=== PATIENT | female | born 1950 | race Caucasian/White ===

== ENCOUNTER 2016-07-12 22:33 | Inpatient (IN) | payer OTHER, MEDICARE ==
[~2016-07-12] VITALS: Ht 165.1 cm; Wt 74.8 kg
[~2016-07-12 22:33] MED LIST: ADVAIR DISKUS 21 DSK INH; ADVAIR DISKUS1 UNIT INH; ADVAIR DISKUS1 UNIT PO; ALBUTEROL 3 ML3 ML INH; AMITRIPTYLINE100 M1 PO; AMITRIPTYLINE100 MG PO; AMITRIPTYLINE50 MG PO; ASPIRIN CHILDRE81 MG PO; ASPIRIN EC81 M1 PO; ATIVAN0.5 MG PO; ATORVASTATIN CA20 MG PO; ATORVASTATIN CA40 MG PO; CARDIZEM 180 M180 MG PO; CARDIZEM CD 12120 MG PO; CARDIZEM CD180 MG PO; CELEBREX100 MG PO; CELEXA10 M1 PO; CEPHALEXIN500 M1 PO; CITALOPRAM HYDR10 MG PO; CLEOCIN HCL300 MG PO; DILTIAZEM 24HR180 M1 PO; DILTIAZEM ER120 MG PO; DILTIAZEM HCL240 MG PO; DILTIAZEM HYDR PO; ELAVIL 50 MG PO; FERGON240 MG PO; FERROUS GLUCON324 MG PO; FERROUS GLUCON325 MG PO; FOLIC ACID 1 MG PO; FOLIC ACID0.8 MG PO; FOLIC ACID1 M1 PO; FUROSEMIDE20 MG PO; GABAPENTIN100 MG PO; GABAPENTIN300 MG PO; HYDROCODONE/ACE1 TA1 PO; LASIX20 MG PO; LIDODERM 5% PAT1 PAT EXT; LOPRESSOR 25MG25 MG PO; LOPRESSOR50 MG PO; LOSARTAN POTASS25 MG PO; LOSARTAN POTASS50 MG PO; LYRICA50 M1 PO; LYRICA50 MG PO; MACROBID100 MG PO; MAG-OX 400400 MG PO; METFORMIN HCL1000 MG PO; METFORMIN HCL500 MG PO; METFORMIN1000 MG; METOPROLOL SUCC50 M1 PO; METOPROLOL TART50 MG PO; MIRALAX17 GM PO; NAPROXEN500 MG PO; NASONEX0.05 MG/Ac NS; NICOTINE7 MG/24 HR TP; NITRO-DUR1 EAC1 TOP; NITROSTAT0.4 M1 SL; NITROSTAT0.4 MG PO; NORCO 5-325 TA1 EACH PO; OMEPRAZOLE D/R20 MG PO; OMEPRAZOLE40 M1 PO; PERCOCET 325 MG1 TA2 PO; PROAIR HFA0.09 MG/Ac INH; PROTONIX 40MG T40 MG PO; ROXICODONE5 MG PO; SPIRIVA 18 MCG18 MCG INH; SPIRIVA18 MCG INH; Senokot S PO; TRAMADOL HCL50 MG PO; TYLENOL500 MG PO; ULTRAM(MONOGRAP50 MG PO; VANCOMYCIN 11000 MG IV; VITAB121000 PO; VITAMIN B-121000 MC3 PO; VITAMIN B12250 MCG PO
--- NOTE | 2016-07-12 22:41 | NUR ---
PT JOAN FROM HOME C/O "EMPHYSEMA EXACERBATION," PT STATES SHE HAS EMPHYSEMA AND WHEN SHE DRINKS ALCOHOL SHE HAS WORSENING SYMPTOMS AND SHE HAD A DRINK TODAY. PT ARRIVES ON 2L NC WHICH IS HER BASELINE. SATTING 98%. PT C/O OF FEELING WEAK THE PAST FEW DAYS BUT DENIES ANY SPECIFIC PAIN.
--- NOTE | 2016-07-12 22:53 | NUR ---
CXRAY BEING DONE AT BEDSIDE
--- NOTE | 2016-07-12 23:06 | RADIOLOGY REPORT ---
EXAMINATION: XR PORTABLE CHEST CLINICAL INFORMATION: COPD with weakness. Shortness of breath. COMPARISON: Multiple priors, most recently CT from 10/14/2015 TECHNIQUE: Portable AP view of the chest was obtained. FINDINGS: Cardiac leads overlie the chest. The lungs are well expanded. There is bibasilar subsegmental atelectasis. Oligemia of the upper lungs is consistent with known emphysema. No effusion or edema. No pneumothorax. The cardiomediastinal silhouette is unchanged. Chronic deformity of the right upper chest wall. IMPRESSION: Bibasilar subsegmental atelectasis. No dense consolidation. No edema.
[2016-07-12 23:21] LABS: ABSOLUTE BASOPHIL COUNT 0 /CUMM (0.0-0.2); ABSOLUTE EOSINOPHIL COUNT 0.3 /CUMM (0.0-0.7); ABSOLUTE LYMPH COUNT 1.7 /CUMM (1.2-3.4); ABSOLUTE MONOCYTE COUNT 0.6 /CUMM (0.10-0.60); BASOPHIL % 0.1 % (0.0-2.0); EOSINOPHIL % 3.8 % (0-5); GRANULOCYTE % 65.6 % (42.2-75.2); MEAN CORPUSCULAR HGB 21.8 PG (27.0-31.0); MEAN CORPUSCULAR HGB CONC 31.6 G/DL (33.0-37.0); MEAN CORPUSCULAR VOLUME 68.8 FL (81.0-99.0); MEAN PLATELET VOLUME 8.4 FL (7.4-10.4); PLATELET COUNT 216 /CUMM (130-400); RBC DISTRIBUTION WIDTH 16.4 % (11.5-14.5); RED BLOOD CELL CT 2.67 /CUMM (4.20-5.40); WHITE BLOOD CELL COUNT 7.6 /CUMM (4.8-10.8)
[2016-07-12 23:29] LABS: HEMATOCRIT 18.3 % (37-47)
--- NOTE | 2016-07-12 23:33 | NUR ---
CRITICAL TEST RESULTS [id number] LUIZA MONTANEZ 66 F TESTS AND RESULTS: HGB 5.8 HCT 18.3 Results received and read back by: LUIS ANGEL KEYES Results received date and time: 07/12/16 [id number] The following provider was notified of the results, and read the results back: RIKKI PEARSON Notified date and time: 07/12/16 at [id number]
--- NOTE | 2016-07-13 00:06 | NUR ---
PT MEDICATED WITH PROTONIX PER ORDER
--- NOTE | 2016-07-13 00:15 | ED DYSPNEA/ASTHMA COMPLAINT ---
History of Present Illness General Chief Complaint: Dyspnea (COPD, CHF, Other) Stated Complaint: SOB Source: patient, old records, friend Exam Limitations: no limitations Vital Signs & Intake/Output Vital Signs & Intake/Output Vital Signs Date Time Temp Pulse Resp B/P Pulse O2 O2 Flow FiO2 Ox Delivery Rate 07/12 2358 71 24 142/65 94 Nasal 3.0L Cannula 07/12 2238 96.8 65 20 138/67 98 Nasal 2.0L Cannula ED Intake and Output 07/13 0000 07/12 1200 Intake Total 0 Output Total Balance 0 Intake, Oral 0 Patient 160 lb Weight Allergies Coded Allergies: Sulfa (Sulfonamide Antibiotics) (Intermediate, ITCH 11/27/15) penicillin G (ITCH 11/27/15) Reconcile Medications Albuterol Sulfate (Proair Hfa) 0.09 MG/Actuation GUERITA 2 PUFF INH Q4-6 PRN PRN COPD (Reported) Albuterol Sulfate (Proventil) 2.5 MG/3 ML NEB 3 ML INH Q4-6 PRN PRN COPD ( Reported) Aspirin (Ecotrin) 81 MG ECT 1 TAB PO DAILY HEART HEALTH (Reported) Atorvastatin Calcium (Lipitor) 20 MG TABLET 1 TAB PO DAILY CHOLESTEROL ( Reported) Citalopram Hydrobromide (Celexa) 10 MG TAB 1 TAB PO DAILY MENTAL HEALTH ( Reported) Cyanocobalamin (Vitamin B-12) 1,000 MCG TAB 1 TAB PO DAILY V (Reported) DILTIAZEM HCL (Diltiazem 24HR Cd) 180 MG CER 1 CAP PO DAILY HEART (Reported) Fluticasone-Salmeterol (Advair 500-50 Diskus) 500 MCG-50 MCG/DOSE BLST.W.DEV 1 PUF INH BID COPD (Reported) Folic Acid 1 MG TABLET 1 TAB PO DAILY SUPPLEMENT (Reported) Hydrocodone/Acetaminophen ([place] 5-325 Tablet) 1 EACH TABLET 1-2 TAB PO Q6P PRN PAIN Lorazepam (Ativan) 0.5 MG TAB 1 TAB PO BID ANXIETY STOP TAKING AFTER EVENING DOSE ON 03/03/15 Metoprolol Tartrate (Lopressor) 25 MG TABLET 1 TAB PO BID HIGH BLOOD PRESSURE Reason to Stop at ADM: bradycardia, low bp Nitroglycerin (Nitrostat) 0.4 MG TAB.SUBL 0.4 MG PO PRN ANGINA (Reported) Nitroglycerin (Nitro-Dur) 1 EACH PATCH.TD24 1 PATCH TOP DAILY CHEST PAIN APPLY IN AM AND REMOVE AFTER 12 HOURS Omeprazole 40 MG ECC 1 CAP PO DAILY GI (Reported) Pregabalin (Lyrica) 50 MG CAPSULE 1 CAP PO BID neuropathy (Reported) Tiotropium [place] (Spiriva) 18 MCG CAP.W.DEV 1 CAP INH DAILY COPD (Reported) Core Measure Meds Pre-Hospital aspirin Triage Note: PT BIBA FROM HOME C/O "EMPHYSEMA EXACERBATION," PT STATES SHE HAS EMPHYSEMA AND WHEN SHE DRINKS ALCOHOL SHE HAS WORSENING SYMPTOMS AND SHE HAD A DRINK TODAY. PT ARRIVES ON 2L NC WHICH IS HER BASELINE. SATTING 98%. PT C/O OF FEELING WEAK THE PAST FEW DAYS BUT DENIES ANY SPECIFIC PAIN. Triage Nurses Notes Reviewed? yes Onset: Last week Duration: week(s):, constant, continues in ED, getting worse Timing: recent history Severity: moderate Activities at Onset: activity Prior Episodes/Possible Cause: occasional episodes Modifying Factors: Improves With: rest. Worsens With: movement. Associated Symptoms: lightheadedness, weakness LMP (ages 10-50): post menopausal : No Patient currently breastfeeds: No HPI: Several weeks prior to admission patient reports progressive weakness and fatigue lightheadedness shortness of breath improved with rest. She denies fever chills nausea vomiting diarrhea abdominal pain chest pain headache dysuria rash bleeding. She reports stools been normal color episode of diarrhea yesterday. Past History Travel History Traveled to [place] past 21 day No Medical History Any Pertinent Medical History? see below for history Neurological: NONE EENT: NONE Cardiovascular: aflutter, CAD, hypertension, AFIB/FLUTTER Respiratory: COPD Gastrointestinal: peptic ulcer disease Hepatic: NONE Renal: KIDNEY STONES ESWL, RENAL STENT PLACEME Musculoskeletal: DEGENERATIVE DISC ARTHRITIS PELVIC FX Psychiatric: alcohol dependence, depression Endocrine: diabetes Blood Disorders: NONE Cancer(s): breast cancer (1997 no chemotherapy ), cervical cancer (), salviary gland tumor WASHERY BOSS/Reproductive: NONE History of MRSA: Yes History of VRE: No History of CDIFF: No Surgical History Surgical History: BREAST LUMPECTOMY HYSTERECTOMY Psychosocial History Who do you live with Significant Other Services at Home None What is your primary language German Tobacco Use: Current Not Daily Family History Family History, If Any: MOTHER FH: kidney cancer FH: skin cancer BROTHER FH: lung cancer FHx: heart disease FATHER FH: diabetes mellitus Hx Contributory? No Review of Systems Review of Systems Constitutional: Reports: see HPI, weakness. EENTM: Reports: no symptoms. Respiratory: Reports: see HPI, short of breath. Cardiovascular: Reports: no symptoms. GI: Reports: no symptoms. Genitourinary: Reports: no symptoms. Musculoskeletal: Reports: no symptoms. Skin: Reports: no symptoms. Neurological/Psychological: Reports: no symptoms. Hematologic/Endocrine: Reports: no symptoms. Immunologic/Allergic: Reports: no symptoms. All Other Systems: Reviewed and Negative Physical Exam Physical Exam General Appearance: well developed/nourished, alert, awake, anxious, moderate distress, obese Head: atraumatic, normal appearance Eyes: Bilateral: PERRL, EOMI, pale conjunctivae. Ears, Nose, Throat: normal pharynx, normal ENT inspection Neck: normal inspection, supple, full range of motion, no midline tenderness Respiratory: chest non-tender, no respiratory distress, quiet respiration, decreased breath sounds Cardiovascular: regular rate/rhythm, normal peripheral pulses, norml femoral pulses equa Peripheral Pulses: 4+ carotid (R), 4+ carotid (L) Gastrointestinal: normal bowel sounds, soft, non-tender, no organomegaly Rectal: normal exam, normal rectal tone, heme positive stool, brown stool Extremities: normal inspection, normal capillary refill, normal range of motion, no edema Neurologic/Psych: no motor/sensory deficits, awake, alert, oriented x 3, normal mood/affect, juice scaleman II-XII nml as tested Skin: intact, warm/dry, pallor Lymphatic: no anterior cervical jed Core Measures ACS in differential dx? Yes Severe Sepsis Present: No Septic Shock Present: No Progress Differential Diagnosis: asthma, CHF, COPD, pneumonia Plan of Care: Orders Procedure Date/time Status Regular Diet 07/13 B Active Patient Data 07/13 0003 Active OXYGEN SETUP (GEN) 07/12 2353 Active Saline Lock 07/12 2353 Active Admit to inpatient 07/12 2353 Active Vital Signs 07/12 2353 Active Activity/Ambulation 07/12 2353 Active Code Status 07/12 2353 Active LEUKOCYTE POOR (PACKED CELLS) 07/12 2353 Active TYPE & SCREEN (NOT X-MATCH) 07/12 234 Active Intake & Output 07/12 232 Active TROPONIN LEVEL 07/12 2248 Complete MAGNESIUM 07/12 2248 Complete COMPREHENSIVE METABOLIC PANEL 07/12 2248 Complete CBC WITHOUT DIFFERENTIAL 07/12 2248 Complete B-TYPE NATRIURETIC PEP (BNP) 07/12 2248 Complete EKG 07/12 2233 Active Laboratory Tests 07/12/16 2300: Anion Gap 7, Estimated GFR > 60, BUN/Creatinine Ratio 43.8 H, Glucose 100 H, Calcium 8.0 L, Magnesium 1.8, Total Bilirubin 0.5, AST 42 H, ALT 39, Alkaline Phosphatase 152 H, Troponin I 0.01, Aow-H-Syfpekclotb Pept 1010 H, Total Protein 7.4, Albumin 3.7, Globulin 3.7, Albumin/Globulin Ratio 1.0 L, CBC w Diff NO MAN DIFF REQ, RBC 2.67 L, MCV 68.8 L, MCH 21.8 L, RDW 16.4 H, MPV 8.4, Gran % 65.6, Lymphocytes % 22.4, Monocytes % 8.1, Eosinophils % 3.8, Basophils % 0.1, Absolute Granulocytes 5.0, Absolute Lymphocytes 1.7, Absolute Monocytes 0.6, Absolute Eosinophils 0.3, Absolute Basophils 0, PUBS MCHC 31.6 L Diagnostic Imaging: Viewed by Me: Radiology Read. Discussed w/RAD: Radiology Read. CXR Impression: no acute abnormality Initial ED EKG: normal axis, normal intervals, normal p-waves, normal QRS complex, normal sinus rhythm, ST elevation (diffusely) Prior EKG: unchanged Rhythm Strip: normal sinus rhythm Departure Departure Time of Disposition: 12 Disposition: STILL A PATIENT Condition: Stable Clinical Impression Primary Impression: Upper GI bleeding Secondary Impressions: COPD exacerbation, Hyponatremia, Symptomatic anemia Referrals: SUJATA ZUÑIGA MD (PCP/Family) Departure Forms: Customer Survey General Discharge Information Admission Note Spoke With: MARYA LANTIGUA MD Documentation of Exam: Documentation of any treatments & extenuating circumstances including Concerns Regarding Discharge (functional status, medication knowledge or non-compliance, living conditions, etc.) that warrant an admission rather than observation: transfusion packed red blood cell medication adjustment GI evaluation continuing care discharge planning Critical Care Note Critical Care Note Critical Care Time: 30-74 min (40)
--- NOTE | 2016-07-13 00:23 | NUR ---
BED ASSIGNMENT [id number]
--- NOTE | 2016-07-13 00:45 | NUR ---
HOUSESTAFF AT BEDSIDE
--- NOTE | 2016-07-13 00:53 | NUR ---
PT A/O X4. RESP UNLABORED. SKIN WARM AND DRY. NO APPARENT DISTRESS.
--- NOTE | 2016-07-13 01:38 | History & Physical ---
LETICIA PEARSON,ASHLEY 07/13/16 0128: General Information and HPI MD Statement: I have seen and personally examined LUIZA MONTANEZ and documented this H&P. The patient is a 66 year old F who presented with a patient stated chief complaint of [Shortness of breath]. Source of Information: patient, old records, EMS Exam Limitations: no limitations History of Present Illness: Patient is a 66 YO F with PMH significant for MRSA + (2013), current smoker, COPD (on 2L home oxygen), CAD, HTN, AF/A.Flutter (not on anticoagulation), GERD, Diverticulosis, Hyponatremia (2/2 beer protomania), Diabetes, peripheral neuropathy, Nephrolithiasis (left ureteral stent), Breast cancer (s/p lumpectomy 1997), Cervical cancer 1979, salivary gland tumor came to the ER with increased weakness and progressive worsening of shortness of breath. She was able to walk around with a walker and short of breath at baseline with walking. For the past 1 week she was becoming increasingly short of breath even at rest, along with lightheadedness and dizziness. Today she had 4 beers after 2 weeks which acutely worsened her condition. She also reports cough with whitish phlegm production with chest pain. Her last BM was night (3days ago) - loose watery without any blood, preceeded by crampy abdominal pain. Still able to pass gas. She denies any fever, chills, nausea, vomiting, leg swellilng, blood loss from any region. She endorses decreased appetite these days. She denies any recent weight loss, sick contacts, travel, changes in vision/ hearing. Still smokes 1pack/day (50yr history), alcoholic. Denies illicit drug use. Follows Dr. Boss for cardio, Dr. Huntley is her pediatric nurse, Dr. Mendoza is her computer applications developer. Allergies/Medications Allergies: Coded Allergies: Sulfa (Sulfonamide Antibiotics) (Intermediate, ITCH 11/27/15) penicillin G (ITCH 11/27/15) Compliance With Home Meds: FAIR Past History Travel History Traveled to [place] past 21 day No Medical History Blood Transfusion Hx: Yes Neurological: NONE EENT: NONE Cardiovascular: aflutter, CAD, hypertension, AFIB/FLUTTER Respiratory: COPD Gastrointestinal: peptic ulcer disease Hepatic: NONE Renal: KIDNEY STONES ESWL, RENAL STENT PLACEME Musculoskeletal: DEGENERATIVE DISC ARTHRITIS PELVIC FX Psychiatric: alcohol dependence, depression Endocrine: diabetes Blood Disorders: NONE Cancer(s): breast cancer (1997 no chemotherapy ), cervical cancer (), salviary gland tumor INSIDE SALES COORDINATOR/Reproductive: NONE History of MRSA: Yes History of VRE: No History of CDIFF: No Surgical History Surgical History: BREAST LUMPECTOMY HYSTERECTOMY Past Family/Social History Family History Relations & Conditions if any MOTHER FH: kidney cancer FH: skin cancer BROTHER FH: lung cancer FHx: heart disease FATHER FH: diabetes mellitus Psychosocial History Where do you live? Home Who Do You Live With? self Services at Home: None Primary Language: Hebrew Smoking Status: Current Everyday Smoker ETOH Use: heavy use Illicit Drug Use: denies illicit drug use Living Will? no Functional Ability ADLs Independent: dressing, eating, toileting, bathing. Ambulation: independent IADLs Independent: shopping, housework, finances, food prep, telephone, medication admin. Review of Systems Review of Systems Constitutional: Reports: see HPI, malaise, weakness. EENTM: Reports: see HPI. Cardiovascular: Reports: see HPI, chest pain. Denies: orthopena, palpitations, peripheral edema. Respiratory: Reports: see HPI, cough, short of breath, sputum production. GI: Reports: see HPI, bloating, distention, nausea. Denies: abdominal pain, diarrhea, vomiting. Genitourinary: Reports: see HPI. Musculoskeletal: Reports: no symptoms, see HPI. Skin: Reports: no symptoms, see HPI. Neurological/Psychological: Reports: no symptoms, see HPI. Hematologic/Endocrine: Reports: no symptoms, see HPI. Immunologic/Allergic: Reports: no symptoms, see HPI. All Other Systems: Reviewed and Negative Comments ROS negative except the above Exam & Diagnostic Data Last 24 Hrs of Vital Signs/I&O Vital Signs Date Time Temp Pulse Resp B/P Pulse O2 O2 Flow FiO2 Ox Delivery Rate 07/13 0228 94 Nasal 4.0L Cannula 07/13 0200 22 96 Nasal 4.0L Cannula 07/13 0142 97.6 76 22 136/70 86 Nasal 2.5L Cannula 07/13 0108 98.3 85 20 130/69 96 Nasal 3.0L Cannula 07/12 2358 71 24 142/65 94 Nasal 3.0L Cannula 07/12 2238 96.8 65 20 138/67 98 Nasal 2.0L Cannula Intake & Output 07/13 0800 07/13 0000 07/12 1600 Intake Total 0 Output Total Balance 0 Intake, Oral 0 Patient 74.843 kg 72.575 kg Weight Physical Exam General Appearance Alert, Oriented X3, Cooperative, No Acute Distress Skin No Rashes, No Breakdown HEENT Atraumatic, PERRLA, EOMI Neck Supple, No JVD Cardiovascular Regular Rate, Normal S1, Normal S2, No Murmurs Lungs Clear to Auscultation, Normal Air Movement Abdomen No Tenderness, No Hepatospenomegaly, mildly distended with guarding for deep palpation. Hyperactive bowel sounds heard. Neurological Normal Speech, Strength at 5/5 X4 Ext, Normal Tone Extremities No Clubbing, No Cyanosis, No Edema Vascular Pulses Symmetrical Last 24 Hrs of Labs/Evan: Laboratory Tests 07/12/16 2300: Anion Gap 7, Estimated GFR > 60, BUN/Creatinine Ratio 43.8 H, Glucose 100 H, Calcium 8.0 L, Magnesium 1.8, Total Bilirubin 0.5, AST 42 H, ALT 39, Alkaline Phosphatase 152 H, Troponin I 0.01, [id number] Pept 1010 H, Total Protein 7.4, Albumin 3.7, Globulin 3.7, Albumin/Globulin Ratio 1.0 L, CBC w Diff NO MAN DIFF REQ, RBC 2.67 L, MCV 68.8 L, MCH 21.8 L, RDW 16.4 H, MPV 8.4, Gran % 65.6, Lymphocytes % 22.4, Monocytes % 8.1, Eosinophils % 3.8, Basophils % 0.1, Absolute Granulocytes 5.0, Absolute Lymphocytes 1.7, Absolute Monocytes 0.6, Absolute Eosinophils 0.3, Absolute Basophils 0, PUBS MCHC 31.6 L Diagnostic Data EKG Results NSR CXR Results NO acute abnormality suggested Other Results AXR Non obstructive bowel gas pattern visible Assessment/Plan Assessment: Patient is a 66 YO F with PMH significant for MRSA + (2013), current smoker, COPD (on 2L home oxygen), CAD, HTN, AF/A.Flutter (not on anticoagulation), GERD, Diverticulosis, Hyponatremia (2/2 beer protomania), Diabetes, peripheral neuropathy, Nephrolithiasis (left ureteral stent), Breast cancer (s/p lumpectomy 1997), Cervical cancer 1979, salivary gland tumor came to the ER with increased weakness and progressive worsening of shortness of breath. ER VS Afebrile, BP of 138/67mmHg, Pulse 71, On 2L NC Significant labs include H&H of 5.8/18.3, platelet count of 216 Sodium 128, potassium of 4.9 Guiac test in ER is positive Imaging CXR IMPRESSION: Bibasilar subsegmental atelectasis. No dense consolidation. No edema. AXR IMPRESSION: Nonobstructive bowel gas pattern. Mild colonic stool burden. The lung bases are clear. PLAN Acute drop in H&H with guiac positive stools (occult GI bleed) * H&H is 5.8/18.3 from 10.3/32.3 last march * Similar complaints in the past resolved with 5 units of PRBC * No signs of acute bleed with stable hemodynamics currently * Symptomatic anemia with shortness of breath, chest pain, lightheadedness and dizziness * 4units of PRBC's are ordered * GI consult in am for scopy if any * Monitor CBC closely Abdominal distention * Last night - loose watery without any blood, passing gas sitll. * AXR - distended bowel pattern without any obstruction * Currently started on diet COPD (on 2L home oxygen) * Currently short of breath without any wheezing which was more from anemia * Continue her home nebulizers and TRC * received a single dose of solumedrol 125mg IV in ER, no need for further IV steroids * rapid prednisone taper is suggested Histroy of hyponatremia - 128 now * Appears chronic * secondary to beet protomania * restric fluids for now * recheck BEP daily Alcohol abuse * History of heavy use * CIWA protocol * on folic acid and multivitamin Histroy of peripheral neuropathy * On pregabalin at home, would continue that History of hypertension * On metoprolol 25mg BID History of Atrial fibrillation/A.Flutter * Currently in NSR * on Diltiazem (Cardizem CD) 180mg daily History of depression * On citalopram 10mg daily - would continue that Code Status * Full Code As Ranked By This Provider Problem List: 1. ATRIAL FLUTTER 2. CHRONIC ALCOHOL ABUSE 3. Diabetes 4. Symptomatic anemia 5. Upper GI bleeding 6. Diverticulosis Core Measures/Miscellaneous Acute Coronary Syndrome ACS Diagnosis: No Cerebrovascular Accident CVA/TIA Diagnosis: No Congestive Heart Failure CHF Diagnosis: No Venous Thromboembolism VTE Risk Factors: Cancer/chemo/oth therapy VTE Prophylaxis Ordered Inpt: Pharm- Heparin No Mech VTE prophylaxis d/t: No contraindications No VTE Pharm Prophylaxis d/t: No contraindications VTE Diagnosis: No VTE Type: NONE VTE Confirmed by (Test): NONE Severe Sepsis Severe Sepsis Present: No Septic Shock Septic Shock Present: No Miscellaneous Documentation Attending Case Discussed With: ERIBERTO LANTIGUA MDYun Primary Care Physician: SUJATA ZUÑIGA MD Patient sees these Specialists Dr. Boss, Dr. Mendoza, Dr. Huntley Level of Patient Care: General Medicine MAITE LANTIGUA MD 07/13/16 0546: Attending MD Review Statement Attending Statement Attending MD Statement: examined this patient, discuss w/resident/PA/BACTERIOLOGIST FOOD, agreed w/resident/PA/BACTERIOLOGIST FOOD Attending Assessment/Plan: 66 yo F smoker with h/o chronic hypoxic respiratory failure with moderate COPD on 2L, Afib not on AC due to falls, alcohol abuse, MRSA, CAD, HTN, T2DM, is here with 1 week h/o progressively worsening dyspnea on exertion, weakness and lightheadedness. She has exertional dyspnea at baseline and a chronic cough, but reports the symptoms have gotten worse. She continues to smoke and consumes alcohol (about 4 beers) every 1-2 weeks. She denies melena, hematemesis or BRBPR. She is on baby aspirin, but denies frequent NSAID use. Last EGD (2014): short segment Maldonado's esophagus/ hiatal hernia path suggestive of gastric mucosa with intestinal metaplasia. Colonoscopy: polyp (tubular adenoma), diverticulosis. She was last admitted Feb 2015 for fall, alcohol use, hyponatremia and was advised 1200 fluid restriction. VSS. Exam AAO, in mild distress due to dyspnea, MMM, Chest b/l reduced air entry at bases, no wheeze or rhonchi. Abd soft, distended, BS+. Labs: H/H 5.8/18.3, microcytic anemia, Na 128, BUN 35, AST 42, trop neg, proBNP 1010, CXR: bibasilar subsegmental atelectasis, no edema or consolidation. EKG: SR. Rectal exam: brown stool, heme positive. 1. Acute on chronic hypoxic respiratory failure in the setting of acute on chronic anemia (?slow GI bleed), with mild COPD exacerbation. Guaiac all stools, keep Hb > 8.0, transfuse 2 units PRBC, check orthostats, obtain GI consult, continue IV PPI. Avoid NSAIDs, hold aspirin. Check iron studies, TSH, free T4, B12 and folic acid. TRC nebs, sputum culture, received IV steroid in ER, will do a rapid PO steroid taper, no need for tj [place] consult (Dr. Huntley) in AM. Patient reports she does not use Advair as it cause her chest tightness. Serial EKG and troponin, obtain Echo. Consider cardio consult if any new changes. Smoking cessation counseling. 2. Abdominal distension, Xray shows nonobstructive bowel gas pattern, mild colonic stool. Will give bowel regime. 3. Hyponatremia 2/2 alcohol use likely beer potomania. Check alcohol levels. Initiate fluid restriction of 1200 mls. Give banana bag. CIWA protocol and monitor for withdrawal if any. DVT ppx Alps. Full code. NOBLE STAFFORD 07/13/16 0558: General Information and HPI Allergies/Medications Home Med list Aspirin (Ecotrin*) 81 MG TABLET.DR 1 TAB PO DAILY Supplement (Reported) Citalopram Hydrobromide (Celexa) 10 MG TABLET 1 TAB PO DAILY Mental health ( Reported) Cyanocobalamin (Vitamin B-12) 1,000 MCG TABLET 1 TAB PO DAILY Supplement ( Reported) Diltiazem HCl (Diltiazem 24HR Cd) 180 MG CAP.ER.24H 1 CAP PO DAILY HTN ( Reported) Folic Acid 1 MG TABLET 1 TAB PO DAILY Supplement (Reported) Metoprolol Tartrate (Lopressor) 50 MG TABLET 0.5 TAB PO BID heart (Reported) Nitroglycerin (Nitrostat) 0.4 MG TAB.SUBL 1 TAB SL AD PRN Angina (Reported) 1st sign of attack; may repeat every 5 minutes until relief; if pain persists after 3 tablets in 15 minutes, prompt medical att Omeprazole 40 MG CAPSULE.DR 1 CAP PO DAILY GERD (Reported) Pregabalin (Lyrica) 50 MG CAPSULE 1 CAP PO BID Peripheral neuropathy ( Reported) Tiotropium [place] (Spiriva) 18 MCG CAP.W.DEV 1 CAP INH DAILY COPD (Reported) Resident Review Statement Resident Statement: examined this patient, discussed with internet and e business project manager, agreed with internet and e business project manager, discussed with family Other Findings: This is a 66-year-old old female, current smoker, history of alcoholism, past medical history of hypertension, atrial flutter, coronary artery disease, COPD on 2 L of home oxygen, chronic alcohol dependence (6 beers per day), nephrolithiasis, chronic back pain, history of multiple malignancies (breast cancer, salivary) chronic hyponatremia, nephrolithiasis status post left ventricle stent placement, came in today with chief complaint of worsening shortness of breath since last 1 week prior to admission. The patient does have COPD at baseline and uses 2 L of home oxygen, she continues to smoke 1-1/2 pack per day, however she says that her shortness of breath has been worse since last 1 week, she has been feeling extremely tired and fatigued and upon walking few steps she becomes extremely short of breath. She also complained of associated lightheadedness and dizziness. On the same day prior to admission she had consumed 4 beers after 2 weeks of abstinence. He also complains of vague lower abdominal pain, she describes it as discomfort. She also reported one episode of diarrhea along with lower abdominal discomfort, no blood. Review of system positive for pallor, shortness of breath. Physical exam patient alert oriented 3. HEENT. Pupils equal and reactive to light, no lymphadenopathy, mucous membranes moist. CVS S1 and S2 present, no murmur. Lungs bilaterally clear lungs, air entry present. PA : Bowel sounds present, soft, mild tenderness on deep palpation in the lower abdominal area. Start Diamox present bilaterally in the lower abdomen. Extremities : Pulses palpable, capillary refill normal, no cyanosis clubbing or edema. Vitals on admission TMax of 96.8, pulse of 71, respiration of 24, blood pressure of 142/65, she was 94% saturating on 3 L. Relevant labs white count of 7.6, H/H of 5.8/18.3 (baseline H/H of 10.3/32.3), platelet of 216. Sodium of 128 (baseline sodium between 123-131), potassium of 4.9, BUN and creatinine of 35/0.8, glucose of 100. ProBNP elevated at 1010 (however baseline proBNP tends to be between 2000 and 3000). Chest x-ray did not show any acute cardiopulmonary findings other than bilateral subsegmental atelectasis. No evidence of any consolidation. Of note patient had last colonoscopy with polypectomy on 03/21/2015 and pathology was negative for any carcinoma. Previosuly Patient had a nuclear stress test with dipyridamole 221st and there was no EKG evidence of ischemia. Last echo was 11/27/2015 with greater than 55% ejection fraction, no wall motion abnormalities, trace MR, TR, right ventricular systolic pressure 54 mmHg. Patient also had PFTs on 08/03/2011 with mild obstructive lung disease. Patient follows up with Dr. de leon as her pediatric nurse, Dr. Mendoza as the GI doctor and Dr. Boss for cardiology. We will admit the patient to general medicine floor for the treatment of following problems. #1 Acute blood loss anemia ? Occult GI bleed. * Stool guaiac was positive while in the emergency department. * Continue to maintain 2 large-bore IV needles all the time. * Cross type and match. * Please transfuse 3-4 units of packed red blood cells once the cross-matching and typing is done. * Continue to monitor CBCs q12 * Continue IV PPI. * If any active bleed/concerning bleed, please contact GI stat * Abdominal x-ray showed nonobstructive bowel gas pattern, mild colonic stool burden. * Patient was started on when necessary MiraLAX and when necessary Colace. * We will check iron studies, B12 and folate levels for further investigation of the anemia. * we will hold aspirin #2 Acute on chronic hypoxemic respiratory failure. * Patient has history of COPD, however the current shortness of breath seems to be secondary to significant symptomatic anemia. * Continue TRC nebulizations. She'll be Dr. Huntley in the a.m. * Patient says that she does not use Advair as this gives her chest tightness. * Continue oxygen with nasal cannula to maintain saturation greater than 92% all the time. Problem #3 hyponatremia * The patient does not seem extremely dry, this could be euvolemic versus hypovolemic hyponatremia. * She has extensive history of consuming beer this could also be secondary to be a report of david. * At baseline her sodium does tend to run on the lower side. * However we will continue water restriction and to new to trend the sodium. Problem #4 history of alcoholism. * Patient's alcohol level is within normal limits. * She had drank a few beers one day prior to admission however had been sober for last 2 days. * We will give the patient banana bag, multivitamin thiamine and folate. * We will continue CIWA protocol for now. * Further hospital course, if the patient does not seem to be withdrawing from alcohol, please Dc CIWA. 5. History of coronary artery disease and A. fib * She is in sinus rhythm right now. She was not started on any anticoagulation because of history of multiple falls. * Continue Cardizem 180 mg daily. * Hold aspirin 81 mg daily * Continue nitroglycerin 0.4 mg as needed for chest pain * Initial troponins were negative.Continue metoprolol 25 mg twice a day.Continue Lipitor 20 mg daily Continue home medication of Celexa 10 mg once daily, B12, Lopressor 25 mg once daily, A, 50 mg once daily, and spiriva DVT prophylaxis with Alps. [id number] and severe pain pathway ordered. Patient is full code. Heart healthy diet.
[2016-07-13 01:42] VITALS: BP 136/70
--- NOTE | 2016-07-13 03:31 | NUR ---
RECEIVED PATIENT FROM ED. SHORT OF BREATH ON ARRIVAL, SP02 84% ON 3L NC. INCREASED TO 5L, SP02 INCREASED TO 96%, DECREASED TO 4L, SP02 94%. LUNG SOUNDS ARE FINE CRACKLES WITH SCATTERED WHEEZES. LESS SOB AFTER SETTLED IN. PT STATES SHE IS A CURRENT SMOKER AND DRINKS 5 BEERS DAILY. BED ALARM SHEEP FARMER COOL WITHIN REACH. PT STATES SHE HAS NOT BEEN VOMITING OR HAVING DARK STOOLS. PT HAS H/H 5.8, 18.3. VSS. 1ST UNIT OF BLOOD STARTED AND PATIENT TRANSPORTED TO [facility] WITH RN AND MST. ABDOMEN IS SOFT/DISTENDED. ORIENTED TO 2NB.
--- NOTE | 2016-07-13 03:45 | RADIOLOGY REPORT ---
EXAMINATION: XR ABDOMEN MULTIPLE VIEWS CLINICAL INDICATION: Distention, diarrhea. Mild guarding. COMPARISON: 12/12/2014 TECHNIQUE: 2 views of the abdomen FINDINGS: There is a nonobstructive bowel gas pattern. Gas and stool are seen throughout the colon with stool in the rectum. No free air. Degenerative changes of the spine. The lung bases are clear. IMPRESSION: Nonobstructive bowel gas pattern. Mild colonic stool burden.
--- NOTE | 2016-07-13 05:08 | NUR ---
PT COMPLAING OF PAIN ACROSS CHEST. DR. MELGAR NOTIFIED. EKG AND TROPONIN DONE. QUESTIONED OF TRANSFUSION REACTION TO MD PT JUST COMPLETED ONE UNIT OF BLOOD. DOES NOT WISH TO WORK UP FOR TRANSFUSION REACTION PATIENT CAME IN WITH THIS COMPLAINT. 2ND UNIT OF BLOOD HUNG. TYLENOL GIVEN FOR PAIN
[2016-07-13 05:28] LABS: ABSOLUTE BASOPHIL COUNT 0 /CUMM (0.0-0.2); ABSOLUTE EOSINOPHIL COUNT 0 /CUMM (0.0-0.7); ABSOLUTE GRANULOCYTE CT 4.5 /CUMM (1.4-6.5); ABSOLUTE LYMPH COUNT 0.5 /CUMM (1.2-3.4); ABSOLUTE MONOCYTE COUNT 0 /CUMM (0.10-0.60); BASOPHIL % 0.1 % (0.0-2.0); EOSINOPHIL % 0.2 % (0-5); GRANULOCYTE % 88.5 % (42.2-75.2); MEAN CORPUSCULAR HGB 22.9 PG (27.0-31.0); MEAN CORPUSCULAR HGB CONC 31.9 G/DL (33.0-37.0); MEAN CORPUSCULAR VOLUME 71.8 FL (81.0-99.0); MEAN PLATELET VOLUME 8.2 FL (7.4-10.4); PLATELET COUNT 188 /CUMM (130-400); RBC DISTRIBUTION WIDTH 17.6 % (11.5-14.5)
[2016-07-13 05:39] LABS: HEMATOCRIT 23.7 % (37-47)
--- NOTE | 2016-07-13 05:47 | Admission Certification ---
Admission Certification Certification Statement - As attending physician, I certify that at the time of - admission, based on clinical presentation, severity of - symptoms, need for further diagnostic testing and - therapeutic interventions, and risk of adverse outcomes - without in-hospital treatment, in my clinical assessment, - this patient requires an acute hospital stay for a minimum - of two nights or longer. I have also considered psychsocial - factors such as support system, advanced age, financial - issues, cognitive issues, and failed out-patient treatments, - past re-admission history, safety of patient, and lack of - compliance as applicable. Specific rationale supporting this admission is: Acute on chronic hypoxic respiratory failure, acute on chronic symptomatic anemia, possible COPD exacerbation.
[2016-07-13 05:58] LABS: WHITE BLOOD CELL COUNT 5.1 /CUMM (4.8-10.8)
--- NOTE | 2016-07-13 08:13 | Cons- Gastroenterology ---
General Information and HPI Consulting Request Date of Consult: 07/13/16 Requested By: GRZEGORZ PEARSON,MARYA Reason for Consult: Anemia, change in bowel habits. Source of Information: patient, old records Exam Limitations: no limitations History of Present Illness: Ms. Vega is a 66 year old female with a history of COPD on home o2 who presented to last night with complaints of worsening shortness of breath. She notes that over the past several weeks she has had progressive shortness of breath to the point where she has not even been able to walk a few steps. She denies any fevers or chills and she has been without any sputum production. She also reports diffuse chest pains with the shortness of breath. She has been having some loose stool, but she denies black tarry stool and she has not noted any blood in her stool. She has also been without any spitting abdominal pain with eating, heartburn or dysphagia. She underwent an endoscopic workup in March 2015 for anemia which was unremarkable at that time. She has not undergone a recent PillCam, but she notes having one in 2006 that showed non- bleeding AVMs. On arrival in the emergency room she was hemodynamically stable, but was found to have a hemoglobin of 5.8 with an MCV of 71.8 which was significant fall from when her hemoglobin was last checked to [facility] computer system in March 2016 when it was 10.3. She was admitted to the medical service where she has remained stable and has not had any bowel movements. She has continued to complain of some chest pain, but does report feeling mildly improved after receiving 2 units of packed red blood cells last night. Allergies/Medications Allergies: Coded Allergies: Sulfa (Sulfonamide Antibiotics) (Intermediate, ITCH 11/27/15) penicillin G (ITCH 11/27/15) Home Med List: Aspirin (Ecotrin*) 81 MG TABLET.DR 1 TAB PO DAILY Supplement (Reported) Citalopram Hydrobromide (Celexa) 10 MG TABLET 1 TAB PO DAILY Mental health ( Reported) Cyanocobalamin (Vitamin B-12) 1,000 MCG TABLET 1 TAB PO DAILY Supplement ( Reported) Diltiazem HCl (Diltiazem 24HR Cd) 180 MG CAP.ER.24H 1 CAP PO DAILY HTN ( Reported) Folic Acid 1 MG TABLET 1 TAB PO DAILY Supplement (Reported) Metoprolol Tartrate (Lopressor) 50 MG TABLET 0.5 TAB PO BID heart (Reported) Nitroglycerin (Nitrostat) 0.4 MG TAB.SUBL 1 TAB SL AD PRN Angina (Reported) 1st sign of attack; may repeat every 5 minutes until relief; if pain persists after 3 tablets in 15 minutes, prompt medical att Omeprazole 40 MG CAPSULE.DR 1 CAP PO DAILY GERD (Reported) Pregabalin (Lyrica) 50 MG CAPSULE 1 CAP PO BID Peripheral neuropathy ( Reported) Tiotropium [place] (Spiriva) 18 MCG CAP.W.DEV 1 CAP INH DAILY COPD (Reported) Current Medications: Current Medications Sig/Miriam Start time Last Medication Dose Route Stop Time Status Admin Albuterol Sulfate 3 ML ONCE ONE 07/12 2299 DC 07/12 INH 07/12 2300 225 Citalopram 10 MG DAILY 07/13 1000 AC Hydrobromide PO Cyanocobalamin 1,000 MCG DAILY 07/13 1000 AC PO Diltiazem HCl 180 MG DAILY 07/13 1000 AC PO Docusate Sodium 100 MG DAILY NEEDED PRN 07/13 0715 AC PO Folic Acid 1 MG DAILY 07/13 1000 AC PO Ipratropium [place] 2.5 ML ONCE ONE 07/12 2299 DC 07/12 INH 07/12 2301 2258 Methylprednisolone 0 .STK-MED ONE 07/12 2306 DC .ROUTE Methylprednisolone 125 MG ONCE ONE 07/120 DC 07/12 IV 07/12 2301 2307 Metoprolol Tartrate 25 MG BID 07/13 1000 AC PO Omeprazole 40 MG DAILY AC 07/13 0700 AC 07/13 PO 0703 Pantoprazole Sodium 40 MG BOLUS ONE 07/130 DC 07/13 IV 07/13 020 0416 Pantoprazole Sodium 0 .STK-MED ONE 07/12 2358 DC IV Pantoprazole Sodium 40 MG ONCE ONE 07/12 2345 DC 07/12 IV 07/12 2346 2358 Polyethylene Glycol 17 GM DAILY PRN 07/13 0715 AC PO Potassium Chloride 40 MEQ .Q10H 07/13 0200 AC Dextrose/Water 1,000 ML IV Prednisone 40 MG DAILY 07/13 1000 AC PO Pregabalin 50 MG BID 07/13 1000 AC PO Past History Travel History Traveled to [place] past 21 day No Medical History Blood Transfusion Hx: Yes Neurological: NONE EENT: NONE Cardiovascular: aflutter, CAD, hypertension, AFIB/FLUTTER Respiratory: COPD Gastrointestinal: peptic ulcer disease, GERD, barretts, SB pill cam in 2007 showed non-bleeding AVMs Hepatic: NONE Renal: KIDNEY STONES ESWL, RENAL STENT PLACEME Musculoskeletal: DEGENERATIVE DISC ARTHRITIS PELVIC FX Psychiatric: alcohol dependence, depression Endocrine: diabetes Blood Disorders: NONE Cancer(s): breast cancer (1997 no chemotherapy ), cervical cancer (), salviary gland tumor PER DIEM/Reproductive: NONE Surgical History Surgical History: BREAST LUMPECTOMY HYSTERECTOMY Family History Relations & Conditions If Any: MOTHER FH: kidney cancer FH: skin cancer BROTHER FH: lung cancer FHx: heart disease FATHER FH: diabetes mellitus Psychosocial History Where Do You Live? Home Who Do You Live With? self Services at Home: None Primary Language: Czech Smoking Status: Current Everyday Smoker ETOH Use: heavy use Illicit Drug Use: denies illicit drug use Living Will? no Functional Ability ADLs Independent: dressing, eating, toileting, bathing. Ambulation: independent IADLs Independent: shopping, housework, finances, food prep, telephone, medication admin. Review of Systems Review of Systems Constitutional: Reports: malaise, weakness. Denies: chills, fever. EENTM: Denies: no symptoms. Cardiovascular: Reports: chest pain, palpitations. Denies: peripheral edema. Respiratory: Reports: short of breath. Denies: cough, hemoptysis. GI: Reports: see HPI. Genitourinary: Denies: no symptoms. Musculoskeletal: Reports: joint pain, muscle pain. Denies: joint swelling. Skin: Denies: no symptoms. Neurological/Psychological: Denies: no symptoms. Hematologic/Endocrine: Denies: no symptoms. Immunologic/Allergic: Denies: no symptoms. All Other Systems: Reviewed and Negative Exam & Diagnostic Data Vital Signs and I&O Vital Signs Date Time Temp Pulse Resp B/P Pulse O2 O2 Flow FiO2 Ox Delivery Rate 07/13 0228 94 Nasal 4.0L Cannula 07/13 0200 22 96 Nasal 4.0L Cannula 07/13 0142 97.6 76 22 136/70 86 Nasal 2.5L Cannula 07/13 0108 98.3 85 20 130/69 96 Nasal 3.0L Cannula 07/12 2358 71 24 142/65 94 Nasal 3.0L Cannula 07/128 96.8 65 20 138/67 98 Nasal 2.0L Cannula Intake & Output 07/13 0400 07/12 04007/11 0400 Intake Total 800 0 Output Total 800 Balance 0 0 Intake, Blood 600 Product Intake, Oral 200 0 Number 2 Bowel Movements Output, Urine 800 Patient 165 lb Weight Physical Exam General Appearance: alert, awake, anxious, moderate distress Head: atraumatic, normal appearance Eyes: Bilateral: normal appearance. Ears, Nose, Throat: normal pharynx, normal ENT inspection, hearing grossly normal Neck: normal inspection, supple, full range of motion Respiratory: chest non-tender, lungs clear, decreased breath sounds Cardiovascular: regular rate/rhythm Gastrointestinal: normal bowel sounds, soft, non-tender, no organomegaly Rectal: deferred Back: normal inspection, normal range of motion Extremities: normal inspection Neurologic/Psych: no motor/sensory deficits, awake, alert, oriented x 3 Skin: intact, normal color, warm/dry Results Pertinent Lab Results: Laboratory Tests 07/13 07/12 0504 2300 Chemistry Sodium (137 - 145 mmol/L) 128 L Potassium (3.5 - 5.1 mmol/L) 4.9 Chloride (98 - 107 mmol/L) 95 L Carbon Dioxide (22 - 30 mmol/L) 26 Anion Gap (5 - 16) 7 BUN (7 - 17 mg/dL) 35 H Creatinine (0.5 - 1.0 mg/dL) 0.8 Estimated GFR (>60 ml/min) > 60 BUN/Creatinine Ratio (7 - 25 %) 43.8 H Glucose (65 - 99 mg/dL) 100 H Calcium (8.4 - 10.2 mg/dL) 8.0 L Magnesium (1.6 - 2.3 mg/dL) 1.8 Total Bilirubin (0.2 - 1.3 mg/dL) 0.5 AST (14 - 36 U/L) 42 H ALT (9 - 52 U/L) 39 Alkaline Phosphatase (<127 U/L) 152 H Troponin I (< 0.11 ng/ml) < 0.01 0.01 Qez-O-Cfrgfyodedl Pept (<125 pg/mL) 1010 H Total Protein (6.3 - 8.2 g/dL) 7.4 Albumin (3.5 - 5.0 g/dL) 3.7 Globulin (1.9 - 4.2 gm/dL) 3.7 Albumin/Globulin Ratio (1.1 - 2.2 %) 1.0 L Hematology CBC w Diff NO MAN DIFF REQ NO MAN DIFF REQ WBC (4.8 - 10.8 /CUMM) 5.1 7.6 RBC (4.20 - 5.40 /CUMM) 3.30 L 2.67 L Hgb (12.0 - 16.0 G/DL) 7.6 L 5.8 *L Hct (37 - 47 %) 23.7 L 18.3 *L MCV (81.0 - 99.0 FL) 71.8 L 68.8 L MCH (27.0 - 31.0 PG) 22.9 L 21.8 L RDW (11.5 - 14.5 %) 17.6 H 16.4 H Plt Count (130 - 400 /CUMM) 188 216 MPV (7.4 - 10.4 FL) 8.2 8.4 Gran % (42.2 - 75.2 %) 88.5 H 65.6 Lymphocytes % (20.5 - 51.1 %) 10.5 L 22.4 Monocytes % (1.7 - 9.3 %) 0.7 L 8.1 Eosinophils % (0 - 5 %) 0.2 3.8 Basophils % (0.0 - 2.0 %) 0.1 0.1 Absolute Granulocytes (1.4 - 6.5 /CUMM) 4.5 5.0 Absolute Lymphocytes (1.2 - 3.4 /CUMM) 0.5 L 1.7 Absolute Monocytes (0.10 - 0.60 /CUMM) 0 L 0.6 Absolute Eosinophils (0.0 - 0.7 /CUMM) 0 0.3 Absolute Basophils (0.0 - 0.2 /CUMM) 0 0 PUBS MCHC (33.0 - 37.0 G/DL) 31.9 L 31.6 L Toxicology Serum Alcohol (<10 MG/DL) < 10.0 Imaging/Other Studies: 03/22 colonoscopy:Findings: The rectum was normal. There were sigmoid diverticula. There was a diminutive polyp at 40 cm which was resected with cold snare, with good hemostasis. The remainder of the colon to the base of the cecum was unrevealing. There were no obstructing lesions identified, nor evident bleeding lesions. Impression: * Polyp * Diverticulosis * Incomplete preparation COLON POLYP AT 40 CM.: TUBULAR ADENOMA. NEGATIVE FOR EVIDENCE OF INVASIVE CARCINOMA. EGD: Findings: The esophagus had normal caliber and contour. The mucosa was intact throughout. There were no areas of erosion, ulceration or nodularity. There were no varices. The gastroesophageal junction was at 37 cm from the incisors, with an irregular Z line. This was examined and white light and narrow band imaging. Biopsies were obtained in retroflexion. The cardia was otherwise normal. There was a small hiatal hernia. The stomach had normal distention, and active antral peristalsis. The mucosa and folds were normal throughout. The pyloric channel, duodenal bulb and duodenal sweep were normal. Impression: * Short segment Maldonado's esophagus * Small hiatal hernia Bx: gastric mucosa with IM, mild chronic inflammation and reactive squamous mucosa Assessment/Plan Assessment/Recommendations: Assessment: Ms. Monsalve is a 66-year-old female with COPD who presents with worsening shortness of breath likely secondary to her anemia as she has had almost a 5 g hemoglobin drop over the past 3 months. As she has a low MCV and denies any history of melena or bright blood per rectum I suspect she has had occult blood losses over the past several months which is likely from small bowel AVMs which were appreciated on a PillCam in 2006. She underwent a colonoscopy and endoscopy in March 2015 which I do not feel need to be repeated at this time, albeit it should be noted that the preparation on the colonoscopy was noted to be suboptimal. Considering she is without active overt bleeding and her hemoglobin has corrected appropriately with transfusion so far I'm hopeful that she can be discharged after receiving a few more units to either pursue a repeat small bowel PillCam as an outpatient and/or a double balloon enteroscopy if it is felt she can tolerate it with her underlying lung disease. Recommendations: 1. Follow CBCs every 12 hours and transfuse as needed to keep hemoglobin greater than 8 or as per cardiology recommendations. 2. Avoid NSAIDs. 3. Notify GI for signs of overt GI bleeding. 4. Maintain 2 large-bore IVs at all times. 5. Advance diet as tolerated 6. Follow up iron studies and would start supplemental iron 7. If patient has diarrhea while inpatient will check stool for C. difficile, culture, and O&P. 8. If she remains without signs of overt GI bleeding consideration will be given to pursue an outpatient small bowel PillCam versus direct referral for a double-balloon enteroscopy if it is felt that her respiratory status can tolerate such a procedure. 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 As of now there are no plans to pursue a repeat endoscopic workup while an inpatient. Problem List: 1. ATRIAL FLUTTER 2. Anemia 3. GI bleeding 4. Upper GI bleeding 5. Symptomatic anemia Copies To: ZARA PEARSON,SUJATA Consult Acknowledgment - Thank you for your consult request.
[2016-07-13 08:22] VITALS: BP 130/62
[2016-07-13 12:08] VITALS: BP 130/68
--- NOTE | 2016-07-13 12:12 | Cons- Pulmonary ---
General Information and HPI Consulting Request Date of Consult: 07/13/16 Requested By: Med team History of Present Illness: Ms. Vega is a 66 year old female with a history of COPD on home o2 who presented to last night with complaints of worsening shortness of breath. She notes that over the past several weeks she has had progressive shortness of breath to the point where she has not even been able to walk a few steps. She denies any fevers or chills and she has been without any sputum production. She also reports diffuse chest pains with shortness of breath. She has been having some loose stool, but she denies black tarry stool and she has not noted any blood in her stool. She has also been without any spitting abdominal pain with eating, heartburn or dysphagia. She underwent an endoscopic workup in March 2015 for anemia which was unremarkable at that time. She has not undergone a recent PillCam, but she notes having one about 15 years ago for anemia and she is uncertain of the results. On arrival in the emergency room she was hemodynamically stable, but was found to have a hemoglobin of 5.8 with an MCV of 71.8 which was significant fall from when her hemoglobin was last checked to [facility] computer system in March 2016 when it was 10.3. She was admitted to the medical service where she has remained stable and has not had any bowel movements. She has continued to complain of some chest pain, but does report feeling mildly improved after receiving 2 units of packed red blood cells last night. She also reports cough with whitish phlegm production with chest pain. Unfortunately she continues to drink and smoke recently Allergies/Medications Allergies: Coded Allergies: Sulfa (Sulfonamide Antibiotics) (Intermediate, ITCH 11/27/15) penicillin G (ITCH 11/27/15) Home Med List: Aspirin (Ecotrin) 81 MG ECT 1 TAB PO DAILY HEART HEALTH (Reported) Citalopram Hydrobromide (Celexa) 10 MG TAB 1 TAB PO DAILY MENTAL HEALTH ( Reported) Cyanocobalamin (Vitamin B-12) 1,000 MCG TAB 1 TAB PO DAILY V (Reported) DILTIAZEM HCL (Diltiazem 24HR Cd) 180 MG CER 1 CAP PO DAILY HEART (Reported) Folic Acid 1 MG TABLET 1 TAB PO DAILY SUPPLEMENT (Reported) Metoprolol Tartrate (Lopressor) 25 MG TABLET 1 TAB PO BID HIGH BLOOD PRESSURE Reason to Stop at ADM: bradycardia, low bp Nitroglycerin (Nitrostat) 0.4 MG TAB.SUBL 0.4 MG PO PRN ANGINA (Reported) Omeprazole 40 MG ECC 1 CAP PO DAILY GI (Reported) Pregabalin (Lyrica) 50 MG CAPSULE 1 CAP PO BID neuropathy (Reported) Tiotropium [place] (Spiriva) 18 MCG CAP.W.DEV 1 CAP INH DAILY COPD (Reported) Review of Systems Comments Review of Systems Constitutional: Reports: see HPI, malaise, weakness. EENTM: Reports: see HPI. Cardiovascular: Reports: see HPI, chest pain. Denies: orthopena, palpitations, peripheral edema. Respiratory: Reports: see HPI, cough, short of breath, sputum production. GI: Reports: see HPI, bloating, distention, nausea. Denies: abdominal pain, diarrhea, vomiting. Genitourinary: Reports: see HPI. Musculoskeletal: Reports: no symptoms, see HPI. Skin: Reports: no symptoms, see HPI. Neurological/Psychological: Reports: no symptoms, see HPI. Hematologic/Endocrine: Reports: no symptoms, see HPI. Immunologic/Allergic: Reports: no symptoms, see HPI. All Other Systems: Reviewed and Negative Comments ROS negative except the above Past History Travel History Traveled to [place] past 21 day No Medical History Blood Transfusion Hx: Yes Neurological: NONE EENT: NONE Cardiovascular: aflutter, CAD, hypertension, AFIB/FLUTTER Respiratory: COPD Gastrointestinal: peptic ulcer disease, GERD, barretts, SB pill cam in 2006 showed non-bleeding AVMs Hepatic: NONE Renal: KIDNEY STONES ESWL, RENAL STENT PLACEME Musculoskeletal: DEGENERATIVE DISC ARTHRITIS PELVIC FX Psychiatric: alcohol dependence, depression Endocrine: diabetes Blood Disorders: NONE Cancer(s): breast cancer (1998 no chemotherapy ), cervical cancer (), salviary gland tumor MANDARIN SPEAKING NANNY/Reproductive: NONE Surgical History Surgical History: BREAST LUMPECTOMY HYSTERECTOMY Family History Relations & Conditions If Any: MOTHER FH: kidney cancer FH: skin cancer BROTHER FH: lung cancer FHx: heart disease FATHER FH: diabetes mellitus Psychosocial History Where Do You Live? Home Who Do You Live With? self Services at Home: None Primary Language: Yakut Smoking Status: Current Everyday Smoker ETOH Use: heavy use Illicit Drug Use: denies illicit drug use Living Will? no Functional Ability ADLs Independent: dressing, eating, toileting, bathing. Ambulation: independent IADLs Independent: shopping, housework, finances, food prep, telephone, medication admin. Exam & Diagnostic Data Last 24 Hrs of Vital Signs/I&O Vital Signs Date Time Temp Pulse Resp B/P Pulse O2 O2 Flow FiO2 Ox Delivery Rate 07/13 1208 85 130/68 07/13 0822 97.8 88 20 130/62 94 Nasal 4.0L Cannula 07/13 0816 76 136/70 07/13 0800 Nasal 4.0L Cannula 07/13 0228 94 Nasal 4.0L Cannula 07/13 0200 22 96 Nasal 4.0L Cannula 07/13 0142 97.6 76 22 136/70 86 Nasal 2.5L Cannula 07/13 0108 98.3 85 20 130/69 96 Nasal 3.0L Cannula 07/12 2358 71 24 142/65 94 Nasal 3.0L Cannula 07/12 2238 96.8 65 20 138/67 98 Nasal 2.0L Cannula Intake & Output 07/13 1600 07/13 0800 07/13 0000 Intake Total 800 0 Output Total 800 Balance 0 0 Intake, Blood 600 Product Intake, Oral 200 0 Number 2 Bowel Movements Output, Urine 800 Patient 165 lb 160 lb Weight Last 48 Hrs of Labs/Evan: Laboratory Tests 07/13/16 0850: Urinalysis LIGHT H, Urine Color STRAW, Urine Clarity CLEAR, Urine pH 6.5, Ur Specific Nancy 1.015, Urine Protein 100 H, Urine Ketones NEG, Urine Nitrite NEG, Urine Bilirubin NEG, Urine Urobilinogen 0.2, Ur Leukocyte Esterase NEG, Ur Microscopic SEDIMENT EXAMINED, Urine RBC 1-3, Urine WBC RARE, Ur Epithelial Cells FEW, Urine Hemoglobin SMALL H, Urine Glucose NEG 07/13/16 0504: Troponin I < 0.01, CBC w Diff NO MAN DIFF REQ, RBC 3.30 L, MCV 71.8 L, MCH 22.9 L, RDW 17.6 H, MPV 8.2, Gran % 88.5 H, Lymphocytes % 10.5 L, Monocytes % 0.7 L, Eosinophils % 0.2, Basophils % 0.1, Absolute Granulocytes 4.5, Absolute Lymphocytes 0.5 L, Absolute Monocytes 0 L, Absolute Eosinophils 0, Absolute Basophils 0, PUBS MCHC 31.9 L 07/12/16 2300: Anion Gap 7, Estimated GFR > 60, BUN/Creatinine Ratio 43.8 H, Glucose 100 H, Calcium 8.0 L, Magnesium 1.8, Total Bilirubin 0.5, AST 42 H, ALT 39, Alkaline Phosphatase 152 H, Troponin I 0.01, Ekb-[id number]-Udwhxvbvjtx Pept 1010 H, Total Protein 7.4, Albumin 3.7, Globulin 3.7, Albumin/Globulin Ratio 1.0 L, CBC w Diff NO MAN DIFF REQ, RBC 2.67 L, MCV 68.8 L, MCH 21.8 L, RDW 16.4 H, MPV 8.4, Gran % 65.6, Lymphocytes % 22.4, Monocytes % 8.1, Eosinophils % 3.8, Basophils % 0.1, Absolute Granulocytes 5.0, Absolute Lymphocytes 1.7, Absolute Monocytes 0.6, Absolute Eosinophils 0.3, Absolute Basophils 0, PUBS MCHC 31.6 L , Serum Alcohol < 10.0 Assessment/Plan Impression/Plan: Physical Exam General Appearance Alert, Oriented X3, Cooperative, No Acute Distress Skin No Rashes, No Breakdown HEENT Atraumatic, PERRLA, EOMI Neck Supple, No JVD Cardiovascular Regular Rate, Normal S1, Normal S2, No Murmurs Lungsmild wheezing with poor Air Movement Abdomen No Tenderness, No Hepatospenomegaly, mildly distended with guarding for deep palpation. Hyperactive bowel sounds heard. Neurological Normal Speech, Strength at 5/5 X4 Ext, Normal Tone Extremities No Clubbing, No Cyanosis, No Edema Vascular Pulses Symmetrical SIGNIFICANT DATA Abdominal x-ray showed nonobstructive bowel gas pattern Chest x-ray showed bibasilar atelectasis CT scan done last year showed a 0.4 cm lung nodule mediastinal adenopathy severe emphysema Previous stress test was unremarkable Urine creatinine stable Sodium 128 White count 5.1 Hemoglobin 7.6 which is improved since admission oh hemoglobin of 5.8 Platelets are adequate Previous ABG did not reveal any significant hypercarbia except one time and she was completely lethargic Previous PFTs had shown [id number] obstructive lung disease IMPRESSION This is a 66-year-old lady with moderate COPD with medication noncompliance, previous MRSA infection, current smoker, significant alcohol use, chronic lung disease on oxygen therapy, coronary artery disease, hypertension, atrial fib flutter not on anticoagulation due to previous bleeding, GERD, diverticulosis, hyponatremia due to beer Poto david, diabetes with peripheral neuropathy, previous nephrolithiasis with stent and UTI, breast cancer history, cervical cancer history, celery gland tumor, previous Maldonado's esophagus and hiatal hernia, now comes in with * Severe anemia due to slow GI bleed probably occult blood loss from AV malformation. This is causing most of her shortness of breath. * On and off diarrhea which needs to be investigated GI on board * Significant lung disease on oxygen therapy with no clinical evidence suggestive of acute COPD exacerbation * Significant alcohol dependence with impending DT * Chronic pain medication use * Chronic hyponatremia due to dietary noncompliance and beer ingestion * Depression and anxiety medication noncompliance * Maldonado's esophagus GERD * Previous history of mediastinal lymphadenopathy and a small lung nodule which requires a follow-up CT again in September * Previous history of UTI with stent in the left side which appears to be not an issue at this present time him not sure whether she has had a follow-up for this before. RECOMMENDATION * Continue watching hemoglobin and hematocrit and transfuse * Continue Spiriva and nebulizer therapy around the clock * Reduce her steroids to 20 mg daily * Watch for DTs * Continue her metoprolol * Sputum culture * No need for any antibiotics * Prednisone can be rapidly tapered off * Watch her sodium * Watch for any withdrawal from pain medication therapy * Get a urinary tox screen * If she starts withdrawing from smoking and nicotine patch would be appropriate probably 14 mg * Follow her heart rhythm * Flu swab We will follow closely Consult Acknowledgment - Thank you for your consult request.
--- NOTE | 2016-07-13 13:22 | PN- Att Addend ---
Attending Addendum Attending Brief Note Patient seen and examined. Plan of care discussed with the medical team and the patient. Available lab work and radiology test reports were reviewed. She appears letheragic and complains of moderate difficulty breathing. She denies any nausea vomiting or abdominal pain. She states that she had some upper chest pain with coughing. Denies any fever or chills. Vital Signs Date Time Temp Pulse Resp B/P Pulse O2 O2 Flow FiO2 Ox Delivery Rate 07/13 1208 85 130/68 07/13 0822 97.8 88 20 130/62 94 Nasal 4.0L Cannula 07/13 0816 76 136/70 07/13 0800 Nasal 4.0L Cannula 07/13 0228 94 Nasal 4.0L Cannula 07/13 0200 22 96 Nasal 4.0L Cannula 07/13 0142 97.6 76 22 136/70 86 Nasal 2.5L Cannula 07/13 0108 98.3 85 20 130/69 96 Nasal 3.0L Cannula 07/12 2358 71 24 142/65 94 Nasal 3.0L Cannula 07/12 2238 96.8 65 20 138/67 98 Nasal 2.0L Cannula Intake & Output 07/13 1600 07/13 0800 07/13 0000 Intake Total 800 0 Output Total 800 Balance 0 0 Intake, Blood 600 Product Intake, Oral 200 0 Number 2 Bowel Movements Output, Urine 800 Patient 165 lb 160 lb Weight Exam: General: Patient awake but lethargic and oriented without any distress CVS: S1 plus S2 without any murmur or gallops Chest: Few scattered crepitation without any wheeze. There is no respiratory distress. Abdomen: Soft nontender, bowel sound present, no guarding or rebound NUTRITION AIDE: Awake oriented without any focal neuro deficit and follows command appropriately Extremities: No edema; no clubbing or cyanosis noted Laboratory Tests 07/13 07/13 0850 0504 Chemistry Troponin I (< 0.11 ng/ml) < 0.01 Hematology CBC w Diff NO MAN DIFF REQ WBC (4.8 - 10.8 /CUMM) 5.1 RBC (4.20 - 5.40 /CUMM) 3.30 L Hgb (12.0 - 16.0 G/DL) 7.6 L Hct (37 - 47 %) 23.7 L MCV (81.0 - 99.0 FL) 71.8 L MCH (27.0 - 31.0 PG) 22.9 L RDW (11.5 - 14.5 %) 17.6 H Plt Count (130 - 400 /CUMM) 188 MPV (7.4 - 10.4 FL) 8.2 Gran % (42.2 - 75.2 %) 88.5 H Lymphocytes % (20.5 - 51.1 %) 10.5 L Monocytes % (1.7 - 9.3 %) 0.7 L Eosinophils % (0 - 5 %) 0.2 Basophils % (0.0 - 2.0 %) 0.1 Absolute Granulocytes (1.4 - 6.5 /CUMM) 4.5 Absolute Lymphocytes (1.2 - 3.4 /CUMM) 0.5 L Absolute Monocytes (0.10 - 0.60 /CUMM) 0 L Absolute Eosinophils (0.0 - 0.7 /CUMM) 0 Absolute Basophils (0.0 - 0.2 /CUMM) 0 PUBS MCHC (33.0 - 37.0 G/DL) 31.9 L Urines Urinalysis LIGHT H Urine Color (YEL,AMB,STR) STRAW Urine Clarity (CLEAR) CLEAR Urine pH (5.0 - 8.0) 6.5 Ur Specific [place] (1.001 - 1.035) 1.015 Urine Protein (NEG,<30 MG/DL) 100 H Urine Ketones (NEG) NEG Urine Nitrite (NEG) NEG Urine Bilirubin (NEG) NEG Urine Urobilinogen (0.1 - 1.0 EU/dl) 0.2 Ur Leukocyte Esterase (NEG) NEG Ur Microscopic SEDIMENT EXAMINED Urine RBC (0 - 5 /HPF) 1-3 Urine WBC (0 - 2 /HPF) RARE Ur Epithelial Cells (NONE,FEW) FEW Urine Hemoglobin (NEG) SMALL H Urine Glucose (N MG/DL) NEG 07/12 2300 Chemistry Sodium (137 - 145 mmol/L) 128 L Potassium (3.5 - 5.1 mmol/L) 4.9 Chloride (98 - 107 mmol/L) 95 L Carbon Dioxide (22 - 30 mmol/L) 26 Anion Gap (5 - 16) 7 BUN (7 - 17 mg/dL) 35 H Creatinine (0.5 - 1.0 mg/dL) 0.8 Estimated GFR (>60 ml/min) > 60 BUN/Creatinine Ratio (7 - 25 %) 43.8 H Glucose (65 - 99 mg/dL) 100 H Calcium (8.4 - 10.2 mg/dL) 8.0 L Magnesium (1.6 - 2.3 mg/dL) 1.8 Total Bilirubin (0.2 - 1.3 mg/dL) 0.5 AST (14 - 36 U/L) 42 H ALT (9 - 52 U/L) 39 Alkaline Phosphatase (<127 U/L) 152 H Troponin I (< 0.11 ng/ml) 0.01 [id number] Pept (<125 pg/mL) 1010 H Total Protein (6.3 - 8.2 g/dL) 7.4 Albumin (3.5 - 5.0 g/dL) 3.7 Globulin (1.9 - 4.2 gm/dL) 3.7 Albumin/Globulin Ratio (1.1 - 2.2 %) 1.0 L Hematology CBC w Diff NO MAN DIFF REQ WBC (4.8 - 10.8 /CUMM) 7.6 RBC (4.20 - 5.40 /CUMM) 2.67 L Hgb (12.0 - 16.0 G/DL) 5.8 *L Hct (37 - 47 %) 18.3 *L MCV (81.0 - 99.0 FL) 68.8 L MCH (27.0 - 31.0 PG) 21.8 L RDW (11.5 - 14.5 %) 16.4 H Plt Count (130 - 400 /CUMM) 216 MPV (7.4 - 10.4 FL) 8.4 Gran % (42.2 - 75.2 %) 65.6 Lymphocytes % (20.5 - 51.1 %) 22.4 Monocytes % (1.7 - 9.3 %) 8.1 Eosinophils % (0 - 5 %) 3.8 Basophils % (0.0 - 2.0 %) 0.1 Absolute Granulocytes (1.4 - 6.5 /CUMM) 5.0 Absolute Lymphocytes (1.2 - 3.4 /CUMM) 1.7 Absolute Monocytes (0.10 - 0.60 /CUMM) 0.6 Absolute Eosinophils (0.0 - 0.7 /CUMM) 0.3 Absolute Basophils (0.0 - 0.2 /CUMM) 0 PUBS MCHC (33.0 - 37.0 G/DL) 31.6 L Toxicology Serum Alcohol (<10 MG/DL) < 10.0 Microbiology Date/Time Procedure - Status Source Growth 07/13 1200 Respiratory Culture - ORD LOWER RESP 07/13 1200 Gram Stain - ORD LOWER RESP 07/13 0850 Respiratory Culture - CAN LOWER RESP Cancelled: NUMBER OF SQUAMOUS CELLS INDICATES POOR QUALITY SPECIMEN 07/13 0850 Gram Stain - CAN LOWER RESP Cancelled: NUMBER OF SQUAMOUS CELLS INDICATES POOR QUALITY SPECIMEN Chest x-ray shows Bibasilar subsegmental atelectasis. No dense consolidation. No edema. Assessment * Acute on chronic hypoxic respiratory failure * GI bleed and acute on chronic anemia * Abdominal distention with x-ray showing nonspecific bowel gas pattern * Hyponatremia * History of alcohol abuse * Active smoking Plan * Repeat CBC tomorrow, keep hematocrit above 24 * Continue current medication and decrease steroids as per pulmonology note * GI consult * Up and urine tox screen * Nicotine patch 21 mg daily * Continue CIWA protocol
[2016-07-13 15:52] VITALS: BP 140/78
[2016-07-13 18:18] LABS: ABSOLUTE BASOPHIL COUNT 0 /CUMM (0.0-0.2); ABSOLUTE EOSINOPHIL COUNT 0 /CUMM (0.0-0.7); ABSOLUTE GRANULOCYTE CT 3.5 /CUMM (1.4-6.5); ABSOLUTE LYMPH COUNT 0.7 /CUMM (1.2-3.4); ABSOLUTE MONOCYTE COUNT 0.3 /CUMM (0.10-0.60); BASOPHIL % 0.1 % (0.0-2.0); EOSINOPHIL % 0 % (0-5); GRANULOCYTE % 78.4 % (42.2-75.2); MEAN CORPUSCULAR HGB CONC 32.5 G/DL (33.0-37.0); MEAN PLATELET VOLUME 8.4 FL (7.4-10.4); PLATELET COUNT 173 /CUMM (130-400); RED BLOOD CELL CT 4.09 /CUMM (4.20-5.40); WHITE BLOOD CELL COUNT 4.5 /CUMM (4.8-10.8)
[2016-07-13 18:22] LABS: HEMATOCRIT 31.5 % (37-47); MEAN CORPUSCULAR VOLUME 76.9 FL (81.0-99.0)
[2016-07-14] VITALS (7 sets, daily range): BP systolic 130–160; BP diastolic 70–80
--- NOTE | 2016-07-14 06:48 | PN- Housestaff ---
Subjective Follow-up For: Acute on chronic hypoxic respiratory failure 2/2 acute on chronic anemia/GI bleed Subjective: Patient seen and examiend at bedside this AM. SHe is requesting discharge today. She reports that after receiving the 4 units of blood, her respiratory status is back to baseline and she is no longer dyspneic. Review of Systems Constitutional: Denies: chills, malaise. EENTM: Denies: blurred vision, visual changes. Cardiovascular: Denies: chest pain, palpitations. Respiratory: Reports: cough (Occasional), short of breath (At baseline). Gastrointestinal: Denies: abdominal pain, constipation. Genitourinary: Denies: dysuria. Musculoskeletal: Denies: back pain. Skin: Denies: erythema. Neurological/Psychological: Denies: confusion, headache. Objective Last 24 Hrs of Vital Signs/I&O Vital Signs Date Time Temp Pulse Resp B/P Pulse O2 O2 Flow FiO2 Ox Delivery Rate 07/14 0925 70 138/80 07/14 0918 96 Nasal 3.0L Cannula 07/14 0835 97.9 70 20 138/80 95 Nasal 2.5L Cannula 07/14 0800 Nasal 3.0L Cannula 07/14 0430 98.3 68 20 142/70 97 / 0400 98.3 68 20 142/70 02/06 0030 98.3 76 20 160/76 96 02/06 0000 98.3 76 20 160/76 02/06 0000 96 Nasal 3.0L Cannula 07/13 2154 160/60 / 1600 94 Nasal 3.0L Cannula 07/13 1552 98.0 90 98 140/78 91 Nasal 4.0L Cannula Intake & Output 07/14 1600 /06 0800 02/ 0000 Intake Total 1260 50 500 Output Total 950 600 Balance 310 -550 500 Intake, IV 0 0 Intake, Oral 1260 50 500 Number 0 0 Bowel Movements Output, Urine 950 600 Physical Exam General Appearance: Alert, Oriented X3, Cooperative, No Acute Distress Skin: No Significant Lesion HEENT: Atraumatic, Mucous Membr. moist/pink Neck: Supple, No LAD Cardiovascular: Regular Rate, Normal S1, Normal S2 Lungs: Mild wheezing bilaterally Abdomen: Normal Bowel Sounds, Soft Neurological: Normal Speech, Normal Tone Extremities: No Clubbing Vascular: Pulses Symmetrical Current Medications: Current Medications Sig/Miriam Start time Last Medication Dose Route Stop Time Status Admin Acetaminophen 650 MG Q6P PRN 07/13 1000 AC 07/13 PO 2154 Albuterol Sulfate 3 ML TID 07/13 1600 AC 07/14 INH 1329 Citalopram 10 MG DAILY 07/13 1000 AC 07/14 Hydrobromide PO 0924 Cyanocobalamin 1,000 MCG DAILY 07/13 1000 AC 07/14 PO 0924 Diltiazem HCl 180 MG DAILY 07/13 1000 AC 07/14 PO 0924 Docusate Sodium 100 MG DAILY NEEDED PRN 07/13 0715 AC PO Folic Acid 1 MG DAILY 07/13 1000 AC 07/14 PO 0924 Metoprolol Tartrate 25 MG BID 07/13 1000 AC 07/14 PO 0925 Nicotine 21 MG DAILY 07/13 1340 AC 07/14 TOP 0924 Omeprazole 40 MG DAILY AC 07/13 0700 AC 07/14 PO 0614 Patient Medication 1 ED .STK-MED ONE 07/14 1426 TN Teaching ED 07/14 1427 Polyethylene Glycol 17 GM DAILY PRN 07/13 0715 AC PO Prednisone 20 MG DAILY 07/14 1000 AC 07/14 PO 0924 Pregabalin 50 MG BID 07/13 1000 AC 07/14 PO 0925 Tiotropium [place] 1 PUF DAILY 07/13 1000 AC 07/14 INH 0925 Last 24 Hrs of Lab/Evan Results Last 24 Hrs of Labs/Mics: Laboratory Tests 07/14/16 1236: Anion Gap 10, Estimated GFR > 60, BUN/Creatinine Ratio 31.4 H, Iron 30 L, TIBC 496, Ferritin 8.6 L, CBC w Diff NO MAN DIFF REQ, RBC 4.42, MCV 77.6 L, MCH 24.6 L, RDW 21.0 H, MPV 8.6, Gran % 81.7 H, Lymphocytes % 8.1 L, Monocytes % 10.2 H, Eosinophils % 0, Basophils % 0 L, Absolute Granulocytes 7.8 H, Absolute Lymphocytes 0.8 L, Absolute Monocytes 1.0 H, Absolute Eosinophils 0, Absolute Basophils 0, PUBS MCHC 31.7 L 07/13/16 1723: CBC w Diff NO MAN DIFF REQ, RBC 4.09 L, MCV 76.9 L, MCH 25.0 L, RDW 21.0 H, MPV 8.4, Gran % 78.4 H, Lymphocytes % 14.9 L, Monocytes % 6.6, Eosinophils % 0 , Basophils % 0.1, Absolute Granulocytes 3.5, Absolute Lymphocytes 0.7 L, Absolute Monocytes 0.3, Absolute Eosinophils 0, Absolute Basophils 0, PUBS MCHC 32.5 L 07/13/16 1705: Iron 127, Vitamin B12 969 H, Folate > 20.0 H, TSH 0.350, Free T4 1.19 Orders Radiology Findings: Abdominal XRay: IMPRESSION: Nonobstructive bowel gas pattern. Mild colonic stool burden. Miscellaneous Findings: CXR: IMPRESSION: Bibasilar subsegmental atelectasis. No dense consolidation. No edema. Assessment/Plan Assessment: Ms. Vega is a 66 year old female with PMH tobacco abuse (at least 1 ppd), alcohol abuse (6 beers per day), HTN, atrial flutter, CAD, COPD on 2 L home O2, chronic back pain, history of multiple malignancies (breast cancer, salivary), chronic hyponatremia nephrolithiasis status post left ventricle stent placement who presented to [place] on 07/13/16 with chief complaint of acute onset shortness of breath for 1 week. Patient noted that she has been feeling extremely tired/ fatigued and upon walking a few steps she became extremely short of breath. In the ED: Vital signs showed T 96.8, HR 65, RR 20, BP 138/67 and O2 saturation of 98% on RA. Labs were significant for H&H of 5.8/18.3, platelet count 216, sodium 128 and potassium 4.9. Guiac done in the ED was positive. CXR done in the ED showed bibasilar atelectasis without consolidation. Abdominal Xray showed non-obstructive gas pattern. Patient wad admitted to the general medicine floor and the following is the management: 1. Acute on chronic hypoxic respiratory failure secondary to acute on chronic anemia * Patient admitted and continued on supplemental O2 to keep saturations >92% * Patient s/p 4 U PRBCs and respiratory status much improved * Repeat H&H this AM showed 10.9/34.4, no active signs of bleeding noted * GI consult appreciated, suggested further follow up with them as an outpatient for possible PillCam vs. direct visualization with double-balloon enteroscopy * Patient started on ferrous sulfate, will be discharged home on this medication * Avoid NSAIDs 2. COPD, no acute exacerbation * Pulm consult placed and appreciated * Patient started on steroids and these are being rapidly tapered as patient has no s/s COPDE * Patient currently on 20 mg prednisone daily, will continue to taper * F/U [facility] * Continue TRC nebs as needed * Flu swab negative 3. Abdominal distention * Bowel regimen started, continue daily as needed to prevent constipation 4. Hyponatremia * Likely 2/2 beer potomania * Patient given a 1200 cc fluid restriction, continue 5. Tobacco and alcohol abuse * Smoking cessation initiated * Continue nicotine patch * CIWA scores show no significant alcohol withdrawl * Tox screen negative FULL CODE DVTP: ALPS Mild pain pathway Heart Healthy diet Problem List: 1. Symptomatic anemia 2. Anemia 3. GI bleeding 4. COPD (chronic obstructive pulmonary disease) Pain Ratin Pain Location: n/a Pain Goal: Remain pain free Pain Plan: Mild pain pathway Tomorrow's Labs & Rationales: Discharge today.
[2016-07-14] MEDS ORDERED: PREDNISONE10 M2 PO (09:04)
--- NOTE | 2016-07-14 09:08 | Patient Discharge Instructions ---
See Addendum Discharge Instructions General Discharge Information You were seen/treated for: GI Bleeding requiring blood transfusion COPD Acute respiratory distress Special Instructions: Please follow up with your PCP within 7 days. Please follow up with your rn perinatal Dr. Huntley within 2 weeks of discharge. Please follow up with Dr. Ramsay within 1 week for continued management of your GI bleed and anemia. Please take all medications as directed. Diet Recommended Diet: Heart Healthy Activity Activity Self Limited: Yes Acute Coronary Syndrome Inclusion Criteria At DC or during hospital stay patient has or had the following: ACS DIAGNOSIS No Discharge Core Measures Meds if any: Prescribed or Continued at Discharge Meds if any: NOT Prescribed or Continued at Discharge Congestive Heart Failure Inclusion Criteria At DC or during hospital stay patient has or had the following: CHF DIAGNOSIS No Discharge Core Measures Meds if any: Prescribed or Continued at Discharge Meds if any: NOT Prescribed or Continued at Discharge Cerebrovascular accident Inclusion Criteria At DC or during hospital stay patient has or had the following: CVA/TIA Diagnosis No Discharge Core Measures Meds if any: Prescribed or Continued at Discharge Meds if any: NOT Prescribed or Continued at Discharge Venous thromboembolism Inclusion Criteria VTE Diagnosis No VTE Type NONE VTE Confirmed by (Test) NONE Discharge Core Measures - Per Current guidelines, there needs to be overlap - treatment for the first 5 days of Warfarin therapy. - If discharged on Warfarin prior to 5 days of - overlap therapy, the patient will need to be - assessed for post discharge needs including - *Post discharge parental anticoagulation - *Warfarin and/or parental anticoagulation education - *Follow up date to check INR post discharge At least 5 days overlap therapy as Inpatient No Meds if any: Prescribed or Continued at Discharge Note: Overlap Therapy is Warfarin and Anticoagulant Meds if any: NOT Prescribed or Continued at Discharge
[2016-07-14] MEDS ORDERED: FERROUS SULFAT325 M3 PO (11:12)
[2016-07-14 13:12] LABS: ABSOLUTE EOSINOPHIL COUNT 0 /CUMM (0.0-0.7); HEMATOCRIT 34.3 % (37-47); MEAN PLATELET VOLUME 8.6 FL (7.4-10.4); PLATELET COUNT 189 /CUMM (130-400)
[2016-07-14 13:37] LABS: ABSOLUTE BASOPHIL COUNT 0 /CUMM (0.0-0.2); ABSOLUTE GRANULOCYTE CT 7.8 /CUMM (1.4-6.5); ABSOLUTE LYMPH COUNT 0.8 /CUMM (1.2-3.4); BASOPHIL % 0 % (0.0-2.0); EOSINOPHIL % 0 % (0-5); GRANULOCYTE % 81.7 % (42.2-75.2); MEAN CORPUSCULAR HGB 24.6 PG (27.0-31.0); MEAN CORPUSCULAR HGB CONC 31.7 G/DL (33.0-37.0); MEAN CORPUSCULAR VOLUME 77.6 FL (81.0-99.0); RED BLOOD CELL CT 4.42 /CUMM (4.20-5.40)
[2016-07-14 13:38] LABS: WHITE BLOOD CELL COUNT 9.6 /CUMM (4.8-10.8)
--- NOTE | 2016-07-14 13:41 | Discharge Summary ---
Visit Information Visit Dates Admission Date: 07/12/16 Discharge Date: 07/15/16 Hospital Course Course Attending Physician: LIOR SAENZ MD Primary Care Physician: SUJATA ZUÑIGA MD Consulting Request: 1 Consulting Specialty: Pulmonary Disease Consulting Physician: Dr. Huntley Reason for Consult: Acute on chronic respiratory failure Consulting Request: 2 Consulting Specialty: Gastroenterology Consulting Physician: Dr. Ramsay Reason for Consult: Occult GI bleed with acute on chronic anemia Hospital Course: Ms. Vega is a 66 year old female with PMH tobacco abuse (at least 1 ppd), alcohol abuse (6 beers per day), HTN, atrial flutter, CAD, COPD on 2 L home O2, chronic back pain, history of multiple malignancies (breast cancer, salivary), chronic hyponatremia, nephrolithiasis status post left ureteral stent placement who presented to [place] on 07/13/16 with chief complaint of acute onset shortness of breath for 1 week. Patient noted that she had been feeling extremely tired/ fatigued and upon walking a few steps she became extremely short of breath. On evaluation in the ED: Vital signs showed T 96.8, HR 65, RR 20, BP 138/67 and O2 saturation of 98% on RA. Labs were significant for H&H of 5.8/18.3, platelet count 216, sodium 128 and potassium 4.9. Guiac done in the ED was positive. CXR done in the ED showed bibasilar atelectasis without consolidation. Abdominal Xray showed non-obstructive gas pattern. Physical exam showed: General Appearance Alert, Oriented X3, Cooperative, No Acute Distress Skin No Rashes, No Breakdown HEENT Atraumatic, PERRLA, EOMI Neck Supple, No JVD Cardiovascular Regular Rate, Normal S1, Normal S2, No Murmurs Lungs Clear to Auscultation, Normal Air Movement Abdomen No Tenderness, No Hepatospenomegaly, Mildly distended with guarding to deep palpation. Hyperactive bowel sounds. Neurological Normal Speech, Strength at 5/5 X4 Ext, Normal Tone Extremities No Clubbing, No Cyanosis, No Edema Vascular Pulses Symmetrical Patient wad admitted to the general medicine floor and the following is the management: 1. Acute on chronic hypoxic respiratory failure secondary to acute on chronic anemia: Patient was noted to be severely anemic in the ED as well as guiac positive. She was typed and crossed and given 2 U PRBCs in the emergency room and 2 more units PRBCs while on the floor. CBC was trended every 12 hours. GI consult was placed and suggested that patient had a PillCam in 2006 that showed AVMs, which is likely contributing to her anemia. She also had endoscopy and colonoscopy in March 2015. Endoscopy showed gastric mucosa with IM, mild chronic inflammation and reactive squamous mucosa. Colonoscopy showed a polyp, diverticulosis and incomplete penetration. Dr. Ramsay suggested continued monitoring of her H&H, to avoid NSAIDs, advance diet as tolerated, and start supplemental iron, all of which were done. Patient remained hemodynamically stable with no further drop in her hemoglobin/hematocrit. She was discharged with instructions to follow up with Dr. Ramsay within 2 weeks, as he will consider repeat PillCam vs. double-baloon enteroscopy if her respiratory status allows. Patient was given a prescription for ferrous sulfate on discharge and also told to follow up with her PCP within 1 week of discharge. 2. COPD: There was no evidence of acute exacerbation on admission, however pulmonary consult with Dr. Huntley was placed. Flu swab ordered and found to be negative. Patient was initially placed on steroids and these were rapidly tapered down as no acute exacerbation was evident. TRC neb treatments were ordered. Patient finished rapid taper in the hospital and was told to continue home nebulizers after discharge. She was instructed to follow up with Dr. Huntley within 2 weeks of discharge. 3. Abdominal distension: As evidence by abdominal x-ray, patient had evidence of gas pattern in colon. She was started on an aggressive laxative regimen and distension improved greatly. 4. Hyponatremia: Sodium noted to be 128 on admission. Differential included beer potomania as the culprit for the hyponatremia. Patietnt was placed on a 1200 cc fluid restruction and BEP was trended daily. Sodium level trended up appropriately and no further intervention warrented. 5. Tobacco and alcohol abuse: Patient counseled on smoking cessation. She was started on nicotine patch daily. Patient was also placed on CIWA scoring for alcohol withdrawl without scoring high during her stay. We highly recommended cessation from alcohol. Of note, toxicology screen was done and found to be negative. 6. Code status: FULL 7. DVT Prophylaxis: ALPS Complications: None. Allergies: Coded Allergies: Sulfa (Sulfonamide Antibiotics) (Intermediate, ITCH 11/27/15) penicillin G (ITCH 11/27/15) Significant Procedures: EXAMINATION: XR PORTABLE CHEST CLINICAL INFORMATION: COPD with weakness. Shortness of breath. COMPARISON: Multiple priors, most recently CT from 10/14/2015 TECHNIQUE: Portable AP view of the chest was obtained. FINDINGS: Cardiac leads overlie the chest. The lungs are well expanded. There is bibasilar subsegmental atelectasis. Oligemia of the upper lungs is consistent with known emphysema. No effusion or edema. No pneumothorax. The cardiomediastinal silhouette is unchanged. Chronic deformity of the right upper chest wall. IMPRESSION: Bibasilar subsegmental atelectasis. No dense consolidation. No edema. EXAMINATION: XR ABDOMEN MULTIPLE VIEWS CLINICAL INDICATION: Distention, diarrhea. Mild guarding. COMPARISON: 12/12/2014 TECHNIQUE: 2 views of the abdomen FINDINGS: There is a nonobstructive bowel gas pattern. Gas and stool are seen throughout the colon with stool in the rectum. No free air. Degenerative changes of the spine. The lung bases are clear. IMPRESSION: Nonobstructive bowel gas pattern. Mild colonic stool burden. Disposition Summary Disposition Principal Diagnosis: Acute on chronic hypoxic respiratory failure secondary to acute on chronic anemia Additional Diagnosis: COPD Constipation Hyponatremia Tobacco abuse Alcohol abuse Discharge Disposition: home or self care Discharge Instructions General Discharge Information Code Status: Full Code Patient's Diet: Heart Healthy. Patient's Activity: Self-limited, as tolerated. Follow-Up Instructions/Appts: Please follow up with your PCP within 7 days. Please follow up with your cook chill technician Dr. Huntley within 2 weeks of discharge. Please follow up with Dr. Ramsay within 1 week for continued management of your GI bleed and anemia. Please take all medications as directed. Medications at Discharge Discharge Medications: Continue taking these medications: Folic Acid (Folic Acid) 1 MG TABLET 1 Tablet ORAL DAILY Nitroglycerin (Nitrostat) 0.4 MG TAB.SUBL 1 Tablet SUBLINGUAL As Directed as needed for Angina Instructions: 1st sign of attack; may repeat every 5 minutes until relief; if pain persists after 3 tablets in 15 minutes, prompt medical att Pregabalin (Lyrica) 50 MG CAPSULE 1 Capsule ORAL TWICE DAILY Tiotropium [place] (Spiriva) 18 MCG CAP.W.DEV 1 Capsule Inhale through mouth DAILY Omeprazole (Omeprazole) 40 MG CAPSULE.DR 1 Capsule ORAL DAILY Citalopram Hydrobromide (Celexa) 10 MG TABLET 1 Tablet ORAL DAILY Diltiazem HCl (Diltiazem 24HR Cd) 180 MG CAP.ER.24H 1 Capsule ORAL DAILY Aspirin (Ecotrin*) 81 MG TABLET.DR 1 Tablet ORAL DAILY Cyanocobalamin (Vitamin B-12) 1,000 MCG TABLET 1 Tablet ORAL DAILY Metoprolol Tartrate (Lopressor) 50 MG TABLET 0.5 Tablet ORAL TWICE DAILY Start taking the following new medications: Ferrous Sulfate (Ferrous Sulfate) 325 MG (65 MG IRON) TABLET 1 Tablet ORAL DAILY Qty = 30 No Refills Copies To: ACLIXTO PEARSON,KHALIDA Caceres; ZARA PEARSON,SUJATA; GREGORY PEARSON,MASTER Attending MD Review Statement Documenting Attending: LETTY PEARSON,LIOR Caceres Other Findings: Pt being dced today home and will f/u with GI clinic for anemia workup. D/w pt the care plan.
--- NOTE | 2016-07-14 13:51 | PN- Pulmonary ---
Subjective HPI/Critical Care Issues: Doing well afebrile vss Objective Current Medications: Current Medications Sig/Miriam Start time Last Medication Dose Route Stop Time Status Admin Acetaminophen 650 MG Q6P PRN 07/13 1000 AC 07/13 PO 2154 Albuterol Sulfate 3 ML TID 07/13 1600 AC 07/14 INH 1329 Citalopram 10 MG DAILY 07/13 1000 AC 07/14 Hydrobromide PO 0924 Cyanocobalamin 1,000 MCG DAILY 07/13 1000 AC 07/14 PO 0924 Diltiazem HCl 180 MG DAILY 07/13 1000 AC 07/14 PO 0924 Docusate Sodium 100 MG DAILY NEEDED PRN 07/13 0715 AC PO Folic Acid 1 MG DAILY 07/13 1000 AC 07/14 PO 0924 Metoprolol Tartrate 25 MG BID 07/13 1000 AC 07/14 PO 0925 Nicotine 21 MG DAILY 07/13 1340 AC 07/14 TOP 0924 Omeprazole 40 MG DAILY AC 07/13 0700 AC 07/14 PO 0614 Polyethylene Glycol 17 GM DAILY PRN 07/13 0715 AC PO Prednisone 20 MG DAILY 07/14 1000 AC 07/14 PO 0924 Pregabalin 50 MG BID 07/13 1000 AC 07/14 PO 0925 Tiotropium [place] 1 PUF DAILY 07/13 1000 AC 07/14 INH 0925 Laboratory Tests 07/14 07/13 1236 1723 Chemistry Sodium (137 - 145 mmol/L) 134 L Potassium (3.5 - 5.1 mmol/L) 4.6 Chloride (98 - 107 mmol/L) 96 L Carbon Dioxide (22 - 30 mmol/L) 27 Anion Gap (5 - 16) 10 BUN (7 - 17 mg/dL) 22 H Creatinine (0.5 - 1.0 mg/dL) 0.7 Estimated GFR (>60 ml/min) > 60 BUN/Creatinine Ratio (7 - 25 %) 31.4 H Iron (37 - 170 ug/dL) Pending TIBC (265 - 497 ug/dL) 496 Ferritin (11.1 - 264 ng/mL) Pending Hematology CBC w Diff NO MAN DIFF REQ NO MAN DIFF REQ WBC (4.8 - 10.8 /CUMM) 9.6 4.5 L RBC (4.20 - 5.40 /CUMM) 4.42 4.09 L Hgb (12.0 - 16.0 G/DL) 10.9 L 10.2 L Hct (37 - 47 %) 34.3 L 31.5 L MCV (81.0 - 99.0 FL) 77.6 L 76.9 L MCH (27.0 - 31.0 PG) 24.6 L 25.0 L RDW (11.5 - 14.5 %) 21.0 H 21.0 H Plt Count (130 - 400 /CUMM) 189 173 MPV (7.4 - 10.4 FL) 8.6 8.4 Gran % (42.2 - 75.2 %) 81.7 H 78.4 H Lymphocytes % (20.5 - 51.1 %) 8.1 L 14.9 L Monocytes % (1.7 - 9.3 %) 10.2 H 6.6 Eosinophils % (0 - 5 %) 0 0 Basophils % (0.0 - 2.0 %) 0 L 0.1 Absolute Granulocytes (1.4 - 6.5 /CUMM) 7.8 H 3.5 Absolute Lymphocytes (1.2 - 3.4 /CUMM) 0.8 L 0.7 L Absolute Monocytes (0.10 - 0.60 /CUMM) 1.0 H 0.3 Absolute Eosinophils (0.0 - 0.7 /CUMM) 0 0 Absolute Basophils (0.0 - 0.2 /CUMM) 0 0 PUBS MCHC (33.0 - 37.0 G/DL) 31.7 L 32.5 L 02/05 02/05 1705 0850 Chemistry Iron (37 - 170 ug/dL) 127 Vitamin B12 (239 - 931 pg/mL) 969 H Folate (2.76 - 20.0 ng/mL) > 20.0 H TSH (0.270 - 4.200 uIU/mL) 0.350 Free T4 (0.78 - 2.44 ng/dL) 1.19 Toxicology Urine Opiates Screen (>2000 NG/ML) < 100.00 Methadone Screen (>300 NG/ML) 54 Barbiturate Screen (>200 NG/ML) < 60 Ur Phencyclidine Scrn (>25 NG/ML) < 6.00 Amphetamines Screen (>1000 NG/ML) < 100 U Benzodiazepines Scrn (>200 NG/ML) < 85 Urine Cocaine Screen (>300 NG/ML) < 50 Urine Cannabis Screen (>50 NG/ML) < 5.00 Urines Urinalysis LIGHT H Urine Color (YEL,AMB,STR) STRAW Urine Clarity (CLEAR) CLEAR Urine pH (5.0 - 8.0) 6.5 Ur Specific [place] (1.001 - 1.035) 1.015 Urine Protein (NEG,<30 MG/DL) 100 H Urine Ketones (NEG) NEG Urine Nitrite (NEG) NEG Urine Bilirubin (NEG) NEG Urine Urobilinogen (0.1 - 1.0 EU/dl) 0.2 Ur Leukocyte Esterase (NEG) NEG Ur Microscopic SEDIMENT EXAMINED Urine RBC (0 - 5 /HPF) 1-3 Urine WBC (0 - 2 /HPF) RARE Ur Epithelial Cells (NONE,FEW) FEW Urine Hemoglobin (NEG) SMALL H Urine Glucose (N MG/DL) NEG 07/13 02 0600 0504 Chemistry Sodium (137 - 145 mmol/L) Cancelled 132 L Potassium (3.5 - 5.1 mmol/L) Cancelled 4.6 Chloride (98 - 107 mmol/L) Cancelled 98 Carbon Dioxide (22 - 30 mmol/L) Cancelled 27 Anion Gap (5 - 16) Cancelled 8 BUN (7 - 17 mg/dL) Cancelled 25 H Creatinine (0.5 - 1.0 mg/dL) Cancelled 0.7 Estimated GFR (>60 ml/min) > 60 BUN/Creatinine Ratio (7 - 25 %) Cancelled 35.7 H Iron (37 - 170 ug/dL) Cancelled 69 Troponin I (< 0.11 ng/ml) < 0.01 Vitamin B12 (239 - 931 pg/mL) Cancelled 775 Folate (2.76 - 20.0 ng/mL) Cancelled 20.0 TSH (0.270 - 4.200 uIU/mL) Cancelled 0.673 Free T4 (0.78 - 2.44 ng/dL) Cancelled 1.25 Hematology CBC w Diff NO MAN DIFF REQ WBC (4.8 - 10.8 /CUMM) 5.1 RBC (4.20 - 5.40 /CUMM) 3.30 L Hgb (12.0 - 16.0 G/DL) 7.6 L Hct (37 - 47 %) 23.7 L MCV (81.0 - 99.0 FL) 71.8 L MCH (27.0 - 31.0 PG) 22.9 L RDW (11.5 - 14.5 %) 17.6 H Plt Count (130 - 400 /CUMM) 188 MPV (7.4 - 10.4 FL) 8.2 Gran % (42.2 - 75.2 %) 88.5 H Lymphocytes % (20.5 - 51.1 %) 10.5 L Monocytes % (1.7 - 9.3 %) 0.7 L Eosinophils % (0 - 5 %) 0.2 Basophils % (0.0 - 2.0 %) 0.1 Absolute Granulocytes (1.4 - 6.5 /CUMM) 4.5 Absolute Lymphocytes (1.2 - 3.4 /CUMM) 0.5 L Absolute Monocytes (0.10 - 0.60 /CUMM) 0 L Absolute Eosinophils (0.0 - 0.7 /CUMM) 0 Absolute Basophils (0.0 - 0.2 /CUMM) 0 PUBS MCHC (33.0 - 37.0 G/DL) 31.9 L / 2300 Chemistry Sodium (137 - 145 mmol/L) 128 L Potassium (3.5 - 5.1 mmol/L) 4.9 Chloride (98 - 107 mmol/L) 95 L Carbon Dioxide (22 - 30 mmol/L) 26 Anion Gap (5 - 16) 7 BUN (7 - 17 mg/dL) 35 H Creatinine (0.5 - 1.0 mg/dL) 0.8 Estimated GFR (>60 ml/min) > 60 BUN/Creatinine Ratio (7 - 25 %) 43.8 H Glucose (65 - 99 mg/dL) 100 H Calcium (8.4 - 10.2 mg/dL) 8.0 L Magnesium (1.6 - 2.3 mg/dL) 1.8 Total Bilirubin (0.2 - 1.3 mg/dL) 0.5 AST (14 - 36 U/L) 42 H ALT (9 - 52 U/L) 39 Alkaline Phosphatase (<127 U/L) 152 H Troponin I (< 0.11 ng/ml) 0.01 Uxq-I-Ezolbiyiofi Pept (<125 pg/mL) 1010 H Total Protein (6.3 - 8.2 g/dL) 7.4 Albumin (3.5 - 5.0 g/dL) 3.7 Globulin (1.9 - 4.2 gm/dL) 3.7 Albumin/Globulin Ratio (1.1 - 2.2 %) 1.0 L Hematology CBC w Diff NO MAN DIFF REQ WBC (4.8 - 10.8 /CUMM) 7.6 RBC (4.20 - 5.40 /CUMM) 2.67 L Hgb (12.0 - 16.0 G/DL) 5.8 *L Hct (37 - 47 %) 18.3 *L MCV (81.0 - 99.0 FL) 68.8 L MCH (27.0 - 31.0 PG) 21.8 L RDW (11.5 - 14.5 %) 16.4 H Plt Count (130 - 400 /CUMM) 216 MPV (7.4 - 10.4 FL) 8.4 Gran % (42.2 - 75.2 %) 65.6 Lymphocytes % (20.5 - 51.1 %) 22.4 Monocytes % (1.7 - 9.3 %) 8.1 Eosinophils % (0 - 5 %) 3.8 Basophils % (0.0 - 2.0 %) 0.1 Absolute Granulocytes (1.4 - 6.5 /CUMM) 5.0 Absolute Lymphocytes (1.2 - 3.4 /CUMM) 1.7 Absolute Monocytes (0.10 - 0.60 /CUMM) 0.6 Absolute Eosinophils (0.0 - 0.7 /CUMM) 0.3 Absolute Basophils (0.0 - 0.2 /CUMM) 0 PUBS MCHC (33.0 - 37.0 G/DL) 31.6 L Toxicology Serum Alcohol (<10 MG/DL) < 10.0 Microbiology Date/Time Procedure - Status Source Growth 07/13 1200 Respiratory Culture - COLB LOWER RESP 07/13 1200 Gram Stain - COLB LOWER RESP 07/13 0850 Respiratory Culture - CAN LOWER RESP Cancelled: NUMBER OF SQUAMOUS CELLS INDICATES POOR QUALITY SPECIMEN 07/13 849 Gram Stain - CAN LOWER RESP Cancelled: NUMBER OF SQUAMOUS CELLS INDICATES POOR QUALITY SPECIMEN Vital Signs & I&O Last 24 Hrs of Vitals and I&O: Vital Signs Date Time Temp Pulse Resp B/P Pulse O2 O2 Flow FiO2 Ox Delivery Rate 07/14 924 70 138/80 02/06 0918 96 Nasal 3.0L Cannula 07/14 0835 97.9 70 20 138/80 95 Nasal 2.5L Cannula 07/14 0800 Nasal 3.0L Cannula 07/14 0430 98.3 68 20 142/70 97 02/ 0400 98.3 68 20 142/70 02/ 0030 98.3 76 20 160/76 96 02/ 0000 98.3 76 20 160/76 02 0000 96 Nasal 3.0L Cannula 07/13 2154 160/60 07/13 1600 94 Nasal 3.0L Cannula 07/13 1552 98.0 90 98 140/78 91 Nasal 4.0L Cannula 07/13 1418 Nasal 4.0L Cannula Intake & Output 07/14 1600 07/14 0800 07/14 0000 Intake Total 50 500 Output Total 500 600 Balance -500 -550 500 Intake, IV 0 Intake, Oral 50 500 Number 0 Bowel Movements Output, Urine 500 600 Impression/Plan Impression/Plan Impression/Plan: Physical Exam General Appearance Alert, Oriented X3, Cooperative, No Acute Distress Skin No Rashes, No Breakdown HEENT Atraumatic, PERRLA, EOMI Neck Supple, No JVD Cardiovascular Regular Rate, Normal S1, Normal S2, No Murmurs Lungsmild wheezing with poor Air Movement Abdomen No Tenderness, No Hepatospenomegaly, mildly distended with guarding for deep palpation. Hyperactive bowel sounds heard. Neurological Normal Speech, Strength at 5/5 X4 Ext, Normal Tone Extremities No Clubbing, No Cyanosis, No Edema Vascular Pulses Symmetrical SIGNIFICANT DATA Abdominal x-ray showed nonobstructive bowel gas pattern Chest x-ray showed bibasilar atelectasis CT scan done last year showed a 0.4 cm lung nodule mediastinal adenopathy severe emphysema Previous stress test was unremarkable Urine creatinine stable Sodium 128 White count 5.1 Hemoglobin 7.6 which is improved since admission oh hemoglobin of 5.8 Platelets are adequate Previous ABG did not reveal any significant hypercarbia except one time and she was completely lethargic Previous PFTs had shown [id number] obstructive lung disease IMPRESSION This is a 66-year-old lady with moderate COPD with medication noncompliance, previous MRSA infection, current smoker, significant alcohol use, chronic lung disease on oxygen therapy, coronary artery disease, hypertension, atrial fib flutter not on anticoagulation due to previous bleeding, GERD, diverticulosis, hyponatremia due to beer Poto david, diabetes with peripheral neuropathy, previous nephrolithiasis with stent and UTI, breast cancer history, cervical cancer history, celery gland tumor, previous Maldonado's esophagus and hiatal hernia, now comes in with * Severe anemia due to slow GI bleed probably occult blood loss from AV malformation. This is causing most of her shortness of breath. * On and off diarrhea which needs to be investigated GI on board * Significant lung disease on oxygen therapy with no clinical evidence suggestive of acute COPD exacerbation * Significant alcohol dependence with impending DT * Chronic pain medication use * Chronic hyponatremia due to dietary noncompliance and beer ingestion * Depression and anxiety medication noncompliance * Maldonado's esophagus GERD * Previous history of mediastinal lymphadenopathy and a small lung nodule which requires a follow-up CT again in September * Previous history of UTI with stent in the left side which appears to be not an issue at this present time him not sure whether she has had a follow-up for this before. RECOMMENDATION * Continue Spiriva and nebulizer therapy around the clock * Reduce her steroids to 10 mg daily * Watch for DTs * Continue her metoprolol * Watch her sodium * Watch for any withdrawal from pain medication therapy * Follow her heart rhythm We will follow closely
[2016-07-14] MEDS ORDERED: LOPRESSOR50 M1 PO (15:41)
--- NOTE | 2016-07-14 16:55 | PN- Att Addend ---
Attending MD Review Statement Attending Statement Attending MD Statement: examined this patient, discuss w/resident/PA/PLANT OPERATOR CONTROL ROOM OPERATOR, agreed w/resident/PA/PLANT OPERATOR CONTROL ROOM OPERATOR, reviewed EMR data (avail), discussed w/nursing Attending Assessment/Plan: Anemia- stable. pt received 4 U PRBC. GI workup done in 2014 with EGD and colonoscopy was unrevealing. Will need GI workup as an outpatient. dyspnea resolved. Likely dc today.
--- NOTE | 2016-07-14 18:45 | NUR ---
NSG NOTE: PATIENTS DISCHARGE ORDER PLACED BY MD; THIS RN COMPLETED DISCHARGE PAPER WRK PER PROTOCOL; PER PATIENT, PATIENT STATES SHE DOES NOT HAVE A RIDE HOME TONIGHT AND DOES NOT HAVE THE PROPER MEANS TO GET INTO HER HOME; MD AWARE; APARTMENT GROUNDSKEEPER AGA NOTIFIED; ELECTRONIC IMAGER JESSA BARRAGAN AWARE; DISCHARGE ORDER CANCELLED FOR 07/14/16 BY MD;
--- NOTE | 2016-07-15 07:00 | PN- Housestaff ---
See Addendum Subjective Follow-up For: Acute on chronic respiratory failure secondary to acute on chronic anemia COPD Subjective: Patient seen and examimed at bedside this AM. She reports she feels well and has noted no signs of bleeding. Patient is aware she will be discharged today and will have a ride (Unable to be discharged yesterday as she did not have her house keys). Review of Systems Constitutional: Denies: chills, fever. EENTM: Denies: blurred vision, nasal congestion. Cardiovascular: Denies: chest pain, palpitations, peripheral edema. Respiratory: Denies: cough, short of breath. Gastrointestinal: Denies: abdominal pain. Genitourinary: Denies: dysuria. Musculoskeletal: Denies: back pain. Skin: Denies: lesions. Neurological/Psychological: Denies: confusion. Hematologic/Endocrine: Denies: bleeding. Objective Last 24 Hrs of Vital Signs/I&O Vital Signs Date Time Temp Pulse Resp B/P Pulse O2 O2 Flow FiO2 Ox Delivery Rate 07/15 0000 Nasal 2.0L Cannula 07/14 2358 97.6 60 20 134/70 93 Room Air 07/14 2103 71 122/64 07/14 1854 94 Nasal 2.0L Cannula 07/14 1625 99.6 66 20 130/70 92 07/14 1600 Nasal 3.0L Cannula 07/14 0925 70 138/80 07/14 0918 96 Nasal 3.0L Cannula 07/14 0835 97.9 70 20 138/80 95 Nasal 2.5L Cannula Intake & Output 07/15 1600 07/15 0800 07/15 0000 Intake Total Output Total 800 300 Balance -800 -300 Output, Urine 800 300 Physical Exam General Appearance: Alert, Oriented X3, Cooperative, No Acute Distress Skin: No Significant Lesion HEENT: Atraumatic, PERRLA, Mucous Membr. moist/pink Neck: Supple Cardiovascular: Regular Rate, Normal S1, Normal S2 Lungs: Clear to Auscultation, Normal Air Movement Abdomen: Normal Bowel Sounds, Soft, No Tenderness, No Hepatospenomegaly Neurological: Normal Speech, Normal Tone Extremities: No Clubbing, No Cyanosis, No Edema Vascular: Pulses Symmetrical Current Medications: Current Medications Sig/Miriam Start time Last Medication Dose Route Stop Time Status Admin Acetaminophen 650 MG Q6P PRN 07/13 1000 AC 07/13 PO 2154 Albuterol Sulfate 3 ML TID 07/13 1600 AC 07/14 INH 1851 Citalopram 10 MG DAILY 07/13 1000 AC 07/14 Hydrobromide PO 0924 Cyanocobalamin 1,000 MCG DAILY 07/13 1000 AC 07/14 PO 0924 Diltiazem HCl 180 MG DAILY 07/13 1000 AC 07/14 PO 0924 Docusate Sodium 100 MG DAILY NEEDED PRN 07/13 0715 AC PO Folic Acid 1 MG DAILY 07/13 1000 AC 07/14 PO 0924 Metoprolol Tartrate 25 MG BID 07/13 1000 AC 07/14 PO 2103 Nicotine 21 MG DAILY 07/13 1340 AC 07/14 TOP 0924 Omeprazole 40 MG DAILY AC 07/13 0700 AC 07/15 PO 0622 Patient Medication 1 ED .STK-MED ONE 07/14 1426 NV Teaching ED 07/14 1427 Polyethylene Glycol 17 GM DAILY PRN 07/13 0715 AC PO Prednisone 10 MG DAILY 07/15 1000 AC PO Prednisone 20 MG DAILY 07/14 1000 DC 07/14 PO 0924 Pregabalin 50 MG BID 07/13 1000 AC 07/14 PO 2103 Tiotropium [place] 1 PUF DAILY 07/13 1000 AC 07/14 INH 0925 Last 24 Hrs of Lab/Evan Results Last 24 Hrs of Labs/Mics: Laboratory Tests 07/14/16 1236: Anion Gap 10, Estimated GFR > 60, BUN/Creatinine Ratio 31.4 H, Iron 30 L, TIBC 496, Ferritin 8.6 L, CBC w Diff NO MAN DIFF REQ, RBC 4.42, MCV 77.6 L, MCH 24.6 L, RDW 21.0 H, MPV 8.6, Gran % 81.7 H, Lymphocytes % 8.1 L, Monocytes % 10.2 H, Eosinophils % 0, Basophils % 0 L, Absolute Granulocytes 7.8 H, Absolute Lymphocytes 0.8 L, Absolute Monocytes 1.0 H, Absolute Eosinophils 0, Absolute Basophils 0, PUBS MCHC 31.7 L Assessment/Plan Assessment: Ms. Vega is a 66 year old female with PMH tobacco abuse (at least 1 ppd), alcohol abuse (6 beers per day), HTN, atrial flutter, CAD, COPD on 2 L home O2, chronic back pain, history of multiple malignancies (breast cancer, salivary), chronic hyponatremia nephrolithiasis status post left ventricle stent placement who presented to [facility] on 07/13/16 with chief complaint of acute onset shortness of breath for 1 week. Patient noted that she has been feeling extremely tired/ fatigued and upon walking a few steps she became extremely short of breath. In the ED: Vital signs showed T 96.8, HR 65, RR 20, BP 138/67 and O2 saturation of 98% on RA. Labs were significant for H&H of 5.8/18.3, platelet count 216, sodium 128 and potassium 4.9. Guiac done in the ED was positive. CXR done in the ED showed bibasilar atelectasis without consolidation. Abdominal Xray showed non-obstructive gas pattern. Patient wad admitted to the general medicine floor and the following is the management: 1. Acute on chronic hypoxic respiratory failure secondary to acute on chronic anemia * Patient admitted and continued on supplemental O2 to keep saturations >92% * Patient s/p 4 U PRBCs and respiratory status much improved * Repeat H&H yesterday AM showed 10.9/34.4, no active signs of bleeding noted * GI consult appreciated, suggested further follow up with them as an outpatient for possible PillCam vs. direct visualization with double-balloon enteroscopy * Patient started on ferrous sulfate, will be discharged home on this medication * Avoid NSAIDs * Patient will have repeat CBC in about 1 week and results sent to Dr. Ramsay and PCP * Respiratory status back to baseline, patient will continue home O2 at night and as needed 2. COPD, no acute exacerbation * Pulm consult placed and appreciated * Patient started on steroids and these are being rapidly tapered as patient has no s/s COPDE * Patient currently on 10 mg prednisone daily, will complete taper today and not require further steroids upon discharge * Continue TRC nebs as needed * Flu swab negative * Patient to follow up with her deckhand crab boat within 2 weeks of discharge 3. Abdominal distention * Bowel regimen started, continue daily as needed to prevent constipation 4. Hyponatremia * Likely 2/2 beer potomania * Patient given a 1200 cc fluid restriction, continue * Na level 134, no need to continue to trend 5. Tobacco and alcohol abuse * Smoking cessation counseling initiated * Continue nicotine patch * CIWA scores show no significant alcohol withdrawl (max of 0 in last 24 hours) * Tox screen negative FULL CODE DVTP: ALPS Mild pain pathway Heart Healthy diet Problem List: 1. Symptomatic anemia 2. Upper GI bleeding 3. COPD (chronic obstructive pulmonary disease) 4. Tobacco abuse 5. Atrial flutter Pain Ratin Pain Location: n/a Pain Goal: Remain pain free Pain Plan: Mild pain pathway. Tomorrow's Labs & Rationales: None. F/U CBC in 1 week. Consulting Request: Consulting Specialty: Gastroenterology Consulting Physician: Dr. Ramsay Reason for Consult: Occult GI bleed with acute on chronic anemia
[2016-07-15 08:46] VITALS: BP 122/74
--- NOTE | 2016-07-15 10:15 | NUR ---
NURSING NOTE: UNABLE TO FINALIZE CMR; ALL SECTIONS PRINTED, IT AWARE. PT SIGNED A COPY. SUCARRILLOVISIOR AWARE
--- NOTE | 2016-07-15 12:43 | PN- Pulmonary ---
Subjective HPI/Critical Care Issues: Doing well being dcd fatigue Objective Current Medications: Current Medications Sig/Miriam Start time Last Medication Dose Route Stop Time Status Admin Acetaminophen 650 MG Q6P PRN 07/13 1000 DCD 02 PO 2154 Albuterol Sulfate 3 ML TID 07/13 1600 DCD 07/15 INH 0916 Citalopram 10 MG DAILY 07/13 1000 DCD 07/15 Hydrobromide PO 0944 Cyanocobalamin 1,000 MCG DAILY 07/13 1000 DCD 07/15 PO 0944 Diltiazem HCl 180 MG DAILY 07/13 1000 DCD 07/15 PO 0944 Docusate Sodium 100 MG DAILY NEEDED PRN 07/13 0715 DCD PO Folic Acid 1 MG DAILY 07/13 1000 DCD 07/15 PO 0944 Metoprolol Tartrate 25 MG BID 07/13 1000 DCD 07/15 PO 0944 Nicotine 21 MG DAILY 07/13 1340 DCD 07/15 TOP 0943 Omeprazole 40 MG DAILY AC 07/13 0700 DCD 07/15 PO 0622 Patient Medication 1 ED .ST-MED ONE 07/[address] Teaching ED 07/14 1427 Polyethylene Glycol 17 GM DAILY PRN 07/13 0715 DCD PO Prednisone 10 MG DAILY 07/15 1000 DCD 07/15 PO 0944 Prednisone 20 MG DAILY 07/14 1000 DC 07/14 PO 0924 Pregabalin 50 MG BID 07/13 1000 DCD 07/15 PO 0947 Tiotropium [place] 1 PUF DAILY 07/13 1000 DCD 07/15 INH 0944 Vital Signs & I&O Last 24 Hrs of Vitals and I&O: Vital Signs Date Time Temp Pulse Resp B/P Pulse O2 O2 Flow FiO2 Ox Delivery Rate 07/15 0919 90 Room Air Room Air 07/15 0846 97.9 60 20 122/74 90 Room Air 07/15 0800 91 Room Air 07/15 0000 Nasal 2.0L Cannula 07/14 2358 97.6 60 20 134/70 93 Room Air 07/14 2103 71 122/64 07/14 1854 94 Nasal 2.0L Cannula 07/14 1625 99.6 66 20 130/70 92 07/14 1600 Nasal 3.0L Cannula Intake & Output 07/15 1600 07/15 0800 02/ 0000 Intake Total Output Total 800 300 Balance -800 -300 Output, Urine 800 300 Laboratory Tests 07/14 02/05 1236 1723 Chemistry Sodium (137 - 145 mmol/L) 134 L Potassium (3.5 - 5.1 mmol/L) 4.6 Chloride (98 - 107 mmol/L) 96 L Carbon Dioxide (22 - 30 mmol/L) 27 Anion Gap (5 - 16) 10 BUN (7 - 17 mg/dL) 22 H Creatinine (0.5 - 1.0 mg/dL) 0.7 Estimated GFR (>60 ml/min) > 60 BUN/Creatinine Ratio (7 - 25 %) 31.4 H Iron (37 - 170 ug/dL) 30 L TIBC (265 - 497 ug/dL) 496 Ferritin (11.1 - 264 ng/mL) 8.6 L Hematology CBC w Diff NO MAN DIFF REQ NO MAN DIFF REQ WBC (4.8 - 10.8 /CUMM) 9.6 4.5 L RBC (4.20 - 5.40 /CUMM) 4.42 4.09 L Hgb (12.0 - 16.0 G/DL) 10.9 L 10.2 L Hct (37 - 47 %) 34.3 L 31.5 L MCV (81.0 - 99.0 FL) 77.6 L 76.9 L MCH (27.0 - 31.0 PG) 24.6 L 25.0 L RDW (11.5 - 14.5 %) 21.0 H 21.0 H Plt Count (130 - 400 /CUMM) 189 173 MPV (7.4 - 10.4 FL) 8.6 8.4 Gran % (42.2 - 75.2 %) 81.7 H 78.4 H Lymphocytes % (20.5 - 51.1 %) 8.1 L 14.9 L Monocytes % (1.7 - 9.3 %) 10.2 H 6.6 Eosinophils % (0 - 5 %) 0 0 Basophils % (0.0 - 2.0 %) 0 L 0.1 Absolute Granulocytes (1.4 - 6.5 /CUMM) 7.8 H 3.5 Absolute Lymphocytes (1.2 - 3.4 /CUMM) 0.8 L 0.7 L Absolute Monocytes (0.10 - 0.60 /CUMM) 1.0 H 0.3 Absolute Eosinophils (0.0 - 0.7 /CUMM) 0 0 Absolute Basophils (0.0 - 0.2 /CUMM) 0 0 PUBS MCHC (33.0 - 37.0 G/DL) 31.7 L 32.5 L 07/13 1705 Chemistry Iron (37 - 170 ug/dL) 127 Vitamin B12 (239 - 931 pg/mL) 969 H Folate (2.76 - 20.0 ng/mL) > 20.0 H TSH (0.270 - 4.200 uIU/mL) 0.350 Free T4 (0.78 - 2.44 ng/dL) 1.19 Microbiology Date/Time Procedure - Status Source Growth 07/13 1200 Respiratory Culture - CAN LOWER RESP Cancelled: SPECIMEN NOT RECEIVED IN LABORATORY 07/13 1200 Gram Stain - CAN LOWER RESP Cancelled: SPECIMEN NOT RECEIVED IN LABORATORY 07/13 0850 Respiratory Culture - CAN LOWER RESP Cancelled: NUMBER OF SQUAMOUS CELLS INDICATES POOR QUALITY SPECIMEN 07/13 0850 Gram Stain - CAN LOWER RESP Cancelled: NUMBER OF SQUAMOUS CELLS INDICATES POOR QUALITY SPECIMEN Impression/Plan Impression/Plan Impression/Plan: Physical Exam General Appearance Alert, Oriented X3, Cooperative, No Acute Distress Skin No Rashes, No Breakdown HEENT Atraumatic, PERRLA, EOMI Neck Supple, No JVD Cardiovascular Regular Rate, Normal S1, Normal S2, No Murmurs Lungsmild wheezing with poor Air Movement Abdomen No Tenderness, No Hepatospenomegaly, mildly distended with guarding for deep palpation. Hyperactive bowel sounds heard. Neurological Normal Speech, Strength at 5/5 X4 Ext, Normal Tone Extremities No Clubbing, No Cyanosis, No Edema Vascular Pulses Symmetrical Hemoglobin stable IMPRESSION This is a 66-year-old lady with moderate COPD with medication noncompliance, previous MRSA infection, current smoker, significant alcohol use, chronic lung disease on oxygen therapy, coronary artery disease, hypertension, atrial fib flutter not on anticoagulation due to previous bleeding, GERD, diverticulosis, hyponatremia due to beer Poto david, diabetes with peripheral neuropathy, previous nephrolithiasis with stent and UTI, breast cancer history, cervical cancer history, celery gland tumor, previous Maldonado's esophagus and hiatal hernia, now comes in with * Resolved Severe anemia due to slow GI bleed probably occult blood loss from AV malformation. * On and off diarrhea which needs to be investigated GI on board * Significant lung disease on oxygen therapy with no clinical evidence suggestive of acute COPD exacerbation * Significant alcohol dependence with impending DT * Chronic pain medication use * Chronic hyponatremia due to dietary noncompliance and beer ingestion * Depression and anxiety medication noncompliance * Maldonado's esophagus GERD * Previous history of mediastinal lymphadenopathy and a small lung nodule which requires a follow-up CT again in September * Previous history of UTI with stent in the left side which appears to be not an issue at this present time him not sure whether she has had a follow-up for this before. RECOMMENDATION * Continue Spiriva and nebulizer therapy around the clock * Dc steroids slowly Ok to dc will follow as out pt We will follow closely
== END 2016-07-15 10:16 | DRG 811 ==
LOC: ENRESERVTM → ENRESERVDT → ERH 22:33 → 2NB 23:54 → ERHI 23:54 → DELPENDDIS 23:54 → ENPENDDIS 23:54 → 2NB 07-13 01:08
PROVIDERS: Emergency Medicine; Internal Medicine; Student in an Organized Health Care Education/Training Program; ADMIT Student in an Organized Health Care Education/Training Program
PROC: 30233N1 Transfusion of Nonautologous Red Blood Cells into Peripheral Vein, Percutaneous Approach (ICD-10-PCS; principal; 2016-07-13)
DX: D62 Acute posthemorrhagic anemia (principal); J96.21 Acute and chronic respiratory failure with hypoxia; K55.21 Angiodysplasia of colon with hemorrhage; E11.42 Type 2 diabetes mellitus with diabetic polyneuropathy; E87.1 Hypo-osmolality and hyponatremia; I48.2 Chronic atrial fibrillation; I48.92 Unspecified atrial flutter; J44.9 Chronic obstructive pulmonary disease, unspecified; I25.10 Atherosclerotic heart disease of native coronary artery without angina pectoris; I10 Essential (primary) hypertension; K21.9 Gastro-esophageal reflux disease without esophagitis; Z85.3 Personal history of malignant neoplasm of breast; Z85.41 Personal history of malignant neoplasm of cervix uteri; F17.210 Nicotine dependence, cigarettes, uncomplicated; F10.20 Alcohol dependence, uncomplicated; Z99.81 Dependence on supplemental oxygen; D50.0 Iron deficiency anemia secondary to blood loss (chronic)
CPT/HCPCS: ERO; 74020; 80307; 81001; 82436; 86920; 87070; 87804; 87804-59; 93005; 93010; 96374; G0480; J2930; J3490; J7060; J7512; P9016

== ENCOUNTER 2016-12-23 09:11 | Emergency (ER) | payer OTHER, MEDICARE ==
[~2016-12-23] VITALS: Ht 165.1 cm; Wt 81.6 kg
[~2016-12-23 09:11] MED LIST changes: +FERROUS SULFAT325 M3 PO; +LOPRESSOR50 M1 PO; +PREDNISONE10 M2 PO
--- NOTE | 2016-12-23 11:02 | ED GENERAL ADULT ---
History of Present Illness General Chief Complaint: General Adult Stated Complaint: PER PT"ATTACKS WHERE I LOOSE ALL BODY FUNCTION" Source: patient Exam Limitations: no limitations Vital Signs & Intake/Output Vital Signs & Intake/Output Vital Signs Date Time Temp Pulse Resp B/P B/P Pulse O2 O2 Flow FiO2 Mean Ox Delivery Rate 12/23 1527 99 24 177/85 94 Nasal 2.0L Cannula 12/23 1318 96.4 88 18 124/78 94 Nasal 2.0L Cannula 12/23 1139 93 18 117/79 95 Nasal 2.0L Cannula 12/23 0923 98.1 101 20 111/73 93 Allergies Coded Allergies: Sulfa (Sulfonamide Antibiotics) (Intermediate, ITCH 11/27/15) penicillin G (ITCH 11/27/15) Reconcile Medications Aspirin (Ecotrin*) 81 MG TABLET.DR 1 TAB PO DAILY Supplement (Reported) Citalopram Hydrobromide (Celexa) 10 MG TABLET 1 TAB PO DAILY Mental health ( Reported) Cyanocobalamin (Vitamin B-12) 1,000 MCG TABLET 1 TAB PO DAILY Supplement ( Reported) Diltiazem HCl (Diltiazem 24HR Cd) 180 MG CAP.ER.24H 1 CAP PO DAILY HTN ( Reported) Ferrous Sulfate 325 MG (65 MG IRON) TABLET 1 TAB PO DAILY SUPPLEMENT ( Reported) Folic Acid 1 MG TABLET 1 TAB PO DAILY Supplement (Reported) Metoprolol Tartrate (Lopressor) 50 MG TABLET 0.5 TAB PO BID heart (Reported) Nitroglycerin (Nitrostat) 0.4 MG TAB.SUBL 1 TAB SL AD PRN Angina (Reported) 1st sign of attack; may repeat every 5 minutes until relief; if pain persists after 3 tablets in 15 minutes, prompt medical att Omeprazole 40 MG CAPSULE.DR 1 CAP PO DAILY GERD (Reported) Pregabalin (Lyrica) 50 MG CAPSULE 1 CAP PO BID Peripheral neuropathy ( Reported) Tiotropium [place] (Spiriva) 18 MCG CAP.W.DEV 1 CAP INH DAILY COPD (Reported) Triage Note: FEELING LIGHT HEADED AND WOOZY. MRI DONE LAST WEEK, AND READ NORMAL. HAS TWO MONTH HISTORY OF LOSS OF CONTROL OF BODY AND SPEECH. SEEN BY NEUROLOGIST AND INTERNET SALES MANAGER WITH NO DIAGNOSIS. PMG OF COPD Triage Nurses Notes Reviewed? 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 Patient has been evaluated by her regulatory affairs specialist and her neurologist Dr. Boss and Dr. Cosby in which she states that an episode occurred in Dr. Cosby's office in which patient has received MRI of the head and CT scan of the chest as dictated below is the results. PATIENT: LUIZA MONTANEZ PRESENT AGE: 66 PATIENT ACCOUNT NO: [id number] : 48 LOCATION: MRI ORDERING PHYSICIAN: DEE LANE MD SERVICE DATE: 12/01/16 EXAM TYPE: MRI - MRI-HEAD W/O KAITLYN EXAMINATION: MR BRAIN WITHOUT CONTRAST CLINICAL INFORMATION: 66-year-old woman with recent onset of tremors. COMPARISON: 02/26/[address], 02/20/2014 brain MRI TECHNIQUE: MRI of the brain without contrast was obtained using routine sequences. FINDINGS: Patchy and punctate T2 hyperintense signal is seen throughout the supratentorial and pontine white matter, a nonspecific finding that is similar to the prior study and most likely secondary to moderate chronic microvascular ischemic changes. The ventricles and sulcal spaces are mildly prominent suggesting chronic volume loss. No focal reduced diffusion is seen to suggest acute or subacute cerebral ischemia. No intracranial mass, intracerebral edema, intra-axial blood products, midline shift, or extra-axial collection is visualized. Normal arterial and venous vascular flow voids are present. Mild mucosal thickening is noted in the ethmoid air cells. IMPRESSION: Motion degraded study again demonstrates moderate presumed chronic small vessel ischemic changes and volume loss. DICTATED BY: YUMIKO GLYNN MD DATE/TIME DICTATED:12/01/161700 LAMP SHADE SEWER:TA DATE/TIME TRANSCRIBED:12/01/161700 CONFIDENTIAL, DO NOT COPY WITHOUT APPROPRIATE AUTHORIZATION. PATIENT: LUIZA MONTANEZ PRESENT AGE: 66 PATIENT ACCOUNT NO: [id number] : 48 LOCATION: XRY ORDERING PHYSICIAN: KHALIDA DE LUNA MD SERVICE DATE: 12/21/16- EXAM TYPE: CAT - CT CHEST WO IV CONTRAST EXAMINATION: CT CHEST WITHOUT CONTRAST CLINICAL INFORMATION: Lung nodule. COMPARISON: CT scan of the chest dated 10/14/2015, 10/04/2015, 02/28/2015, and 10/13/2014. TECHNIQUE: Multidetector volumetric CT imaging of the chest was obtained noncontrast. Sagittal and coronal reformations were obtained. DLP: 379.42 mGy-cm. FINDINGS: LUNGS: Moderate centrilobular and mild paraseptal emphysema again seen with biapical pleural-based reticular nodular opacities noted, consistent with scarring. There are multiple tiny 0.2 to 0.3 cm solid and groundglass opacity noncalcified nodules seen in the periphery of both lungs, unchanged from 10/14/2015. Several of the nodules were also seen on older exams though are less well visualized due to more extensive lung parenchymal groundglass opacities and consolidation seen previously obscuring assessment. No suspicious new or enlarging pulmonary nodule is seen. The central airways are patent and diffusely thickened. No pleural effusion or significant pleural thickening is seen. No evidence of interstitial fibrosis. VASCULAR STRUCTURES: Aortic and heart size normal. 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 Moderate atherosclerotic calcifications of the aorta and great vessels and severe three-vessel coronary artery calcifications noted. Prominent lipomatous infiltration of the intra-atrial septum again seen. No pericardial effusion. LYMPHATIC STRUCTURES: A right lower paratracheal lymph node is now smaller, measuring 1.3 cm in short axis as compared to 2 cm previously. Large subcarinal node is again noted, somewhat difficult to differentiate from the adjacent decompressed esophagus, measuring approximately 1.2 cm in short axis as compared to 2.0 cm previously. Additional smaller lymph node is seen in the subcarinal space, measuring 1.2 cm in short axis, previously blending in with the larger subcarinal lymph node mass. No significant axillary adenopathy is seen. No upper abdominal adenopathy is seen. A few scattered periportal lymph nodes are noted, measuring less than 1 cm in short axis, similar to the previous exam. THYROID GLAND: Again seen is a 2.7 x 2.1 cm cystic mass in the left lobe of the thyroid gland, incompletely included, similar to prior exam UPPER ABDOMEN: There is a small retrocardiac hiatal hernia. Slight hypertrophy of both adrenal glands is again seen, unchanged dating back to these 10/13/2014, consistent with adrenal hypertrophy. Subcapsular 2.7 x 2.5 cm segment 4 a cyst again seen, unchanged. 2.5 x 2.8 cm upper pole left renal cyst is noted, increased in size compared to 1.8 x 2.0 cm previously. Included portions of the solid organs in the upper abdomen otherwise unremarkable on noncontrast exam. BONES: Old healed right midclavicular fracture is partially included. Several right anterolateral old rib fractures are also seen. No suspicious focal findings. IMPRESSION: 1. Moderate emphysema with multiple stable bilateral 0.2 to 0.3 cm pulmonary nodules again seen. Given the stability since 10/14/2015, a benign etiology is favored. As per the Fleischner criteria, no additional follow-up is required. 2. No new or enlarging suspicious pulmonary nodules seen. 3. Interval decrease in size of mediastinal adenopathy. 4. 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 Interval slight increase in size of left renal cyst noted. DICTATED BY: FAVIAN BEACH MD. DATE/TIME DICTATED:12/22/16736 LAMP SHADE SEWER:TA PATIENT: LUIZA MONTANEZ PRESENT AGE: 66 PATIENT ACCOUNT NO: [id number] : 48 LOCATION: XRY ORDERING PHYSICIAN: KHALIDA DE LUNA MD SERVICE DATE: 12/21/16- Last episode of tremulousness entire body shaking activity was yesterday and which occurred 3 times however patient does not lose consciousness and remembers the entire activity and the also is present states that in a standing position she just "shakes" for approximately 30 seconds. No bowel or bladder incontinence or tongue biting occurs. Patient also states that today 3 hours prior to arrival he she had chest pressure sensations which was relieved with one dose of nitroglycerin. Patient currently states that she just feels tired. Patient is an every day smoker Patient currently denies any fever chills blurred vision headache neck pain neck stiffness arm pain jaw pain nausea vomiting. Last bowel movement was today no blood and no melena noted Last alcoholic beverage was yesterday and which she states she drank 1 beer. Denies any illicit drug use. Patient does state that her antihypertensive medications and COPD medications were altered recently because of her symptoms however no specific findings are known at this time from her outpatient providers for her symptoms present today (ROXIE ASHBY) Past History Travel History Traveled to [place] past 21 day No Medical History Any Pertinent Medical History? see below for history Neurological: NONE EENT: NONE Cardiovascular: aflutter, CAD, hypertension, AFIB/FLUTTER Respiratory: COPD Gastrointestinal: peptic ulcer disease, GERD, barretts, SB pill cam in 2007 showed non-bleeding AVMs Hepatic: NONE Renal: KIDNEY STONES ESWL, RENAL STENT PLACEME Musculoskeletal: DEGENERATIVE DISC ARTHRITIS PELVIC FX Psychiatric: alcohol dependence, depression Endocrine: diabetes Blood Disorders: NONE Cancer(s): breast cancer (1997 no chemotherapy ), cervical cancer (), salviary gland tumor CASH CONTROL SPECIALIST/Reproductive: NONE History of MRSA: Yes History of VRE: No History of CDIFF: No Influenza Vaccine: 03/08/16 Surgical History Surgical History: BREAST LUMPECTOMY HYSTERECTOMY Psychosocial History Who do you live with Significant Other Services at Home None What is your primary language [place] Family History Family History, If Any: MOTHER FH: kidney cancer FH: skin cancer BROTHER FH: lung cancer FHx: heart disease FATHER FH: diabetes mellitus Hx Contributory? No (ORXIE ASHBY) Review of Systems Review of Systems Constitutional: Reports: see HPI, weakness. EENTM: Reports: no symptoms. Respiratory: Reports: no symptoms. Cardiovascular: Reports: see HPI, chest pain. GI: Reports: no symptoms. Genitourinary: Reports: no symptoms. Musculoskeletal: Reports: no symptoms. Skin: Reports: no symptoms. Neurological/Psychological: Reports: see HPI. Hematologic/Endocrine: Reports: no symptoms. Immunologic/Allergic: Reports: no symptoms. All Other Systems: Reviewed and Negative (ROXIE ASHBY) Physical Exam Physical Exam General Appearance: no apparent distress, alert, comfortable Comments: Well-developed well-nourished person in no acute distress HEENT: Normal EENT exam, extraocular motion intact, no nystagmus. Pupils equally round and reactive to light and accommodation. Nose is atraumatic. External auditory canal and Tympanic membranes clear. Pharynx normal. No swelling or edema. Neck: Supple, no lymphadenopathy, normal range of motion without pain or tenderness Back: Nontender, no CVA tenderness. Full range of motion Cardiovascular: Regular rate and rhythms no murmurs rubs or gallops, normal JVP Respiratory: Chest nontender. No respiratory distress.breath sounds clear to auscultation bilaterally Abdomen: Soft, nontender nondistended, no appreciable organomegaly. Normal bowel sounds. No ascites Extremity: No edema, no calf tenderness to palpation, normal and equal pulses. Neuro: Alert oriented x3, motor sensory normal, cranial nerves II through XII grossly intact. Skin: No appreciable rash on exposed skin, skin is warm and dry. Psych: Mood and affect is normal, memory and judgment is normal. Core Measures ACS in differential dx? Yes CVA/TIA Diagnosis: No Severe Sepsis Present: No Septic Shock Present: No (DOMINICK VALLEJO,ROXIE) Progress Differential Diagnoses I considered the following diagnoses in my evaluation of the patient: [Seizure, myocardial infarction, pulmonary embolism, alcohol withdrawal, polysubstance abuse, electrolyte abnormality, anemia,] Plan of Care: Orders Procedure Date/time Status TROPONIN LEVEL 12/23 1530 Complete EKG 12/23 1530 Active Add-on Test (ER Only) 12/23 1208 Active THYROID STIMULATING HORMONE 12/23 1133 Complete THYROXINE 12/23 1133 Complete Telemetry/Global Director Air And Climate Change 12/23 1116 Active URINE DRUG SCREEN FOR ER ONLY 12/23 1116 Complete URINALYSIS 12/23 1116 Complete TROPONIN LEVEL 12/23 1116 Complete PROLACTIN 12/23 1116 Complete MAGNESIUM 12/23 1116 Complete ETHANOL 12/23 1116 Complete D-DIMER 12/23 1116 Complete COMPREHENSIVE METABOLIC PANEL 12/23 1116 Complete CBC WITHOUT DIFFERENTIAL 12/23 1116 Complete EKG 12/23 1116 Active Laboratory Tests 12/23/16 1553: Troponin I < 0.01 12/23/16 1530: Urine Opiates Screen < 100.00, Methadone Screen 51, Barbiturate Screen < 60, Ur Phencyclidine Scrn 9.10, Amphetamines Screen < 100, U Benzodiazepines Scrn < 85, Urine Cocaine Screen < 50, Urine Cannabis Screen < 5.00, Urinalysis LIGHT H, Urine Color YEL, Urine Clarity HAZY H, Urine pH 6.5, Ur Specific [place] 1.020, Urine Protein 30 H, Urine Ketones NEG, Urine Nitrite POS H, Urine Bilirubin NEG, Urine Urobilinogen 0.2, Ur Leukocyte Esterase TRACE H, Ur Microscopic SEDIMENT EXAMINED, Urine WBC 10-15 H, Ur Epithelial Cells RARE, Urine Bacteria MANY H, Urine Hemoglobin NEG, Urine Glucose NEG 12/23/16 1133: Anion Gap 10, Estimated GFR > 60, BUN/Creatinine Ratio 25.7 H, Glucose 116 H, Calcium 9.3, Magnesium 1.9, Total Bilirubin 0.4, AST 20, ALT 22, Alkaline Phosphatase 167 H, Troponin I < 0.01, Total Protein 8.0, Albumin 4.4, Globulin 3.6, Albumin/Globulin Ratio 1.2, TSH 1.120, Thyroxine (T4) 12.5 H, Prolactin 9.4, D-Dimer High Sensitivty < 200, CBC w Diff NO MAN DIFF REQ, RBC 4.39, MCV 82.1, MCH 27.1, RDW 14.8 H, MPV 8.8, Gran % 77.7 H, Lymphocytes % 14.4 L, Monocytes % 5.7, Eosinophils % 1.8, Basophils % 0.4, Absolute Granulocytes 9.2 H, Absolute Lymphocytes 1.7, Absolute Monocytes 0.7 H, Absolute Eosinophils 0.2 , Absolute Basophils 0, PUBS MCHC 33.0, Serum Alcohol < 10.0 12/23/2016 12:13:33 PM EKG was remarkable for diffuse ST elevation however previous EKGs shows no change Patient however was administered aspirin prophylaxis 12/23/2016 1:19:20 PM discussed patient with regulatory affairs specialist Dr. Boss who advised patient to receive second set and if second set of troponin and EKG were unremarkable and patient still was asymptomatic that she can follow up in office this week for her concerns of chest pain prior to arrival 12/23/2016 2:17:06 PM patient was reevaluated on multiple occasions noted to be resting comfortably at bedside. president ceo & founder still noted patient normal sinus rhythm 12/23/2016 2:31:[address] Cosby was patient multiple occasions however it is noted that he is not available to speak with in which he did per patient witnessed patient's presenting complaint of the tremulous activity in his office however currently patient's blood work was unremarkable and patient 12/23/2016 4:45:32 PM after multiple re-evaluations the patient she was resting comfortably at bedside noted to be sleeping. There was no witnessed tremulous activity for patient's presenting complaints while patient was in the emergency room for over 7 hours. Patient's second cardiac enzyme AND EKG was UNREMARKABLE AND NO CHANGE HAD OCCURRED. upon discharge patient looks well no apparent distress and will comply with discharge instructions and had no questions. (ROXIE ASHBY) Diagnostic Imaging: Viewed by Me: Radiology Read. CXR Impression: no acute abnormality, no infiltrates Initial ED EKG: NOTED DIFFUSE st ELEVATION SINUS RHYTHM NOTED AT 96 BPM UNCHANGED FROM PREVIOUS DICTATED 07/13/2006 Repeat EKG: unchanged Comments: PATIENT: LUIZA MONTANEZ PRESENT AGE: 66 PATIENT ACCOUNT NO: [id number] : 48 LOCATION: [facility] ORDERING PHYSICIAN: ROXIE VALLEJO SERVICE DATE: 12/23/16 EXAM TYPE: RAD - XRY-CHEST XRAY, PA AND LATERAL EXAMINATION: XR CHEST CLINICAL INFORMATION: Chest pain COMPARISON: Chest x-ray of 07/12/2016 and 02/26/2015. CT chest of 12/21/2016 TECHNIQUE: 2 views of the chest were obtained. FINDINGS: The lungs are normally and symmetrically expanded. No focal consolidation, changes of congestion or pleural effusions are seen. No pneumothorax. Chronic fracture deformities of the right mid clavicle and right upper ribs are again noted. No acute osseous abnormality. The visualized spine is some unremarkable. IMPRESSION: No acute pulmonary process. DICTATED BY: ANGELICA LANDIS MD DATE/TIME DICTATED:12/23/16 (ROXIE ASHBY) Departure Departure Disposition: HOME OR SELF CARE Condition: Stable Clinical Impression Primary Impression: Chest pain Secondary Impressions: Occasional tremors Referrals: DEE LANE MD (PCP/Family) Additional Instructions: As discussed follow-up with your neurologist this week if symptoms do continue. Continue home medications as directed. IF Symptoms worsen or if YOU develop any new concerning symptom return to emergency room Departure Forms: Customer Survey General Discharge Information (ROXIE ASHBY) PA/SPORTS PHYSICAL THERAPIST Co-Sign Statement Statement: ED Attending supervision documentation- [X] I saw and evaluated the patient. I have also reviewed all the pertinent lab results and diagnostic results. I agree with the findings and the plan of care as documented in the PA's/SPORTS PHYSICAL THERAPIST's documentation. [] I have reviewed the ED Record and agree with the PA's/SPORTS PHYSICAL THERAPIST's documentation. [] Additions or exceptions (if any) to the PAs/SPORTS PHYSICAL THERAPIST's note and plan are summarized below: [] (MERY ARRINGTON DO) Critical Care Note Critical Care Note Critical Care Time: non-applicable (DOMINICK VALLEJO,ROXIE)
[2016-12-23] MEDS ORDERED: FERROUS SULFAT325 M3 PO (11:29)
[2016-12-23 11:52] LABS: ABSOLUTE BASOPHIL COUNT 0 /CUMM (0.0-0.2); ABSOLUTE EOSINOPHIL COUNT 0.2 /CUMM (0.0-0.7); ABSOLUTE GRANULOCYTE CT 9.2 /CUMM (1.4-6.5); ABSOLUTE LYMPH COUNT 1.7 /CUMM (1.2-3.4); ABSOLUTE MONOCYTE COUNT 0.7 /CUMM (0.10-0.60); BASOPHIL % 0.4 % (0.0-2.0); EOSINOPHIL % 1.8 % (0-5); GRANULOCYTE % 77.7 % (42.2-75.2); MEAN CORPUSCULAR HGB 27.1 PG (27.0-31.0); MEAN CORPUSCULAR VOLUME 82.1 FL (81.0-99.0); MEAN PLATELET VOLUME 8.8 FL (7.4-10.4); PLATELET COUNT 278 /CUMM (130-400); RBC DISTRIBUTION WIDTH 14.8 % (11.5-14.5); RED BLOOD CELL CT 4.39 /CUMM (4.20-5.40); WHITE BLOOD CELL COUNT 11.9 /CUMM (4.8-10.8)
--- NOTE | 2016-12-23 13:04 | RADIOLOGY REPORT ---
EXAMINATION: XR CHEST CLINICAL INFORMATION: Chest pain COMPARISON: Chest x-ray of 07/12/2016 and 02/26/2015. CT chest of 12/21/2016 TECHNIQUE: 2 views of the chest were obtained. FINDINGS: The lungs are normally and symmetrically expanded. No focal consolidation, changes of congestion or pleural effusions are seen. No pneumothorax. Chronic fracture deformities of the right mid clavicle and right upper ribs are again noted. No acute osseous abnormality. The visualized spine is some unremarkable. IMPRESSION: No acute pulmonary process.
[2016-12-23 15:27] VITALS: BP 177/85
== END 2016-12-23 16:54 ==
LOC: ERH 09:11
PROVIDERS: Physician Assistant
DX: R07.9 Chest pain, unspecified (principal); R25.1 Tremor, unspecified; I10 Essential (primary) hypertension; F10.10 Alcohol abuse, uncomplicated; J44.9 Chronic obstructive pulmonary disease, unspecified; I48.91 Unspecified atrial fibrillation; E11.9 Type 2 diabetes mellitus without complications
CPT/HCPCS: 80307; 81001; 93005; 93010; G0480

== ENCOUNTER 2017-06-17 10:41 | Observation (INO) | payer OTHER, MEDICARE ==
[~2017-06-17] VITALS: Ht 165.1 cm; Wt 83.0 kg
[~2017-06-17 10:41] MED LIST changes: +ATORVASTATIN CA20 M1 PO; +ELIQUIS5 M1 PO; +GLIMEPIRIDE2 MG PO; +IBUPROFEN400 M1 PO; +KEPPRA500 M1 PO; +LEVEMIR FL100 UNIT/1 SC; +LEVEMIR100 UNIT/1 SC; +METFORMIN HCL1000 M1 PO; +METOPROLOL TART25 M1 PO; +NASONEX17 GM NASB; +NITROFURANTOIN100 M5 PO; +NOVOLOG100 UNIT/2 SC; +OXYCODONE HCL5 M1 PO; +PROAIR HFA8.5 GM INH; +TYLENOL325 M1 PO
--- NOTE | 2017-06-17 10:54 | ED CARDIAC/CP/PALPITATIONS ---
History of Present Illness General Chief Complaint: Palpitations Stated Complaint: BIBA RAPID A-FIB Source: patient, old records, EMS Exam Limitations: no limitations Vital Signs & Intake/Output Vital Signs & Intake/Output Vital Signs Date Time Temp Pulse Resp B/P B/P Pulse O2 O2 Flow FiO2 Mean Ox Delivery Rate 06/17 1253 97.4 87 18 98/59 96 06/17 1131 Nasal 2.0L Cannula 06/17 1112 110/78 06/17 1104 135 62 06/17 1050 98.0 135 24 96 Nasal 2.0L Cannula Allergies Coded Allergies: Sulfa (Sulfonamide Antibiotics) (Intermediate, ITCH 01/14/17) penicillin G (ITCH 01/14/17) Reconcile Medications Apixaban (Eliquis) 5 MG TABLET 1 TAB PO BID BLOOD THINNER .. Atorvastatin Calcium 20 MG TABLET 1 TAB PO DAILY CHOLESTEROL (Reported) Citalopram Hydrobromide (Celexa) 10 MG TABLET 1 TAB PO DAILY Mental health ( Reported) Cyanocobalamin (Vitamin B-12) 1,000 MCG TABLET 1 TAB PO DAILY Supplement ( Reported) Diltiazem HCl (Diltiazem 24HR ER) 120 MG CAP.ER.24H 1 CAP PO DAILY afib Ferrous Sulfate 325 MG (65 MG IRON) TABLET 1 TAB PO TID ANEMIA . Folic Acid 1 MG TABLET 1 TAB PO DAILY Supplement (Reported) Glimepiride 2 MG TABLET 1 TAB PO BID DIABETES . Insulin Detemir (Levemir) 100 UNIT/ML VIAL 20 UNITS SC DAILY DIABETES . Metformin HCl 1,000 MG TABLET 1 TAB PO BID DIABETES . Metoprolol Tartrate 25 MG TABLET 12.5 MG PO BID HEART/BP . Omeprazole 40 MG CAPSULE.DR 1 CAP PO BID GERD (Reported) Oxycodone HCl 5 MG TABLET 1 TAB PO Q6P PRN PAIN SCALE 7-10 (SEVERE) . Pregabalin (Lyrica) 50 MG CAPSULE 2 CAP PO DAILY NERVE PAIN (Reported) Tiotropium [place] (Spiriva) 18 MCG CAP.W.DEV 1 CAP INH DAILY COPD (Reported) Triage Nurses Notes Reviewed? yes Onset: Abrupt Duration: minute(s): (FEW) Timing: single episode today Activities at Onset: STANDING UP IN PCP OFFICE Aspirin Today: no aspirin today HPI: 67 year old female with history of HTN, COPD, afib on ELIQUIS and metoprolol presents via EMS from [facility] across the street for episode of near syncope after standing up after a regular checkup. She was found to be in rapid atrial flutter. Patient was initially slow to respond but remembers everything. 15 mg of IV cardizem was given in the field. She did not take her medications this morning but took them all last night. She denies any chest pain or shortness of breath. SHe was due to see Dr. Boss after this appointment for a regular checkup. She still smokes 1.5 ppd. Past History Travel History Traveled to [place] past 21 day No Medical History Any Pertinent Medical History? 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 No Review of Systems Review of Systems Constitutional: Denies: chills, fever. EENTM: Reports: no symptoms. Respiratory: Denies: cough, short of breath, sputum production. Cardiovascular: Reports: syncope (NEAR). Denies: chest pain, palpitations, peripheral edema. GI: Denies: abdominal pain. Genitourinary: Reports: no symptoms. Musculoskeletal: Reports: no symptoms. Skin: Reports: no symptoms. Neurological/Psychological: Reports: no symptoms. Hematologic/Endocrine: Denies: bruising, bleeding, polyuria, polydipsia. Immunologic/Allergic: Reports: no symptoms. All Other Systems: Reviewed and Negative Physical Exam Physical Exam General Appearance: well developed/nourished, alert, awake, mild distress, moderate distress Head: atraumatic, normal appearance Eyes: Bilateral: normal appearance, PERRL, EOMI. Ears, Nose, Throat: normal pharynx, hearing grossly normal Neck: normal inspection, supple, full range of motion Respiratory: normal breath sounds, chest non-tender, no respiratory distress Cardiovascular: regular rate/rhythm, tachycardia Peripheral Pulses: 2+ radial (R), 2+ radial (L) Gastrointestinal: normal bowel sounds, soft, non-tender Back: normal inspection, normal range of motion Extremities: normal inspection, normal capillary refill, normal range of motion, calf tenderness, swelling (TRACE) Neurologic/Psych: no motor/sensory deficits, awake, alert, oriented x 3 Skin: intact, normal color, warm/dry Core Measures ACS in differential dx? Yes CVA/TIA Diagnosis No Sepsis Present: No Sepsis Focused Exam Completed? No Progress Differential Diagnosis: atrial fibrillation, CHF/pulm edema, pneumothorax, pulmonary embolism, A FLUTTER Plan of Care: Orders Procedure Date/time Status Heart Healthy Diet 06/[address] in observation 06/17 1252 Active ED Holding Orders 06/17 1252 Active Vital Signs 06/17 1252 Active Code Status 06/17 1252 Active MISTAKE 06/17 1053 Active Telemetry/Stock Fitter 06/17 1053 Active TROPONIN LEVEL 06/17 1053 Complete PARTIAL THROMBOPLASTIN TIME 06/17 1053 Complete PROTHROMBIN TIME 06/17 1053 Complete MAGNESIUM 06/17 1053 Complete COMPREHENSIVE METABOLIC PANEL 06/17 1053 Complete CBC WITHOUT DIFFERENTIAL 06/17 1053 Complete B-TYPE NATRIURETIC PEP (BNP) 06/17 1053 Complete EKG 06/17 1043 Active Current Medications Sig/Miriam Start time Last Medication Dose Stop Time Status Admin Metoprolol Tartrate 12.5 MG ONCE ONE 06/17 1300 UNVr (Lopressor) 06/17 1301 Apixaban 5 MG BID 06/17 1247 UNVr (Eliquis) Diltiazem HCl 125 MG ONCE ONE 06/17 1200 AC (Cardizem DRIP) 06/18 0029 Sodium Chloride 100 ML (Normal Saline 0.9%) Laboratory Tests 06/17/17 1115: Anion Gap 16, Estimated GFR 55 L, BUN/Creatinine Ratio 34.0 H, Glucose 91, Calcium 8.9, Magnesium 1.4 L, Total Bilirubin 0.3, AST 18, ALT 26, Alkaline Phosphatase 137 H, Troponin I 0.04, Ikk-P-Nnuiohqlosv Pept 85390 H, Total Protein 7.3, Albumin 4.1, Globulin 3.2, Albumin/Globulin Ratio 1.3, PT 14.9 H, INR 1.42 H, APTT 40 H, CBC w Diff NO MAN DIFF REQ, RBC 4.31, MCV 78.5 L, MCH 25.3 L, RDW 26.5 H, MPV 10.0, Gran % 78.9 H, Lymphocytes % 14.6 L, Monocytes % 5.9, Eosinophils % 0.3, Basophils % 0.3, Absolute Granulocytes 10.2 H, Absolute Lymphocytes 1.9, Absolute Monocytes 0.8 H, Absolute Eosinophils 0, Absolute Basophils 0, PUBS MCHC 32.2 L 1:[address] CANAS IN THE ER, D/W HOSPITALIST, PLACED IN OBSERVATION Diagnostic Imaging: Viewed by Me: Radiology Read. Discussed w/RAD: Radiology Read. CXR Impression: PATIENT: LUIZA MONTANEZ PRESENT AGE: 67 PATIENT ACCOUNT NO: [id number] : 48 LOCATION: [facility] ORDERING PHYSICIAN: Kay Smith MD SERVICE DATE: 06/17/17 EXAM TYPE: RAD - XRY-PORTABLE CHEST XRAY EXAMINATION: XR PORTABLE CHEST CLINICAL INFORMATION: 67-year-old woman with near syncope. COMPARISON: 05/13/2017 chest radiograph TECHNIQUE: Portable frontal view of the chest was obtained. FINDINGS: The lungs are relatively well expanded, without evidence of focal airspace consolidation or overt edema. Subsegmental atelectatic changes are again noted at the left lung base and may be chronic. Heart size is prominent, although stable. There are no large pleural effusions. Chronic right-sided rib fractures are again noted. IMPRESSION: No convincing radiographic evidence of an acute cardiopulmonary process. DICTATED BY: Gogo Hernandes MD DATE/TIME DICTATED:06/17/171137 ENGINEERING MODEL MAKER:TA DATE/TIME TRANSCRIBED:06/17/171137 CONFIDENTIAL, DO NOT COPY WITHOUT APPROPRIATE AUTHORIZATION. <Electronically signed in Other Vendor System> SIGNED BY: Gogo Hernandes MD 06/17/17 8270 Initial ED EKG: ATRIAL FLUTTER 103 BPM Rhythm Strip: atrial flutter (130'S) Departure Departure Time of Disposition: 1252 Disposition: STILL A PATIENT Condition: Stable Clinical Impression Primary Impression: Atrial flutter Referrals: Amy PEARSON,Celestino Peralta (PCP/Family) Departure Forms: Customer Survey General Discharge Information Prescriptions: Current Visit Scripts Diltiazem HCl (Diltiazem 24HR ER) 1 CAP PO DAILY #30 CAP Observation Note Spoke With: Brent PEARSON,Shante Antonio Physician Advisor Notified: MERY ARRINGTON DO (CASE MANAGEMENT) Place Patient In: Non-ED OBS Care Area Rationale for Observation: My rational for observation is as follows TELE MONITOR, SERIAL EKG/TROPONIN, CARDIZEM SHA[place], RESTART MIRANDA, CARDIOLOGY CONSULT DR CANAS]. Critical Care Note Critical Care Note Critical Care Time: 30-74 min ED Attending Observation Initial Observation Note: I have seen and personally examined LUIZA MONTANEZ on 06/17/17 at 1057. I agree with the current emergency department documentation. The disposition (admission or discharge) is uncertain at this time, she needs a period of observation for the following reason(s): The ED Nurse caring for this patient has been personally informed as to what the patient is being observed for.
[2017-06-17 11:35] LABS: PT 14.9 SEC (9.4-12.5); PTT 40 SEC (25-37)
[2017-06-17 11:38] LABS: ABSOLUTE BASOPHIL COUNT 0 /CUMM (0.0-0.2); ABSOLUTE EOSINOPHIL COUNT 0 /CUMM (0.0-0.7); ABSOLUTE GRANULOCYTE CT 10.2 /CUMM (1.4-6.5); ABSOLUTE LYMPH COUNT 1.9 /CUMM (1.2-3.4); ABSOLUTE MONOCYTE COUNT 0.8 /CUMM (0.10-0.60); BASOPHIL % 0.3 % (0.0-2.0); EOSINOPHIL % 0.3 % (0-5); GRANULOCYTE % 78.9 % (42.2-75.2); HEMATOCRIT 33.8 % (37-47); MEAN CORPUSCULAR HGB 25.3 PG (27.0-31.0); MEAN CORPUSCULAR HGB CONC 32.2 G/DL (33.0-37.0); MEAN CORPUSCULAR VOLUME 78.5 FL (81.0-99.0); PLATELET COUNT 367 /CUMM (130-400); RBC DISTRIBUTION WIDTH 26.5 % (11.5-14.5); RED BLOOD CELL CT 4.31 /CUMM (4.20-5.40); WHITE BLOOD CELL COUNT 12.9 /CUMM (4.8-10.8)
--- NOTE | 2017-06-17 11:43 | RADIOLOGY REPORT ---
EXAMINATION: XR PORTABLE CHEST CLINICAL INFORMATION: 67-year-old woman with near syncope. COMPARISON: 05/13/2017 chest radiograph TECHNIQUE: Portable frontal view of the chest was obtained. FINDINGS: The lungs are relatively well expanded, without evidence of focal airspace consolidation or overt edema. Subsegmental atelectatic changes are again noted at the left lung base and may be chronic. Heart size is prominent, although stable. There are no large pleural effusions. Chronic right-sided rib fractures are again noted. IMPRESSION: No convincing radiographic evidence of an acute cardiopulmonary process.
--- NOTE | 2017-06-17 13:40 | History & Physical ---
Myriam Holcomb MD 06/17/17 0550: General Information and [facility] MD Statement: I have seen and personally examined LUIZA MONTANEZ and documented this H&P. The patient is a 67 year old F who presented with a patient stated chief complaint of presyncopal episode and aflutter/afib rates to 170. Source of Information: patient, old records, EMS Exam Limitations: no limitations History of Present Illness: Patient is a 67 year old female with a PMH significant for hypertension, atrial fibrillation, CAD, COPD, GERD, diabetes that is brought in by ambulance today for presyncopal episode and A. fib/A flutter to 170. The patient has recollection of all events that occurred today. She was at her PCP's office ( Dr. Reyes of [facility]) when she states that she had a seizure. She states that she stood in one position and could not talk and had no control of her hands and feet. She denies any loss of consciousness, falling, aura, palpitations, chest pain, loss of bowel or bladder function, weakness, shortness of breath. However , EMS states that her medical office staff reported there was no evidence of a seizure and to them it looked like she had a presyncopal episode on standing. Prior to this episode, her vitals were taken and her heart rate was found to be in the 170s in atrial flutter/atrial fib. The patient reports that her last "seizure" was a few days ago. The patient took all of her medications last night but did not take any this morning. She was also supposed to see Dr. 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 Apparently she was charted on Keppra by Dr. Reyes who thought she had a partial seizure but after negative EEG the Keppra was discontinued by Dr. Cosby. She does not remember when this was. He states that she has seizures often. She also reports that she has some recent breath and is on 2 L of oxygen at home. She sleeps with one pillow at night. She also states that she recently has had diarrhea, most recently last night. Apparently Dr. Reyes attributed it to her metformin and wanted to switch it to 10 units of insulin twice a day. She also states that she feels nauseous "all the time" and attributes it to taking too many medications. The last time she vomited was a few days ago. She complains of chronic lower back pain. Patient was last admitted in early May for diffuse abdominal pain, lethargy , hyperglycemia. Prior to this she was admitted to [place] for atrial fibrillation/atrial flutter. She had an electrical cardioversion done and was also treated for her COPD on the same admission. She had a recent echocardiogram in April 2017 showed an EF of greater than 60%, no other abnormalities. Patient smokes 1.5 packs per day for 50 years. She does not drink alcohol and does not do any other drugs. She lives with her boyfriend and is independent in her activities of daily living. She uses a cane and a walker sometimes. The patient is allergic to sulfa drugs and penicillin. Allergies/Medications Allergies: Coded Allergies: Sulfa (Sulfonamide Antibiotics) (Intermediate, ITCH 01/14/17) penicillin G (ITCH 01/14/17) Compliance With Home Meds: GOOD Past History Travel History Traveled to [place] past 21 day No Medical History Neurological: PARTIAL SEIZURES EENT: NONE Cardiovascular: aflutter, CAD, hypertension, AFIB/FLUTTER Respiratory: COPD Gastrointestinal: peptic ulcer disease, GERD, barretts, SB pill cam in 2006 showed non-bleeding AVMs Hepatic: NONE Renal: KIDNEY STONES ESWL, RENAL STENT PLACEME Musculoskeletal: DEGENERATIVE DISC ARTHRITIS PELVIC FX Psychiatric: alcohol dependence, depression Endocrine: NONE Blood Disorders: NONE Cancer(s): breast cancer (1997 no chemotherapy ), cervical cancer (), salviary gland tumor EDGE STAINER/Reproductive: 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 self Services at Home: None Primary Language: Nigerian ETOH Use: denies use Living Will? no Functional Ability ADLs Independent: dressing, eating, toileting, bathing. Ambulation: independent IADLs Independent: shopping, housework, finances, food prep, telephone, medication admin. Review of Systems Review of Systems Constitutional: Reports: see HPI, weakness. EENTM: Reports: no symptoms. Cardiovascular: Reports: no symptoms. Respiratory: Reports: no symptoms. GI: Reports: no symptoms. Genitourinary: Reports: no symptoms. Musculoskeletal: Reports: back pain. Skin: Reports: no symptoms. Neurological/Psychological: Reports: see HPI, unable to move lower ext, unable to move upper ext, weakness. Hematologic/Endocrine: Reports: no symptoms. Immunologic/Allergic: Reports: no symptoms. All Other Systems: Reviewed and Negative Exam & Diagnostic Data Last 24 Hrs of Vital Signs/I&O Vital Signs Date Time Temp Pulse Resp B/P B/P Pulse O2 O2 Flow FiO2 Mean Ox Delivery Rate 06/17 1401 87 98/59 06/17 1253 97.4 87 18 98/59 96 06/17 1131 Nasal 2.0L Cannula 06/17 1112 110/78 06/17 1104 135 97/62 06/17 1050 98.0 135 24 96 Nasal 2.0L Cannula Intake & Output 06/17 1600 06/17 0800 06/17 0000 Intake Total 0 Output Total Balance 0 Intake, Oral 0 Patient 183 lb Weight Weight Reported by Patient Measurement Method Physical Exam General Appearance Alert, Oriented X3, Cooperative, No Acute Distress Skin No Rashes, No Breakdown, No Significant Lesion Skin Temp/Moisture Exam: Warm/Dry Sepsis Skin Exam (color): Normal for Ethnicity HEENT Atraumatic, PERRLA, EOMI, Mucous Membr. moist/pink Neck Supple, No JVD Cardiovascular Normal S1, Normal S2, No Murmurs Lungs wheezes throughout Abdomen Normal Bowel Sounds, Soft, No Tenderness Neurological Normal Gait Extremities No Clubbing, No Cyanosis, No Edema, Normal Pulses, No Tenderness/ Swelling Vascular Pulses Symmetrical Last 24 Hrs of Labs/Evan: Laboratory Tests 06/17/17 1115: Anion Gap 16, Estimated GFR 55 L, BUN/Creatinine Ratio 34.0 H, Glucose 91, Calcium 8.9, Magnesium 1.4 L, Total Bilirubin 0.3, AST 18, ALT 26, Alkaline Phosphatase 137 H, Troponin I 0.04, Olo-G-Puatvkqlepr Pept 73350 H, Total Protein 7.3, Albumin 4.1, Globulin 3.2, Albumin/Globulin Ratio 1.3, 25-OH Vitamin D Total 19.8 L, PT 14.9 H, INR 1.42 H, APTT 40 H, CBC w Diff NO MAN DIFF REQ, RBC 4.31, MCV 78.5 L, MCH 25.3 L, RDW 26.5 H, MPV 10.0, Gran % 78.9 H, Lymphocytes % 14.6 L, Monocytes % 5.9, Eosinophils % 0.3, Basophils % 0.3, Absolute Granulocytes 10.2 H, Absolute Lymphocytes 1.9, Absolute Monocytes 0.8 H, Absolute Eosinophils 0, Absolute Basophils 0, PUBS MCHC 32.2 L Assessment/Plan Assessment: Patient is a 67 year old female with a PMH significant for hypertension, atrial fibrillation, CAD, COPD, GERD, diabetes that is brought in by ambulance today for presyncopal episode and A. fib/A flutter to 170. Patient states that she had a seizure today but as per EMS and office staff where she was seeing her primary care doctor, she had a presyncopal episode brought on by standing up. The patient has a history of atrial fib/flutter and she had a cardioversion. She usually takes Eliquis 5 mg, diltiazem, metoprolol. In the ED, patient vitals were temperature 98, pulse rate 135, respiratory rate 24, blood pressure 97/62, 96% oxygen saturation on 2 L. Labs showed WBC 12.9, hemoglobin 10.9, creatinine 1.0, MCV 78.5, BNP 13,000, troponin negative, alkaline phosphatase 137, magnesium 1.4, potassium 4.3. Of note the patient's previous admission she had BNP 1000. Patient had thyroid function tests done in May which was normal. The patient takes daily B12. Her last vitamin D was 12.1 and she was being prescribed vitamin D supplementation. In the ED urine cultures and blood cultures were taken and chest x-ray was found to be negative. She was given 12.5 of Lopressor, Eliquis 5 mg and a diltiazem drip. The patient's EKG showed a rate of 103, 2-1 or 3-1 atrial flutter, QTC 466. Telemetry monitoring in the room on interview showed heart rate ranging between 111-128 and blood pressure 98/59. Plan Patient will be observed in telemetry for the following: #1 atrial fibrillation/flutter Dr. Daniel is already seeing the patient for Dr. Boss No need for repeat echocardiogram. Troponins and EKGs at 5 PM and 11 PM Continue Cardizem drip for now Kidney patient's Eliquis and metoprolol As patient is on Eliquis, do not give NSAIDs #2 question of seizure Consult with Dr. Cosby Likely repeat EEG, we will wait for Dr. Cosby's recommendations #3 nicotine dependence Order nicotine patch #4 chronic medical problems We will restart patient's PPI, Lyrica and put her on sliding scale NovoLog insulin Accu-Cheks Patient is full code As Ranked By This Provider Problem List: 1. Rapid atrial fibrillation Core Measures/Misc (02/22) Acute Coronary Syndrome ACS Diagnosis: No Congestive Heart Failure Congestive Heart Failure Diagnosis No Cerebrovascular Accident CVA/TIA Diagnosis: No VTE (View Protocol) VTE Risk Factors Age>40 No Mechanical VTE Prophylaxis d/t Other No VTE Pharm Prophylaxis d/t NA PharmProphylax ordered Sepsis (View protocol) Sepsis Present: No Jacky Lieberman 06/17/17 1457: Resident Review Statement Resident Statement: examined this patient, discussed with technical intern, agreed with technical intern, discussed with family, reviewed EMR data (avail), discussed with nursing , discussed with case mgmt, reviewed images, amended to note Other Findings: This is a 67-year-old female with past medical history significant for hypertension, hyperlipidemia, depression type 2 diabetes mellitus, seizures, atrial fibrillation on anticoagulation, GERD, peptic ulcer disease, COPD on 2 L oxygen, current smoker, coronary artery disease, breast cancer status post lumpectomy, cervical cancer status post hysterectomy was brought in by ambulance from PCP office after a near syncope episode. Patient was at Dr. Sandoval PCP office for follow-up. According to the patient she had an episode of seizures without aura, bladder or bowel incontinence, loss of consciousness. However according to the nurse she had near syncope episode associated with high heart rate 170. Ambulance was called and she was given 15 mg of IV Cardizem push before transferring to the emergency room. She was given IV metoprolol 5 mg and was started on Cardizem drip in the emergency room. Patient denies any chest pain, palpitations. However she reports shortness of breath on exertion. Denies any fever, chills, cough, recent sick contact or travel history. Patient reports ongoing nausea and vomiting, diarrhea on and off. Metformin was discontinued recently. She uses 2 L oxygen at home for COPD. She continues to smoke one and half pack per day 75- pack-year smoking history. She denies any abdomen pain, frequency, urgency, dysuria. No lower extremity swelling. ------ Vitals at the time of admission afebrile, tachycardic 135, respiratory rate 24, blood pressure 97/62, saturating at 96 on 2 L oxygen. Physical exam HEENT within normal limits, no JVD, S1-S2 normal, bilateral lung air entry good, b/l wheezes, abdomen nontender, lower extremity no cyanosis, clubbing. Labs leukocytosis 12.9, hemoglobin 10.9, hematocrit 33, platelets 367. INR 1.42. BMP normal. Magnesium 1.4, ALP 137. proBNP 13,000. Chest x-ray was normal . EKG aflutter, irregularly irregular, rate 120, no ST-T wave changes. She received 1 dose of IV Cardizem 15 mg, 5 mg IV Lopressor, started on Cardizem drip at 10 mL per hr, eliqus 5mg. She will be placed under observation status in the telemetry floor for next 24- 48 hours. 1. Rapid A. flutter she was brought in by ambulance after near syncope episode at PCP office. Heart rate was in 170, received IV Cardizem 15, IV Lopressor 5. Started on Cardizem drip. Denies any chest pain or palpitations. Vitals stable. Labs within normal limits. Troponin and EKG no new abnormalities. Will be placed in observation in the telemetry floor for management of rapid atrial flutter. -Continuous telemetry monitoring -Continue Cardizem drip and titrate accordingly as per heart rate -Can restart home medication Cardizem once heart rate is under control -Continue anticoagulation with eliqus 5 twice daily. -Continue metoprolol -Serial troponin and EKG 5 PM, 11 PM -Cardiology recommendation follow-up Diabetes oiltzxld-Apgi-Arldj, NovoLog sliding scale, Levemir 10 units twice daily Leukocytosis-no source of infection, found most possibly reactive. Continue to monitor for fever, leukocytosis Chronic microcytic anemia-continue iron sulfate, folate, B12 Vitamin D deficiency continue home medication vitamin D supplementation Hypomagnesemia-magnesium 1.4, repeated Current smoker- nicotine patch ordered. Elevated proBNP-proBNP 13,000 at the time of admission. Prior proBNP was 1000- last month. Will monitor ins and outs. Given her borderline blood pressure, will reevaluate her for requirement of any IV Lasix. Echocardiogram 04/2017 was normal. h/o seizures Abnormal EEG on 04/23/2017- consistent with severe encephalopathy. Intermixed triphasic waves may be reflective of a metabolic cause, hepatic encephalopathy or anoxic brain injury. she was on Keppra 500 mg twice daily, however discontinued by Dr. Cosby. -Neurology consultation Hyperlipidemia continue Lipitor Depression continue Celexa COPD continue 2 L oxygen, TRC, inhaler treatment Nerve pain continue Lyrica Full code DVT prophylaxis-eliqus Heart healthy diet Pain pathway ordered Zaheer Garcia 06/24/17 2142: General Information and HPI Allergies/Medications Home Med list Apixaban (Eliquis) 5 MG TABLET 1 TAB PO BID BLOOD THINNER .. Atorvastatin Calcium 20 MG TABLET 1 TAB PO DAILY CHOLESTEROL (Reported) Citalopram Hydrobromide (Celexa) 10 MG TABLET 1 TAB PO DAILY Mental health ( Reported) Cyanocobalamin (Vitamin B-12) 1,000 MCG TABLET 1 TAB PO DAILY Supplement ( Reported) Diltiazem HCl (Diltiazem 24HR ER) 120 MG CAP.ER.24H 1 CAP PO DAILY afib Ferrous Sulfate 325 MG (65 MG IRON) TABLET 1 TAB PO TID ANEMIA . Folic Acid 1 MG TABLET 1 TAB PO DAILY Supplement (Reported) Glimepiride 2 MG TABLET 1 TAB PO BID DIABETES . Insulin Detemir (Levemir) 100 UNIT/ML VIAL 20 UNITS SC DAILY DIABETES . Metformin HCl 1,000 MG TABLET 1 TAB PO BID DIABETES . Metoprolol Tartrate 25 MG TABLET 12.5 MG PO BID HEART/BP . Omeprazole 40 MG CAPSULE.DR Nevarez CAP PO BID GERD (Reported) Oxycodone HCl 5 MG TABLET 1 TAB PO Q6P PRN PAIN SCALE 7-10 (SEVERE) . Pregabalin (Lyrica) 50 MG CAPSULE 2 CAP PO DAILY NERVE PAIN (Reported) Tiotropium [place] (Spiriva) 18 MCG CAP.W.DEV 1 CAP INH DAILY COPD (Reported) Attending MD Review Statement Attending Statement Attending MD Statement: examined this patient, discuss w/resident/PA/CARTOGRAPHIC DESIGNER, agreed w/resident/PA/CARTOGRAPHIC DESIGNER, reviewed EMR data (avail) Attending Assessment/Plan: agree with the above plan . please see my separate attending note for more details.
--- NOTE | 2017-06-17 14:53 | PN- Student ---
Subjective Subjective: The patient is Zoë Vega who is a 67 year old female with a chief complaint of palpitations and a pre-syncopal episode of aflutter/afib with rates up to 170. Exam Limitation: NONE HPI: The patient is a 67 year old female with a Past Medical History of Hypertension, COPD, atrial fibrillation/flutter, Coronary Artery Disease, Peptic Ulcer Disease , Breast Cancer, Cervical Cancer, Alcohol Dependance and Depression. Patient was brought in via EMS for episodes of syncopy after standing up during a regular checkup at her PCP. Patient was congnizant and remembers the entire events of the day. She did not take her medications in the morning and denies any chest pain or shortness of breath. Patient is a regular smoker (1.5 packs/day) for 50 years. Patient was at her primary care physician's office when she said she had a 'seizure'. She denies any loss of consciousness, chest pain, loss of bowel or bladder function, and shortness of breath. EMS states that there was no evidence of a seizure and in their opinion was a syncopal episode. Patient also states that she had diarrhea the previous night however has been attributed towards her metformin medication which will be switched to 10 units of insulin twice daily. Patient denies drinking alcohol or taking any recreational drugs. Allergies/Medications Allergies: Coded Allergies: Sulfa (Sulfonamide Antibiotics) (Intermediate, ITCH 01/14/17) penicillin G (ITCH 01/14/17) Home Med list Apixaban (Eliquis) 5 MG TABLET 1 TAB PO BID BLOOD THINNER .. Atorvastatin Calcium 20 MG TABLET 1 TAB PO DAILY CHOLESTEROL (Reported) Citalopram Hydrobromide (Celexa) 10 MG TABLET 1 TAB PO DAILY Mental health ( Reported) Cyanocobalamin (Vitamin B-12) 1,000 MCG TABLET 1 TAB PO DAILY Supplement ( Reported) Diltiazem HCl (Diltiazem 24HR Cd) 180 MG CAP.ER.24H 1 CAP PO DAILY HTN . Ferrous Sulfate 325 MG (65 MG IRON) TABLET 1 TAB PO TID ANEMIA . Folic Acid 1 MG TABLET 1 TAB PO DAILY Supplement (Reported) Glimepiride 2 MG TABLET 1 TAB PO BID DIABETES . Insulin Detemir (Levemir) 100 UNIT/ML VIAL 20 UNITS SC DAILY DIABETES . Levetiracetam (Keppra) 500 MG TABLET 1 TAB PO BID seizure ppx Metformin HCl 1,000 MG TABLET 1 TAB PO BID DIABETES . Metoprolol Tartrate 25 MG TABLET 12.5 MG PO BID HEART/BP . Omeprazole 40 MG CAPSULE.DR 1 CAP PO BID GERD (Reported) Oxycodone HCl 5 MG TABLET 1 TAB PO Q6P PRN PAIN SCALE 7-10 (SEVERE) . Pregabalin (Lyrica) 50 MG CAPSULE 2 CAP PO DAILY NERVE PAIN (Reported) Tiotropium [place] (Spiriva) 18 MCG CAP.W.DEV 1 CAP INH DAILY COPD (Reported) Compliance With Home Meds: GOOD Past History Travel History Traveled to [place] past 21 day No Medical History Neurological: PARTIAL SEIZURES EENT: NONE Cardiovascular: aflutter, CAD, hypertension, AFIB/FLUTTER Respiratory: COPD Gastrointestinal: peptic ulcer disease, GERD, barretts, SB pill cam in 2006 showed non-bleeding AVMs Hepatic: NONE Renal: KIDNEY STONES ESWL, RENAL STENT PLACEME Musculoskeletal: DEGENERATIVE DISC ARTHRITIS PELVIC FX Psychiatric: alcohol dependence, depression Endocrine: NONE Blood Disorders: NONE Cancer(s): breast cancer (1997 no chemotherapy ), cervical cancer (), salviary gland tumor 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 self Services at Home: None Primary Language: Irish ETOH Use: denies use Living Will? no Functional Ability ADLs Independent: dressing, eating, toileting, bathing. Ambulation: independent IADLs Independent: shopping, housework, finances, food prep, telephone, medication admin. Review of Systems Review of Systems Constitutional: Reports: see HPI, weakness. EENTM: Reports: no symptoms. Cardiovascular: Reports: no symptoms. Respiratory: Reports: no symptoms. GI: Reports: no symptoms. Genitourinary: Reports: no symptoms. Musculoskeletal: Reports: back pain. Skin: Reports: no symptoms. Neurological/Psychological: Reports: see HPI, unable to move lower ext, unable to move upper ext, weakness. Hematologic/Endocrine: Reports: no symptoms. Immunologic/Allergic: Reports: no symptoms. All Other Systems: Reviewed and Negative Objective Objective: Vitals: Temp = 97.4 Pulse = 87 Resp = 18 BP = 98/59 Pulse Ox = 96% Physical Exam General Appearance Alert, Oriented X3, Cooperative, No Acute Distress Skin No Rashes, No Breakdown, No Significant Lesion Skin Temp/Moisture Exam: Warm/Dry Sepsis Skin Exam (color): Normal for Ethnicity HEENT Atraumatic, PERRLA, EOMI, Mucous Membr. moist/pink Neck Supple, No JVD Cardiovascular Normal S1, Normal S2, No Murmurs Lungs wheezes throughout Abdomen Normal Bowel Sounds, Soft, No Tenderness Neurological Normal Gait Extremities No Clubbing, No Cyanosis, No Edema, Normal Pulses, No Tenderness/ Swelling Vascular Pulses Symmetrical Results Results: Laboratory Tests 06/18/17 1255: pH 7.42, pCO2 42, pO2 83, HCO3 26, ABG O2 Sat (Measured) 95.0 L, P-50 (Temp Corrected) N, Carboxyhemoglobin 0.4 L, O2 Concentration % 2LPM, O2 Delivery Method NC, Phlebotomy Draw Site RIGHT RADIAL 06/18/17 0619: Anion Gap 14, Estimated GFR > 60, BUN/Creatinine Ratio 30.0 H, CBC w Diff NO MAN DIFF REQ, RBC 3.69 L, MCV 79.4 L, MCH 25.5 L, RDW 26.8 H, MPV 9.8, Gran % 76.2 H, Lymphocytes % 16.4 L, Monocytes % 5.9, Eosinophils % 1.2, Basophils % 0.3, Absolute Granulocytes 7.2 H, Absolute Lymphocytes 1.5, Absolute Monocytes 0.6, Absolute Eosinophils 0.1, Absolute Basophils 0, PUBS MCHC 32.2 L 06/18/17 0120: Troponin I 0.04 06/17/17 1719: Troponin I 0.04 06/17/17 1115: Anion Gap 16, Estimated GFR 55 L, BUN/Creatinine Ratio 34.0 H, Glucose 91, Calcium 8.9, Magnesium 1.4 L, Total Bilirubin 0.3, AST 18, ALT 26, Alkaline Phosphatase 137 H, Troponin I 0.04, Zuq-S-Ytwudgdlhbt Pept 73566 H, Total Protein 7.3, Albumin 4.1, Globulin 3.2, Albumin/Globulin Ratio 1.3, 25-OH Vitamin D Total 19.8 L, PT 14.9 H, INR 1.42 H, APTT 40 H, CBC w Diff NO MAN DIFF REQ, RBC 4.31, MCV 78.5 L, MCH 25.3 L, RDW 26.5 H, MPV 10.0, Gran % 78.9 H, Lymphocytes % 14.6 L, Monocytes % 5.9, Eosinophils % 0.3, Basophils % 0.3, Absolute Granulocytes 10.2 H, Absolute Lymphocytes 1.9, Absolute Monocytes 0.8 H, Absolute Eosinophils 0, Absolute Basophils 0, PUBS MCHC 32.2 L Assessment/Plan Assessment: The patient is a 67 year old female with a Past Medical History of Hypertension, COPD, atrial fibrillation/flutter, Coronary Artery Disease, Peptic Ulcer Disease , Breast Cancer, Cervical Cancer, Alcohol Dependance and Depression. Patient was brought in via EMS for episodes of syncopy after standing up during a regular checkup at her PCP. Patient was congnizant and remembers the entire events of the day. She did not take her medications in the morning and denies any chest pain or shortness of breath. Patient is a regular smoker (1.5 packs/day) for 50 years. Patient was at her primary care physician's office when she said she had a 'seizure'. She denies any loss of consciousness, chest pain, loss of bowel or bladder function, and shortness of breath. EMS states that there was no evidence of a seizure and in their opinion was a syncopal episode. Patient also states that she had diarrhea the previous night however has been attributed towards her metformin medication which will be switched to 10 units of insulin twice daily. Patient denies drinking alcohol or taking any recreational drugs. Plan: Plan: Patient will be observed in telemetry for the following: #1 atrial fibrillation/flutter Dr. Daniel is already seeing the patient for Dr. Boss No need for repeat echocardiogram. Troponins and EKGs at 5 PM and 11 PM Continue Viviana crook for now Kidney patient's Eliquis and metoprolol As patient is on Eliquis, do not give NSAIDs #2 question of seizure Consult with Dr. Cosby Likely repeat EEG, we will wait for Dr. Cosby's recommendations #3 nicotine dependence Order nicotine patch #4 chronic medical problems We will restart patient's PPI, Lyrica and put her on sliding scale NovoLog insulin Accu-Cheks Patient is full code Patient is full code
--- NOTE | 2017-06-17 15:22 | PN- Att Addend ---
Attending MD Review Statement Attending Statement Attending MD Statement: examined this patient, discuss w/resident/PA/PT SKILLED, agreed w/resident/PA/PT SKILLED, reviewed EMR data (avail), discussed w/case mgmt Attending Assessment/Plan: 67 yr old female being placed in observation status for pre syncopal episode while at PCP office and found to be in Afib with RVR. pt was brought in to ER by ambulance for above reason. Pt does have h/o afib and is on eliquis and also on metoprolol. Pt says she had stopped taking her diltiazem in the last few weeks after she was told that she does not need it. Unclear reason why she was told that but of note pt is not a very good historian. Will check with Dr Boss about diltiazem. Pt also has h/o COPD and has been smoking for last 50 years and is currently an active 1.5PPD smoker. Pt also gives h/o seizure disorder for which she was put on Keppra which was then later stopped after a short duration by Dr Cosby according to her. Will have to confirm that information with Dr Cosby. She had an EEG done in Apr which did not show any clear seizure activity. AFIB with RVR- d/w dr estrada who is going to follow the pt while she is in hospital. Pt started on cardizem drip. we will cont with that and if her rates become better controlled in am will switch her to po cardizem. Fluid overload secondary to above. high proBNP- will control her rates better and will f/u on her fluid status closely. may use lasix prn for sob but for now hold off due to low bp. DM- uncontrolled- her last Aic was 9.1 in May 2017, will put her on SSI insulin regimen and cont on home dose of levemir 10 U bid and will increase as needed . most likely she will need increase in her dose. Her metformin was stopped due to GI symptoms. d/w pt the care plan.
--- NOTE | 2017-06-17 16:55 | Cons- Neurology ---
General Information and HPI Consulting Request Date of Consult: 06/17/17 Requested By: Zaheer Garcia MD Reason for Consult: Recurring "spells" Source of Information: patient, old records Exam Limitations: no limitations History of Present Illness: 67-year-old woman was at her PCP office this morning when she suddenly felt weak , shaky and with some alteration in consciousness. She was in atrial fibrillation/flutter at 170. She called this episode a "seizure" leading to this consultation but in fact there is no indication of epilepsy. She had been treated empirically with Keppra for a period of time which proved ineffective and in November of this past year in my office had one of her typical spells, during the event there was no palpable pulse but once seated and the event past the blood pressure systolic was 85 and the pulse regular at 80. Consciousness returned quickly once she was seated. She reports several of these episodes monthly, off and on first arising in the morning or rising from a chair. EEG in the office was negative for seizure activity Allergies/Medications Allergies: Coded Allergies: Sulfa (Sulfonamide Antibiotics) (Intermediate, ITCH 01/14/17) penicillin G (ITCH 01/14/17) Home Med List: Apixaban (Eliquis) 5 MG TABLET 1 TAB PO BID BLOOD THINNER .. Atorvastatin Calcium 20 MG TABLET 1 TAB PO DAILY CHOLESTEROL (Reported) Citalopram Hydrobromide (Celexa) 10 MG TABLET 1 TAB PO DAILY Mental health ( Reported) Cyanocobalamin (Vitamin B-12) 1,000 MCG TABLET 1 TAB PO DAILY Supplement ( Reported) Diltiazem HCl (Diltiazem 24HR Cd) 180 MG CAP.ER.24H 1 CAP PO DAILY HTN . Ferrous Sulfate 325 MG (65 MG IRON) TABLET 1 TAB PO TID ANEMIA . Folic Acid 1 MG TABLET 1 TAB PO DAILY Supplement (Reported) Glimepiride 2 MG TABLET 1 TAB PO BID DIABETES . Insulin Detemir (Levemir) 100 UNIT/ML VIAL 20 UNITS SC DAILY DIABETES . Levetiracetam (Keppra) 500 MG TABLET 1 TAB PO BID seizure ppx Metformin HCl 1,000 MG TABLET 1 TAB PO BID DIABETES . Metoprolol Tartrate 25 MG TABLET 12.5 MG PO BID HEART/BP . Omeprazole 40 MG CAPSULE.DR 1 CAP PO BID GERD (Reported) Oxycodone HCl 5 MG TABLET 1 TAB PO Q6P PRN PAIN SCALE 7-10 (SEVERE) . Pregabalin (Lyrica) 50 MG CAPSULE 2 CAP PO DAILY NERVE PAIN (Reported) Tiotropium Howell (Spiriva) 18 MCG CAP.W.DEV 1 CAP INH DAILY COPD (Reported) Current Medications: Current Medications Sig/Miriam Start time Last Medication Dose Route Stop Time Status Admin Acetaminophen 650 MG Q6P PRN 06/17 1445 AC PO Acetaminophen 1,000 MG Q6P PRN 06/17 1445 AC IV Apixaban 5 MG BID 06/17 2200 CAN PO Apixaban 5 MG BID 06/17 1247 AC 06/17 PO 1400 Atorvastatin Calcium 20 MG 1700 06/17 1700 AC 06/17 PO 1638 Cholecalciferol 1,000 IU DAILY 06/17 1447 AC 06/17 PO 1638 Citalopram 10 MG DAILY 06/17 1440 AC 06/17 Hydrobromide PO 1638 Cyanocobalamin 1,000 MCG DAILY 06/17 1440 AC 06/17 PO 1638 Diltiazem HCl 125 MG ONCE ONE 06/17 1200 AC 06/17 Sodium Chloride 100 ML IV 06/18 0029 1316 Ferrous Sulfate 325 MG DAILY 06/17 1441 AC 06/17 PO 1638 Folic Acid 1 MG DAILY 06/17 1441 AC 06/17 PO 1638 Insulin Aspart 0 TIDAC 06/17 1445 AC SC Insulin Detemir 10 UNITS BID 06/18 1000 AC SC Magnesium Sulfate 1 GM Q2H 06/17 1445 AC Dextrose/Water 100 ML IV 06/17 1844 Metoprolol Tartrate 12.5 MG BID 06/17 2200 AC 06/17 PO 1638 Metoprolol Tartrate 12.5 MG ONCE ONE 06/17 1300 DC 06/17 PO 06/17 1301 1401 Metoprolol Tartrate 5 MG ONCE ONE 06/17 1100 DC 06/17 IV 06/17 1101 1104 Metoprolol Tartrate 0 .STK-MED ONE 06/17 1053 DC IV Nicotine 21 MG DAILY 06/17 1439 AC 06/17 TOP 1638 Omeprazole 40 MG DAILY AC 06/17 1442 AC 06/17 PO 1638 Pregabalin 0 .STK-MED ONE 06/17 1647 DC PO Pregabalin 100 MG DAILY 06/17 1442 AC 01/10 PO 1638 Tiotropium Howell 1 PUF DAILY 06/17 1443 AC INH Review of Systems Review of Systems: ROS: A complete medical systems review was obtained. No pertinent complaints were found. 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 self Services at Home: None Primary Language: Arabic Smoking Status: Current Everyday Smoker ETOH Use: denies use Living Will? no Functional Ability ADLs Independent: dressing, eating, toileting, bathing. Ambulation: independent IADLs Independent: shopping, housework, finances, food prep, telephone, medication admin. Exam & Diagnostic Data Vital Signs and I&O Vital Signs Date Time Temp Pulse Resp B/P B/P Pulse O2 O2 Flow FiO2 Mean Ox Delivery Rate 06/17 1401 87 98/59 06/17 1253 97.4 87 18 98/59 96 06/17 1131 Nasal 2.0L Cannula 06/17 1112 110/78 06/17 1104 135 97/62 06/17 1050 98.0 135 24 / 96 Nasal 2.0L Cannula Intake & Output 06/17 1600 06/17 0800 06/17 0000 Intake Total 0 Output Total Balance 0 Intake, Oral 0 Patient 183 lb Weight Weight Reported by Patient Measurement Method Physical Exam: On exam the patient appeared generally well and in no distress. No carotid bruits and no cardiac murmur. No peripheral edema Mental status: Alert, attentive, fully oriented, no language errors, recall and general fund of knowledge seem intact Funduscopic unremarkable Visual gallagher full , Eye movements full without nystagmus, pupils midsize equal round and reactive to light. Facial movement normal bilaterally Facial sensation normal bilaterally Hearing intact bilaterally Uvula elevates midline Tongue protrusion is midline Shoulder shrug symmetric Motor power and tone normal in all 4 extremities Sensation intact to primary modes Tendon reflexes normal and symmetric without pathologic signs Coordination no ataxia Gait [testing deferred] Last 48 Hours of Lab Results: Laboratory Tests 06/17 1115 Chemistry Sodium (137 - 145 mmol/L) 142 Potassium (3.5 - 5.1 mmol/L) 4.3 Chloride (98 - 107 mmol/L) 100 Carbon Dioxide (22 - 30 mmol/L) 25 Anion Gap (5 - 16) 16 BUN (7 - 17 mg/dL) 34 H Creatinine (0.5 - 1.0 mg/dL) 1.0 Estimated GFR (>60 ml/min) 55 L BUN/Creatinine Ratio (7 - 25 %) 34.0 H Glucose (65 - 99 mg/dL) 91 Calcium (8.4 - 10.2 mg/dL) 8.9 Magnesium (1.6 - 2.3 mg/dL) 1.4 L Total Bilirubin (0.2 - 1.3 mg/dL) 0.3 AST (14 - 36 U/L) 18 ALT (9 - 52 U/L) 26 Alkaline Phosphatase (<127 U/L) 137 H Troponin I (< 0.11 ng/ml) 0.04 [id number] Pept (<125 pg/mL) 72898 H Total Protein (6.3 - 8.2 g/dL) 7.3 Albumin (3.5 - 5.0 g/dL) 4.1 Globulin (1.9 - 4.2 gm/dL) 3.2 Albumin/Globulin Ratio (1.1 - 2.2 %) 1.3 25-OH Vitamin D Total (30 - 100 ng/ml) 19.8 L Coagulation PT (9.4 - 12.5 SEC) 14.9 H INR (0.90 - 1.19) 1.42 H APTT (25 - 37 SEC) 40 H Hematology CBC w Diff NO MAN DIFF REQ WBC (4.8 - 10.8 /CUMM) 12.9 H RBC (4.20 - 5.40 /CUMM) 4.31 Hgb (12.0 - 16.0 G/DL) 10.9 L Hct (37 - 47 %) 33.8 L MCV (81.0 - 99.0 FL) 78.5 L MCH (27.0 - 31.0 PG) 25.3 L RDW (11.5 - 14.5 %) 26.5 H Plt Count (130 - 400 /CUMM) 367 MPV (7.4 - 10.4 FL) 10.0 Gran % (42.2 - 75.2 %) 78.9 H Lymphocytes % (20.5 - 51.1 %) 14.6 L Monocytes % (1.7 - 9.3 %) 5.9 Eosinophils % (0 - 5 %) 0.3 Basophils % (0.0 - 2.0 %) 0.3 Absolute Granulocytes (1.4 - 6.5 /CUMM) 10.2 H Absolute Lymphocytes (1.2 - 3.4 /CUMM) 1.9 Absolute Monocytes (0.10 - 0.60 /CUMM) 0.8 H Absolute Eosinophils (0.0 - 0.7 /CUMM) 0 Absolute Basophils (0.0 - 0.2 /CUMM) 0 PUBS MCHC (33.0 - 37.0 G/DL) 32.2 L Imaging/Other Studies: Chest x-ray: o convincing radiographic evidence of an acute cardiopulmonary process. Assessment/Plan Assessment: Syncope or presyncope due to cardiac dysrhythmia No indication that the patient has seizures or a seizure disorder. She has had syncope induced seizure-like activity in the past. Recommendations: Please remove seizures from her medical history Further management by cardiology Consult Acknowledgment - Thank you for your consult request.
--- NOTE | 2017-06-17 19:11 | Event Note ---
See Addendum Event Note Event Note: Around 6pm the housestaff were notified that the patient's troponins bumped from .04 to .28. She was asymtpomatic at the time of the increase, was sleeping. Her ekg was the same. Dr. estrada was notified and suggested to continue monitoring and trending trops and ekgs and to do a limited echo in the morning for lv function and wall motion. Also of note on Cardizem drip of 10 patient's heart rate decreased from 115 to 70s so we decreased the rate of the trip to 5. After 20 minutes her blood pressure was 117 systolic and heart rate was in the 70s.
--- NOTE | 2017-06-17 20:39 | Cons- Cardiology ---
General Information and HPI Consulting Request Date of Consult: 06/17/17 Requested By: Zaheer Garcia MD Reason for Consult: AF with rapid ventricular rate and presyncope Source of Information: patient, old records Exam Limitations: no limitations Allergies/Medications Allergies: Coded Allergies: Sulfa (Sulfonamide Antibiotics) (Intermediate, ITCH 01/14/17) penicillin G (ITCH 01/14/17) Home Med List: Apixaban (Eliquis) 5 MG TABLET 1 TAB PO BID BLOOD THINNER .. Atorvastatin Calcium 20 MG TABLET 1 TAB PO DAILY CHOLESTEROL (Reported) Citalopram Hydrobromide (Celexa) 10 MG TABLET 1 TAB PO DAILY Mental health ( Reported) Cyanocobalamin (Vitamin B-12) 1,000 MCG TABLET 1 TAB PO DAILY Supplement ( Reported) Diltiazem HCl (Diltiazem 24HR Cd) 180 MG CAP.ER.24H 1 CAP PO DAILY HTN . Ferrous Sulfate 325 MG (65 MG IRON) TABLET 1 TAB PO TID ANEMIA . Folic Acid 1 MG TABLET 1 TAB PO DAILY Supplement (Reported) Glimepiride 2 MG TABLET 1 TAB PO BID DIABETES . Insulin Detemir (Levemir) 100 UNIT/ML VIAL 20 UNITS SC DAILY DIABETES . Levetiracetam (Keppra) 500 MG TABLET 1 TAB PO BID seizure ppx Metformin HCl 1,000 MG TABLET 1 TAB PO BID DIABETES . Metoprolol Tartrate 25 MG TABLET 12.5 MG PO BID HEART/BP . Omeprazole 40 MG CAPSULE.DR 1 CAP PO BID GERD (Reported) Oxycodone HCl 5 MG TABLET 1 TAB PO Q6P PRN PAIN SCALE 7-10 (SEVERE) . Pregabalin (Lyrica) 50 MG CAPSULE 2 CAP PO DAILY NERVE PAIN (Reported) Tiotropium Arimo (Spiriva) 18 MCG CAP.W.DEV 1 CAP INH DAILY COPD (Reported) Current Medications: Current Medications Sig/Miriam Start time Last Medication Dose Route Stop Time Status Admin Acetaminophen 650 MG Q6P PRN 06/17 1445 AC PO Acetaminophen 1,000 MG Q6P PRN 06/17 1445 AC IV Apixaban 5 MG BID 06/17 2200 CAN PO Apixaban 5 MG BID 06/17 1247 AC 06/17 PO 1400 Atorvastatin Calcium 20 MG 1700 06/17 1700 AC 06/17 PO 1638 Cholecalciferol 1,000 IU DAILY 06/17 1447 AC 06/17 PO 1638 Citalopram 10 MG DAILY 06/17 1440 AC 06/17 Hydrobromide PO 1638 Cyanocobalamin 1,000 MCG DAILY 06/17 1440 AC 06/17 PO 1638 Diltiazem HCl 125 MG Q24H 06/17 1730 AC Sodium Chloride 100 ML IV Diltiazem HCl 125 MG ONCE ONE 06/17 1200 DC 06/17 Sodium Chloride 100 ML IV 06/18 0029 1316 Ferrous Sulfate 325 MG DAILY 06/17 1441 AC 06/17 PO 1638 Folic Acid 1 MG DAILY 06/17 1441 AC 06/17 PO 1638 Insulin Aspart 0 TIDAC 06/17 1445 AC SC Insulin Detemir 10 UNITS BID 06/18 1000 AC SC Magnesium Sulfate 1 GM Q2H 06/17 1445 DC 06/17 Dextrose/Water 100 ML IV 06/17 1844 2031 Metoprolol Tartrate 12.5 MG BID 06/17 2200 AC 06/17 PO 1638 Metoprolol Tartrate 12.5 MG ONCE ONE 06/17 1300 DC 06/17 PO 06/17 1301 1401 Metoprolol Tartrate 5 MG ONCE ONE 06/17 1100 DC 06/17 IV 06/17 1101 1104 Metoprolol Tartrate 0 .STK-MED ONE 06/17 1053 DC IV Nicotine 21 MG DAILY 06/17 1439 AC 06/17 TOP 1638 Omeprazole 40 MG DAILY AC 06/17 1442 AC 06/17 PO 1638 Pregabalin 0 .STK-MED ONE 06/17 1647 DC PO Pregabalin 100 MG DAILY 06/17 1442 AC 06/17 PO 1638 Tiotropium Arimo 1 PUF DAILY 06/17 1443 AC INH Past History Travel History Traveled to [place] past 21 day No Medical History Neurological: PARTIAL SEIZURES EENT: NONE Cardiovascular: aflutter, CAD, hypertension, AFIB/FLUTTER Respiratory: COPD Gastrointestinal: peptic ulcer disease, GERD, barretts, SB pill cam in 2006 showed non-bleeding AVMs Hepatic: NONE Renal: KIDNEY STONES ESWL, RENAL STENT PLACEME Musculoskeletal: DEGENERATIVE DISC ARTHRITIS PELVIC FX Psychiatric: alcohol dependence, depression Endocrine: NONE Blood Disorders: NONE Cancer(s): breast cancer (1997 no chemotherapy ), cervical cancer (), salviary gland tumor 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 Home Who Do You Live With? self Services at Home: None Primary Language: Guatemalan Smoking Status: Current Everyday Smoker ETOH Use: denies use Living Will? no Functional Ability ADLs Independent: dressing, eating, toileting, bathing. Ambulation: independent IADLs Independent: shopping, housework, finances, food prep, telephone, medication admin. Exam & Diagnostic Data Vital Signs and I&O Vital Signs Date Time Temp Pulse Resp B/P B/P Pulse O2 O2 Flow FiO2 Mean Ox Delivery Rate 06/17 1999 Nasal 2.0L Cannula 06/17 1848 97.3 68 18 108/59 96 06/17 1729 Room Air 06/17 1728 97.0 72 16 106/60 98 Room Air 06/17 1401 87 98/59 06/17 1253 97.4 87 18 98/59 96 06/17 1131 Nasal 2.0L Cannula 06/17 1112 110/78 06/17 1104 135 97/62 06/17 1050 98.0 135 24 97/62 96 Nasal 2.0L Cannula Intake & Output 06/17 1600 06/17 0800 06/17 0000 06/16 1600 06/16 0800 06/16 0000 Intake Total 0 Output Total Balance 0 Intake, Oral 0 Patient 183 lb Weight Weight Reported by Patient Measurement Method Physical Exam: General Appearance Alert, Oriented X3, Cooperative, No Acute Distress Skin Normal HEENT Atraumatic, PERRLA, EOMI, Mucous Membr. moist/pink Neck Supple, No JVD, carotids normal bilaterally without bruits Cardiovascular Irregular S1, S2, tachycardic, 1/6 systolic murmur Lungs wheezes throughout Abdomen Normal Bowel Sounds, Soft, No Tenderness Neurological Non focal Extremities No Clubbing, No Cyanosis, No Edema, Normal Pulses, No Tenderness/ Swelling Vascular 2+ bilaterally Labs/Evan Results: Laboratory Tests 06/17 06/17 1719 1115 Chemistry Sodium (137 - 145 mmol/L) 142 Potassium (3.5 - 5.1 mmol/L) 4.3 Chloride (98 - 107 mmol/L) 100 Carbon Dioxide (22 - 30 mmol/L) 25 Anion Gap (5 - 16) 16 BUN (7 - 17 mg/dL) 34 H Creatinine (0.5 - 1.0 mg/dL) 1.0 Estimated GFR (>60 ml/min) 55 L BUN/Creatinine Ratio (7 - 25 %) 34.0 H Glucose (65 - 99 mg/dL) 91 Calcium (8.4 - 10.2 mg/dL) 8.9 Magnesium (1.6 - 2.3 mg/dL) 1.4 L Total Bilirubin (0.2 - 1.3 mg/dL) 0.3 AST (14 - 36 U/L) 18 ALT (9 - 52 U/L) 26 Alkaline Phosphatase (<127 U/L) 137 H Troponin I (< 0.11 ng/ml) 0.04 0.04 [id number] Pept (<125 pg/mL) 02398 H Total Protein (6.3 - 8.2 g/dL) 7.3 Albumin (3.5 - 5.0 g/dL) 4.1 Globulin (1.9 - 4.2 gm/dL) 3.2 Albumin/Globulin Ratio (1.1 - 2.2 %) 1.3 25-OH Vitamin D Total (30 - 100 ng/ml) 19.8 L Coagulation PT (9.4 - 12.5 SEC) 14.9 H INR (0.90 - 1.19) 1.42 H APTT (25 - 37 SEC) 40 H Hematology CBC w Diff NO MAN DIFF REQ WBC (4.8 - 10.8 /CUMM) 12.9 H RBC (4.20 - 5.40 /CUMM) 4.31 Hgb (12.0 - 16.0 G/DL) 10.9 L Hct (37 - 47 %) 33.8 L MCV (81.0 - 99.0 FL) 78.5 L MCH (27.0 - 31.0 PG) 25.3 L RDW (11.5 - 14.5 %) 26.5 H Plt Count (130 - 400 /CUMM) 367 MPV (7.4 - 10.4 FL) 10.0 Gran % (42.2 - 75.2 %) 78.9 H Lymphocytes % (20.5 - 51.1 %) 14.6 L Monocytes % (1.7 - 9.3 %) 5.9 Eosinophils % (0 - 5 %) 0.3 Basophils % (0.0 - 2.0 %) 0.3 Absolute Granulocytes (1.4 - 6.5 /CUMM) 10.2 H Absolute Lymphocytes (1.2 - 3.4 /CUMM) 1.9 Absolute Monocytes (0.10 - 0.60 /CUMM) 0.8 H Absolute Eosinophils (0.0 - 0.7 /CUMM) 0 Absolute Basophils (0.0 - 0.2 /CUMM) 0 PUBS MCHC (33.0 - 37.0 G/DL) 32.2 L Diagnostic Data EKG Results atrial fibrillation / coarse atrial flutter with variable conduction and rapid rate with STT changes. CXR Results FINDINGS: The lungs are relatively well expanded, without evidence of focal airspace consolidation or overt edema. Subsegmental atelectatic changes are again noted at the left lung base and may be chronic. Heart size is prominent, although stable. There are no large pleural effusions. Chronic right-sided rib fractures are again noted. IMPRESSION: No convincing radiographic evidence of an acute cardiopulmonary process. Assessment/Plan Assessment/Plan Assessment: 1. Atrial fibrillation / flutter with rapid rate and presyncope. 2. [place] hypotension 3. Possible seizure history 4. DM 5. Hypomagnesemia 6. Microcytic anemia 7. Leukocytosis 8. Elevated proBNP Recommendations: -observation on telemetry -continue regular meds -IV cardizem titrated to heart rate; consider transition to oral in AM -replete magnesium -check serial troponins -check orthostatic heart rate and BP qshift x 3 -continue anticoagulation with Eliquis for now -neurology input pending -no need to repete echocardiogram for now Consult Acknowledgment - Thank you for your consult request.
[2017-06-17 22:12] VITALS: BP 100/52
[2017-06-18 05:46] VITALS: BP 122/70
[2017-06-18 08:17] LABS: ABSOLUTE BASOPHIL COUNT 0 /CUMM (0.0-0.2); ABSOLUTE EOSINOPHIL COUNT 0.1 /CUMM (0.0-0.7); ABSOLUTE GRANULOCYTE CT 7.2 /CUMM (1.4-6.5); ABSOLUTE LYMPH COUNT 1.5 /CUMM (1.2-3.4); ABSOLUTE MONOCYTE COUNT 0.6 /CUMM (0.10-0.60); BASOPHIL % 0.3 % (0.0-2.0); EOSINOPHIL % 1.2 % (0-5); GRANULOCYTE % 76.2 % (42.2-75.2); HEMATOCRIT 29.3 % (37-47); MEAN CORPUSCULAR HGB 25.5 PG (27.0-31.0); MEAN CORPUSCULAR HGB CONC 32.2 G/DL (33.0-37.0); MEAN CORPUSCULAR VOLUME 79.4 FL (81.0-99.0); MEAN PLATELET VOLUME 9.8 FL (7.4-10.4); PLATELET COUNT 268 /CUMM (130-400); RBC DISTRIBUTION WIDTH 26.8 % (11.5-14.5); RED BLOOD CELL CT 3.69 /CUMM (4.20-5.40); WHITE BLOOD CELL COUNT 9.4 /CUMM (4.8-10.8)
[2017-06-18 09:20] VITALS: BP 112/66
--- NOTE | 2017-06-18 11:32 | Patient Discharge Instructions ---
Discharge Instructions General Discharge Information You were seen/treated for: ATRIAL FIBRILLATION/ATRIAL FLUTTER Special Instructions: 1. PLEASE FOLLOW UP WITH YOUR PCP DR. DUBOSE IN ONE WEEK 2. PLEASE FOLLOW UP WITH DR. CUI IN 1 WEEK for tilt table test Diet Continue normal diet: Yes Activity Full Activity/No Limits: Yes Acute Coronary Syndrome Inclusion Criteria At DC or during hospital stay patient has or had the following: ACS DIAGNOSIS No Discharge Core Measures Meds if any: Prescribed or Continued at Discharge Meds if any: NOT Prescribed or Continued at Discharge Congestive Heart Failure Inclusion Criteria At DC or during hospital stay patient has or had the following: CHF DIAGNOSIS Yes Discharge Core Measures Meds if any: Prescribed or Continued at Discharge Meds if any: NOT Prescribed or Continued at Discharge Cerebrovascular accident Inclusion Criteria At DC or during hospital stay patient has or had the following: CVA/TIA Diagnosis Yes Discharge Core Measures Meds if any: Prescribed or Continued at Discharge Meds if any: NOT Prescribed or Continued at Discharge Venous thromboembolism Inclusion Criteria VTE Diagnosis Yes VTE Type NONE VTE Confirmed by (Test) NONE Discharge Core Measures - Per Current guidelines, there needs to be overlap - treatment for the first 5 days of Warfarin therapy. - If discharged on Warfarin prior to 5 days of - overlap therapy, the patient will need to be - assessed for post discharge needs including - *Post discharge parental anticoagulation - *Warfarin and/or parental anticoagulation education - *Follow up date to check INR post discharge At least 5 days overlap therapy as Inpatient No Meds if any: Prescribed or Continued at Discharge Note: Overlap Therapy is Warfarin and Anticoagulant Meds if any: NOT Prescribed or Continued at Discharge
--- NOTE | 2017-06-18 11:36 | PN- Cardiology ---
Subjective Subjective: The patient reports that she is feeling better. Of note, she she reports that she did not take her medications on the day of admission because she had already doctor's appointment. She notes that she normally rarely misses doses. She is currently feeling well. No current chest pain or shortness of breath. No palpitations. No nausea or vomiting. nitroglycerin neutralizer reveals sinus rhythm. Objective Vital Signs and I&Os Vital Signs Date Time Temp Pulse Resp B/P B/P Pulse O2 O2 Flow FiO2 Mean Ox Delivery Rate 06/18 1017 79 112/66 06/18 0920 79 112/66 06/18 0918 79 112/66 06/18 0800 Nasal 2.0L Cannula 06/18 0546 98.2 76 20 122/70 100 Nasal Cannula 06/17 2212 97.4 68 20 100/52 94 06/17 2000 Nasal 2.0L Cannula 06/17 1848 97.3 68 18 108/59 96 06/17 1729 Room Air 06/17 1728 97.0 72 16 106/60 98 Room Air 06/17 1401 87 98/59 06/17 1253 97.4 87 18 98/59 96 Intake & Output 06/18 1600 06/18 0800 06/18 0000 06/17 1600 06/17 0800 06/17 0000 Intake Total 55 360 0 Output Total 300 200 Balance -245 160 0 Intake, IV 35 300 Intake, Oral 20 60 0 Number 0 Bowel Movements Output, Urine 300 200 Patient 183 lb 183 lb Weight Weight Reported by Patient Measurement Method Physical Exam: Gen: NAD HEENT: normal Lungs: clear to auscultation, normal resp. effort Heart: RRR, S1, S2, no murmurs Abdomen: Soft, nontender, no masses Extremities: No clubbing, cyanosis, or edema. Neuro: Alert and oriented x 3, cranial nerves intact Current Medications: Current Medications Sig/Miriam Start time Last Medication Dose Route Stop Time Status Admin Acetaminophen 650 MG Q6P PRN 06/17 1445 AC 06/18 PO 0559 Acetaminophen 1,000 MG Q6P PRN 06/17 144 AC IV Apixaban 5 MG BID 06/17 2200 CAN PO Apixaban 5 MG BID 06/17 1247 AC 06/18 PO 0915 Atorvastatin Calcium 20 MG 1700 06/17 1700 AC 06/17 PO 1638 Cholecalciferol 1,000 IU DAILY 06/17 1447 AC 06/18 PO 0916 Citalopram 10 MG DAILY 06/17 1440 AC 06/18 Hydrobromide PO 0915 Cyanocobalamin 1,000 MCG DAILY 06/17 1440 AC 06/18 PO 0915 Diltiazem HCl 30 MG Q8 06/18 1015 AC 06/18 PO 1017 Diltiazem HCl 125 MG Q24H 06/17 1730 DC 06/18 Sodium Chloride 100 ML IV 0734 Diltiazem HCl 125 MG ONCE ONE 06/17 1200 DC 06/17 Sodium Chloride 100 ML IV 06/18 0029 1316 Ferrous Sulfate 325 MG DAILY 06/17 1441 AC 06/18 PO 0915 Folic Acid 1 MG DAILY 06/17 1441 AC 06/18 PO 0915 Insulin Aspart 0 TIDAC 06/17 1445 AC SC Insulin Detemir 10 UNITS BID 06/18 1000 AC 06/18 SC 0915 Magnesium Sulfate 1 GM Q2H 06/17 1445 DC 06/17 Dextrose/Water 100 ML IV 06/17 1844 2031 Metoprolol Tartrate 12.5 MG BID 06/17 2200 AC 06/18 PO 0918 Metoprolol Tartrate 12.5 MG ONCE ONE 06/17 1300 DC 06/17 PO 06/17 1301 1401 Nicotine 21 MG DAILY 06/17 1439 AC 06/18 TOP 0921 Omeprazole 40 MG DAILY AC 06/17 1442 AC 06/18 PO 0557 Pregabalin 0 .STK-MED ONE 06/17 1647 DC PO Pregabalin 100 MG DAILY 06/17 1442 AC 06/18 PO 0915 Tiotropium [place] 1 PUF DAILY 06/17 1443 AC 06/18 INH 0916 Results Last 48 Hrs of Labs/Mics: Laboratory Tests 06/18/17 0619: Anion Gap 14, Estimated GFR > 60, BUN/Creatinine Ratio 30.0 H, CBC w Diff NO MAN DIFF REQ, RBC 3.69 L, MCV 79.4 L, MCH 25.5 L, RDW 26.8 H, MPV 9.8, Gran % 76.2 H, Lymphocytes % 16.4 L, Monocytes % 5.9, Eosinophils % 1.2, Basophils % 0.3, Absolute Granulocytes 7.2 H, Absolute Lymphocytes 1.5, Absolute Monocytes 0.6, Absolute Eosinophils 0.1, Absolute Basophils 0, PUBS MCHC 32.2 L 06/18/17 0120: Troponin I 0.04 06/17/17 1719: Troponin I 0.04 06/17/17 1115: Anion Gap 16, Estimated GFR 55 L, BUN/Creatinine Ratio 34.0 H, Glucose 91, Calcium 8.9, Magnesium 1.4 L, Total Bilirubin 0.3, AST 18, ALT 26, Alkaline Phosphatase 137 H, Troponin I 0.04, Uyt-F-Idrlrnwhoja Pept 63857 H, Total Protein 7.3, Albumin 4.1, Globulin 3.2, Albumin/Globulin Ratio 1.3, 25-OH Vitamin D Total 19.8 L, PT 14.9 H, INR 1.42 H, APTT 40 H, CBC w Diff NO MAN DIFF REQ, RBC 4.31, MCV 78.5 L, MCH 25.3 L, RDW 26.5 H, MPV 10.0, Gran % 78.9 H, Lymphocytes % 14.6 L, Monocytes % 5.9, Eosinophils % 0.3, Basophils % 0.3, Absolute Granulocytes 10.2 H, Absolute Lymphocytes 1.9, Absolute Monocytes 0.8 H, Absolute Eosinophils 0, Absolute Basophils 0, PUBS MCHC 32.2 L Recent Imaging Studies: Chest x-ray: No convincing radiographic evidence of an acute cardiopulmonary process. Assessment/Plan Assessment/Plan Assessment: 1. Paroxysmal atrial fibrillation and atrial flutter. 2. Rapid rate on presentation secondary to noncompliance with diltiazem. Rate now under control on oral diltiazem 3. COPD 4. Possible presyncope, no evidence of seizure activity * Resume Cardizem CD 180 mg daily, which is her usual outpatient dose * Continue Eliquis * Continue other cardiac medications * Cleared for discharge from cardiac standpoint. * Follow up in the office in 1 week Continue telemetry? No
--- NOTE | 2017-06-18 11:49 | PN-Observation ---
Observation Note Observation Note _ I have personally examined LUIZA MONTANEZ. her disposition is uncertain at this time. Before a determination can be made, she requires continued observation for the following reasons A flutter/atrial fibrillation, question of seizure, elevated proBNP Assessment/Plan Assessment: Patient is a 67 year old female with a PMH significant for hypertension, atrial fibrillation, CAD, COPD, GERD, diabetes that is brought in by ambulance today for presyncopal episode and A. fib/A flutter to 170. Patient states that she had a seizure today but as per EMS and office staff where she was seeing her primary care doctor, she had a presyncopal episode brought on by standing up. The patient has a history of atrial fib/flutter and she had a cardioversion. She usually takes Eliquis 5 mg, diltiazem, metoprolol. In the ED, patient vitals were temperature 98, pulse rate 135, respiratory rate 24, blood pressure 97/62, 96% oxygen saturation on 2 L. Labs showed WBC 12.9, hemoglobin 10.9, creatinine 1.0, MCV 78.5, BNP 13,000, troponin negative, alkaline phosphatase 137, magnesium 1.4, potassium 4.3. Of note the patient's previous admission she had BNP 1000. Patient had thyroid function tests done in May which was normal. The patient takes daily B12. Her last vitamin D was 12.1 and she was being prescribed vitamin D supplementation. In the ED urine cultures and blood cultures were taken and chest x-ray was found to be negative. She was given 12.5 of Lopressor, Eliquis 5 mg and a diltiazem drip. The patient's EKG showed a rate of 103, 2-1 or 3-1 atrial flutter, QTC 466. Telemetry monitoring in the room on interview showed heart rate ranging between 111-128 and blood pressure 98/59. Last night patient converted back to normal sinus rhythm and stayed there. Patient was actually discharged today but then was readmitted because of a presyncopal episode with hypotension this afternoon. Please see event note. Plan Patient is observed in telemetry for the following: #1 atrial fibrillation/flutter Dr. Boss following the patient today. He states that Cardizem drip can be stopped and patient can be transferred to Cardizem 30 mg every 8 and then when she leaves, Cardizem 180. No need for repeat echocardiogram she recently had one. Troponins and EKGs have been negative for ACS Continue patient's Eliquis and metoprolol As patient is on Eliquis, do not give NSAIDs #2 question of seizure/Syncopal episode Consult with Dr. Cosby, he states that patient did not fact have a seizure and will sign off. However now with patient's repeat admission he will again get suggestions as evening Hold off on EEG for now We will do orthostatics #3 nicotine dependence nicotine patch #4 chronic medical problems We will restart patient's PPI, Lyrica and put her on sliding scale NovoLog insulin Accu-Cheks #5 patient has elevated proBNP that we are attributing to her A. fib with RVR. When patient returned to the hospital after her presyncopal episode, we started her on 100 mL per hour of fluids which we decreased to 50 mL per hour as we did not one to try the patient into flash pulmonary edema Patient is full code Problem List: 1. Atrial fibrillation with RVR Subjective Follow-up For: A. fib/A flutter Question of seizure Elevated proBNP Tele-Events Since Last Visit: Patient converted to sinus rhythm last night at 7:34 PM and has remained there with rates overnight from 68-74 with evidence of first-degree heart block. Subjective: Patient states that she is feeling "okay" today. She has no specific complaints but worries about her repeated "seizures". Review of Systems Constitutional: Reports: no symptoms. Objective Last 24 Hrs of Vital Signs/I&O Vital Signs Date Time Temp Pulse Resp B/P B/P Pulse O2 O2 Flow FiO2 Mean Ox Delivery Rate 06/18 1658 97.8 72 20 140/60 95 Nasal 2.0L Cannula 06/18 1317 79 76/54 06/18 1309 98.6 79 20 76/54 96 Nasal 2.0L Cannula 06/18 1017 79 112/66 06/18 0920 79 112/66 06/18 0918 79 112/66 06/18 0800 Nasal 2.0L Cannula 06/18 0546 98.2 76 20 122/70 100 Nasal Cannula 06/17 2212 97.4 68 20 100/52 94 06/17 2000 Nasal 2.0L Cannula 06/17 1848 97.3 68 18 108/59 96 Intake & Output 06/18 1600 06/18 0800 01/11 0000 Intake Total 55 360 Output Total 300 200 Balance -245 160 Intake, IV 35 300 Intake, Oral 20 60 Number 0 Bowel Movements Output, Urine 300 200 Patient 183 lb Weight Physical Exam General Appearance: Alert, Oriented X3, Cooperative, No Acute Distress Skin: No Rashes Skin Temp/Moisture Exam: Warm/Dry Sepsis Skin Exam (color): Normal for Ethnicity Cardiovascular: Regular Rate, Normal S1, Normal S2, No Murmurs Lungs: Clear to Auscultation, Normal Air Movement Abdomen: Normal Bowel Sounds, Soft, No Tenderness Neurological: Normal Speech Extremities: No Clubbing, No Cyanosis, Normal Pulses
[2017-06-18 13:09] VITALS: BP 76/54
--- NOTE | 2017-06-18 13:31 | Event Note ---
See Addendum Event Note Event Note: At around 12:30 rapid response was called for this patient who was just discharged. According to rapid response team she was in a wheelchair on the way to her car when she stood up to get into the car and felt very weak and had a drop attack. She did not lose consciousness and did not fall. She was brought back up to the floors where her blood pressure was taken and was 70/40. An EKG was ordered which showed Benitez diagnosed atrial fibrillation and an ABG was drawn and she was started on 100 mL per hour of fluid which we later decreased to 50 mL per hour due to the patient's congestive heart failure. The patient was seen and states that she feels okay now and is currently laying in bed watching TV. Resident and attending are aware of the patient's return. Her discharge order was canceled. Patient will continue to be obs.
[2017-06-18 16:58] VITALS: BP 140/60
--- NOTE | 2017-06-18 17:09 | PN- Att Addend ---
Attending MD Review Statement Attending Statement Attending MD Statement: examined this patient, discuss w/resident/PA/PUTTY MIXER, agreed w/resident/PA/PUTTY MIXER, reviewed EMR data (avail), discussed w/nursing, discussed w/ case mgmt Attending Assessment/Plan: pt was seen by cardiology and overnight stayed in [facility] . Pt was planned to be dced and was switched to cardizem 180mg CD but when pt was trying to get into car she had another presyncopal episode and pt was found to have low BP and was brought back to her room after a APPLICATION CONSULTANT was called. Pt likely may have autonomic neuropathy and will check postural hypotension and will put her on compression stockings. Pt had similar episode in clinic on the day of admission. Will have cardiology reevaluate her and will monitor her overnight and do orthostatic bp check in am again.
[2017-06-18 23:10] VITALS: BP 130/70
[2017-06-19 06:32] VITALS: BP 136/78
[2017-06-19 08:16] LABS: ABSOLUTE BASOPHIL COUNT 0 /CUMM (0.0-0.2); ABSOLUTE EOSINOPHIL COUNT 0.2 /CUMM (0.0-0.7); ABSOLUTE GRANULOCYTE CT 7.1 /CUMM (1.4-6.5); ABSOLUTE LYMPH COUNT 1.8 /CUMM (1.2-3.4); ABSOLUTE MONOCYTE COUNT 0.6 /CUMM (0.10-0.60); BASOPHIL % 0.3 % (0.0-2.0); EOSINOPHIL % 1.9 % (0-5); GRANULOCYTE % 73.2 % (42.2-75.2); HEMATOCRIT 31.3 % (37-47); MEAN CORPUSCULAR HGB 25.8 PG (27.0-31.0); MEAN CORPUSCULAR HGB CONC 32.5 G/DL (33.0-37.0); MEAN CORPUSCULAR VOLUME 79.6 FL (81.0-99.0); MEAN PLATELET VOLUME 10.1 FL (7.4-10.4); PLATELET COUNT 294 /CUMM (130-400); RBC DISTRIBUTION WIDTH 25.7 % (11.5-14.5); RED BLOOD CELL CT 3.93 /CUMM (4.20-5.40); WHITE BLOOD CELL COUNT 9.7 /CUMM (4.8-10.8)
[2017-06-19 10:26] VITALS: BP 118/64
--- NOTE | 2017-06-19 13:17 | PN- Cardiology ---
Subjective Subjective: Events noted, patient stable today. Yesterday, at the time of discharge, the patient was noted to be presyncopal and hypotensive one attempting to enter her car. Since readmission to the telemetry floor, the patient's blood pressure has been stable, there have been no new arrhythmias or significant bradycardia or tachycardia noted and no documented orthostasis. Objective Vital Signs and I&Os Vital Signs Date Time Temp Pulse Resp B/P B/P Pulse O2 O2 Flow FiO2 Mean Ox Delivery Rate 06/19 1026 73 118/64 06/19 08 75 136/78 06/19 0800 94 Nasal 2.0L Cannula 06/19 0646 75 136/78 06/19 0632 98.2 76 20 136/78 94 Nasal 2.0L Cannula 06/18 2310 98.3 74 20 130/70 94 Nasal Cannula 06/18 2114 Nasal 2.0L Cannula 06/18 2106 75 130/70 06/18 210 75 130/70 06/18 1658 97.8 72 20 140/60 95 Nasal 2.0L Cannula 06/18 1317 79 76/54 Intake & Output 06/19 1600 06/19 0800 06/19 0000 06/18 1600 06/18 0800 06/18 0000 Intake Total 640 500 55 360 Output Total 500 400 500 300 200 Balance -500 240 0 -245 160 Intake, IV 400 20 35 300 Intake, Oral 240 480 20 60 Number 0 Bowel Movements Output, Urine 500 400 500 300 200 Patient 183 lb Weight Current Medications: Current Medications Sig/Miriam Start time Last Medication Dose Route Stop Time Status Admin Acetaminophen 650 MG Q6P PRN 06/17 1445 AC 06/18 PO 0559 Acetaminophen 1,000 MG Q6P PRN 06/17 144 AC IV Apixaban 5 MG BID 06/17 1247 AC 06/19 PO 0812 Atorvastatin Calcium 20 MG 1700 06/17 1700 AC 06/18 PO 1638 Cholecalciferol 1,000 IU DAILY 06/17 1447 AC 06/19 PO 0811 Citalopram 10 MG DAILY 06/17 144 AC 06/19 Hydrobromide PO 0812 Cyanocobalamin 1,000 MCG DAILY 06/17 1440 AC 06/19 PO 0811 Diltiazem HCl 30 MG Q8 06/18 1015 AC 06/19 PO 0646 Ferrous Sulfate 325 MG DAILY 06/17 1441 AC 06/19 PO 0812 Folic Acid 1 MG DAILY 06/17 1441 AC 06/19 PO 0812 Insulin Aspart 0 TIDAC 06/17 1445 AC SC Insulin Detemir 10 UNITS BID 06/18 1000 AC 06/19 SC 0819 Metoprolol Tartrate 12.5 MG BID 06/17 2200 AC 06/19 PO 0811 Nicotine 21 MG DAILY 06/17 1439 AC 06/19 TOP 0812 Omeprazole 40 MG DAILY AC 06/17 1442 AC 06/19 PO 0647 Pregabalin 100 MG DAILY 06/17 1442 AC 06/19 PO 0812 Sodium Chloride 500 ML BOLUS ONE 06/18 1345 DC 06/18 IV 06/18 2344 1313 Sodium Chloride 1,000 ML Q10H 06/18 1315 DC 06/18 IV 06/18 2314 1313 Tiotropium [place] 1 PUF DAILY 06/17 1443 AC 06/19 INH 0851 Results Last 48 Hrs of Labs/Mics: Laboratory Tests 06/19/17 0716: Anion Gap 13, Estimated GFR > 60, BUN/Creatinine Ratio 21.3, CBC w Diff NO MAN DIFF REQ, RBC 3.93 L, MCV 79.6 L, MCH 25.8 L, RDW 25.7 H, MPV 10.1, Gran % 73.2, Lymphocytes % 18.6 L, Monocytes % 6.0, Eosinophils % 1.9, Basophils % 0.3 , Absolute Granulocytes 7.1 H, Absolute Lymphocytes 1.8, Absolute Monocytes 0.6 , Absolute Eosinophils 0.2, Absolute Basophils 0, PUBS MCHC 32.5 L 06/18/17 1255: pH 7.42, pCO2 42, pO2 83, HCO3 26, ABG O2 Sat (Measured) 95.0 L, P-50 (Temp Corrected) N, Carboxyhemoglobin 0.4 L, O2 Concentration % 2LPM, O2 Delivery Method NC, Phlebotomy Draw Site RIGHT RADIAL 06/18/17618: Anion Gap 14, Estimated GFR > 60, BUN/Creatinine Ratio 30.0 H, CBC w Diff NO MAN DIFF REQ, RBC 3.69 L, MCV 79.4 L, MCH 25.5 L, RDW 26.8 H, MPV 9.8, Gran % 76.2 H, Lymphocytes % 16.4 L, Monocytes % 5.9, Eosinophils % 1.2, Basophils % 0.3, Absolute Granulocytes 7.2 H, Absolute Lymphocytes 1.5, Absolute Monocytes 0.6, Absolute Eosinophils 0.1, Absolute Basophils 0, PUBS MCHC 32.2 L 06/18/17 0120: Troponin I 0.04 06/17/17 1719: Troponin I 0.04 Assessment/Plan Assessment/Plan Assessment: 1. Paroxysmal atrial fibrillation and atrial flutter. 2. Rapid rate on presentation secondary to noncompliance with diltiazem. Rate now under control on oral diltiazem 3. COPD 4. Recurrent presyncope with no evidence of seizure activity and documented associated hypotension * Resume Cardizem CD at 120 mg daily * Continue Eliquis * Continue other cardiac medications * Cleared for discharge from cardiac standpoint as the patient ambulate safely with no evidence of any recurrent symptoms or hypotension * Please have the patient fitted for support stockings prior to discharge * Follow up in the office in [address] Boss * Consideration for outpatient tilt table test to be discussed next visit with Dr. Boss.
[2017-06-19] MEDS ORDERED: DILTIAZEM 24HR120 MG PO (13:47)
[2017-06-19 14:18] VITALS: BP 110/68
--- NOTE | 2017-06-19 14:32 | PN-Observation ---
Observation Note Observation Note _ I have personally examined LUIZA MONTANEZ. her disposition is uncertain at this time. Before a determination can be made, she requires continued observation for the following reasons presyncope and atrial fib flutter Assessment/Plan Assessment: Patient is a 67 year old female with a PMH significant for hypertension, atrial fibrillation, CAD, COPD, GERD, diabetes that is brought in by ambulance today for presyncopal episode and A. fib/A flutter to 170. Patient states that she had a seizure today but as per EMS and office staff where she was seeing her primary care doctor, she had a presyncopal episode brought on by standing up. The patient has a history of atrial fib/flutter and she had a cardioversion. She usually takes Eliquis 5 mg, diltiazem, metoprolol. In the ED, patient vitals were temperature 98, pulse rate 135, respiratory rate 24, blood pressure 97/62, 96% oxygen saturation on 2 L. Labs showed WBC 12.9, hemoglobin 10.9, creatinine 1.0, MCV 78.5, BNP 13,000, troponin negative, alkaline phosphatase 137, magnesium 1.4, potassium 4.3. Of note the patient's previous admission she had BNP 1000. Patient had thyroid function tests done in May which was normal. The patient takes daily B12. Her last vitamin D was 12.1 and she was being prescribed vitamin D supplementation. In the ED urine cultures and blood cultures were taken and chest x-ray was found to be negative. She was given 12.5 of Lopressor, Eliquis 5 mg and a diltiazem drip. The patient's EKG showed a rate of 103, 2-1 or 3-1 atrial flutter, QTC 466. Telemetry monitoring in the room on interview showed heart rate ranging between 111-128 and blood pressure 98/59. Last night patient converted back to normal sinus rhythm and stayed there. Patient was actually discharged today but then was readmitted because of a presyncopal episode with hypotension this afternoon. Please see event note. Plan Patient is observed in telemetry for the following: #1 atrial fibrillation/flutter Dr. Daniel following the patient today. He states that we should send patient out on cardizem 120instead of 180 as patient had presyncopal episode yesterday upson leaving with low bp No need for repeat echocardiogram she recently had one. Troponins and EKGs have been negative for ACS Continue patient's Eliquis and metoprolol As patient is on Eliquis, do not give NSAIDs #2 question of seizure/Syncopal episode Consult with Dr. Cosby, he states that patient did not fact have a seizure and will sign off. However now with patient's repeat admission he will again get suggestions as evening Hold off on EEG for now orthostats negative x3 PT eval for safety assessment #3 nicotine dependence nicotine patch #4 chronic medical problems We will restart patient's PPI, Lyrica and put her on sliding scale NovoLog insulin Accu-Cheks Patient is full code Problem List: 1. A-fib Subjective Follow-up For: presyncopal episode afib Review of Systems Constitutional: Reports: no symptoms. Objective Last 24 Hrs of Vital Signs/I&O Vital Signs Date Time Temp Pulse Resp B/P B/P Pulse O2 O2 Flow FiO2 Mean Ox Delivery Rate 06/19 1600 Nasal 2.0L Cannula 06/19 1431 80 110/68 06/19 1418 98.2 80 20 110/68 94 Nasal 2.0L Cannula 06/19 1026 73 118/64 06/19 0811 75 136/78 06/19 0800 94 Nasal 2.0L Cannula 06/19 0646 75 136/78 06/19 0632 98.2 76 20 136/78 94 Nasal 2.0L Cannula 06/18 2310 98.3 74 20 130/70 94 Nasal Cannula Intake & Output 06/19 1600 06/19 0800 06/19 0000 Intake Total 500 640 Output Total 500 400 Balance 500 -500 240 Intake, IV 400 Intake, Oral 500 240 Output, Urine 500 400 Physical Exam General Appearance: Alert, Oriented X3, Cooperative, No Acute Distress
--- NOTE | 2017-06-19 15:23 | PN- Att Addend ---
Attending MD Review Statement Attending Statement Attending MD Statement: examined this patient, discuss w/resident/PA/ESTIMATE CLERK, agreed w/resident/PA/ESTIMATE CLERK, reviewed EMR data (avail), discussed w/nursing, discussed w/ case mgmt Attending Assessment/Plan: Laboratory Tests 06/19/17 0716: Anion Gap 13, Estimated GFR > 60, BUN/Creatinine Ratio 21.3, CBC w Diff NO MAN DIFF REQ, RBC 3.93 L, MCV 79.6 L, MCH 25.8 L, RDW 25.7 H, MPV 10.1, Gran % 73.2, Lymphocytes % 18.6 L, Monocytes % 6.0, Eosinophils % 1.9, Basophils % 0.3 , Absolute Granulocytes 7.1 H, Absolute Lymphocytes 1.8, Absolute Monocytes 0.6 , Absolute Eosinophils 0.2, Absolute Basophils 0, PUBS MCHC 32.5 L Vital Signs Date Time Temp Pulse Resp B/P B/P Pulse O2 O2 Flow FiO2 Mean Ox Delivery Rate 06/19 1431 80 110/68 06/19 1418 98.2 80 20 110/68 94 Nasal 2.0L Cannula 06/19 1026 73 118/64 06/19 0811 75 136/78 06/19 0800 94 Nasal 2.0L Cannula 06/19 0646 75 136/78 06/19 0632 98.2 76 20 136/78 94 Nasal 2.0L Cannula 06/18 2310 98.3 74 20 130/70 94 Nasal Cannula 06/18 2114 Nasal 2.0L Cannula 06/18 2107 75 130/70 06/18 2107 75 130/70 06/18 1658 97.8 72 20 140/60 95 Nasal 2.0L Cannula Orthostatic BP checked showed not significant bp drop. d/w dr gandhi from neuro the possibility of autonomic dysfucntion but looks less likely. BP Stayed stable and pt is being dced home in stable condition . pt is on home oxygen at 2 L , will be dced on same. case management ensuring she has supplies at home. d/w pt the care plan.
[2017-06-19 21:59] VITALS: BP 108/70
[2017-06-20 08:48] VITALS: BP 124/72
[2017-06-20 09:21] VITALS: BP 126/76
[2017-06-20 09:23] VITALS: BP 126/76
--- NOTE | 2017-06-20 10:58 | PN- Att Addend ---
Attending Addendum Attending Brief Note Patient seen and examined. Sitting up in bed not in any acute distress. No issues overnight reported by nursing staff. On telemetry monitoring she was in normal sinus rhythm with no events. She denies chest pain or palpitations. Denies shortness of breath or cough. She is eager to be discharged home today. Vital Signs Date Time Temp Pulse Resp B/P B/P Pulse O2 O2 Flow FiO2 Mean Ox Delivery Rate 06/20 922 82 126/76 06/20 0921 82 126/76 06/20 0848 97.7 74 22 124/72 96 Nasal Cannula 06/20 0800 Nasal 2.0L Cannula 06/20 0510 71 124/72 06/19 2254 76 108/58 06/19 2254 76 108/58 06/19 2159 98.6 78 22 108/70 95 Nasal Cannula 06/19 1600 Nasal 2.0L Cannula 06/19 1431 80 110/68 06/19 1418 98.2 80 20 110/68 94 Nasal 2.0L Cannula General appearance: Well-developed and not in any acute distress Heart: S1-S2 regular Lungs: Good entry bilaterally, clear to auscultation Abdomen: Soft and nontender with normal bowel sounds Extremities: No pedal edema Skin: Intact with no rashes. Problems: 1. Syncope presumed to be secondary to autonomic dysfunction for evaluation by the primary team and cardiology service. However no orthostatic hypotension has been documented during the stay. She did have episode of hypotension on admission. 2. Atrial fibrillation/flutter; patient currently in normal sinus rhythm. Plan: -Patient was scheduled for discharge yesterday but could not get into her house. She currently reports that she is able to go back home today. She will be discharged home today as initially planned by the primary team. -She has been advised to resume her Cardizem which she had initially stopped prior to admission. -She is to follow-up with her primary care provider and cardiology service as an outpatient.
--- NOTE | 2017-06-20 11:40 | PN- Housestaff ---
Assessment/Plan Assessment: Patient is a 67 year old female with a PMH significant for hypertension, atrial fibrillation, CAD, COPD, GERD, diabetes that is brought in by ambulance today for presyncopal episode and A. fib/A flutter to 170. Patient states that she had a seizure today but as per EMS and office staff where she was seeing her primary care doctor, she had a presyncopal episode brought on by standing up. The patient has a history of atrial fib/flutter and she had a cardioversion. She usually takes Eliquis 5 mg, diltiazem, metoprolol. In the ED, patient vitals were temperature 98, pulse rate 135, respiratory rate 24, blood pressure 97/62, 96% oxygen saturation on 2 L. Labs showed WBC 12.9, hemoglobin 10.9, creatinine 1.0, MCV 78.5, BNP 13,000, troponin negative, alkaline phosphatase 137, magnesium 1.4, potassium 4.3. Of note the patient's previous admission she had BNP 1000. Patient had thyroid function tests done in May which was normal. The patient takes daily B12. Her last vitamin D was 12.1 and she was being prescribed vitamin D supplementation. In the ED urine cultures and blood cultures were taken and chest x-ray was found to be negative. She was given 12.5 of Lopressor, Eliquis 5 mg and a diltiazem drip. The patient's EKG showed a rate of 103, 2-1 or 3-1 atrial flutter, QTC 466. Telemetry monitoring in the room on interview showed heart rate ranging between 111-128 and blood pressure 98/59. Last night patient converted back to normal sinus rhythm and stayed there. Patient was actually discharged today but then was readmitted because of a presyncopal episode with hypotension this afternoon. Please see event note. Plan Patient is observed in telemetry for the following: #1 atrial fibrillation/flutter Dr. Daniel following the patient today. He states that we should send patient out on cardizem 120instead of 180 as patient had presyncopal episode yesterday upson leaving with low bp No need for repeat echocardiogram she recently had one. Troponins and EKGs have been negative for ACS Continue patient's Eliquis and metoprolol As patient is on Eliquis, do not give NSAIDs #2 question of seizure/Syncopal episode Consult with Dr. Cosby, he states that patient did not fact have a seizure and will sign off. However now with patient's repeat admission he will again get suggestions as evening Hold off on EEG for now orthostats negative x3 PT eval for safety assessment #3 nicotine dependence nicotine patch #4 chronic medical problems We will restart patient's PPI, Lyrica and put her on sliding scale NovoLog insulin Accu-Cheks Patient is full code
--- NOTE | 2017-06-20 19:16 | PN-Observation ---
Observation Note Observation Note _ I have personally examined LUIZA MONTANEZ. her disposition is uncertain at this time. Before a determination can be made, she requires continued observation for the following reasons presyncopal episdoe / afib Assessment/Plan Assessment: Patient is a 67 year old female with a PMH significant for hypertension, atrial fibrillation, CAD, COPD, GERD, diabetes that is brought in by ambulance today for presyncopal episode and A. fib/A flutter to 170. Patient states that she had a seizure today but as per EMS and office staff where she was seeing her primary care doctor, she had a presyncopal episode brought on by standing up. The patient has a history of atrial fib/flutter and she had a cardioversion. She usually takes Eliquis 5 mg, diltiazem, metoprolol. In the ED, patient vitals were temperature 98, pulse rate 135, respiratory rate 24, blood pressure 97/62, 96% oxygen saturation on 2 L. Labs showed WBC 12.9, hemoglobin 10.9, creatinine 1.0, MCV 78.5, BNP 13,000, troponin negative, alkaline phosphatase 137, magnesium 1.4, potassium 4.3. Of note the patient's previous admission she had BNP 1000. Patient had thyroid function tests done in May which was normal. The patient takes daily B12. Her last vitamin D was 12.1 and she was being prescribed vitamin D supplementation. In the ED urine cultures and blood cultures were taken and chest x-ray was found to be negative. She was given 12.5 of Lopressor, Eliquis 5 mg and a diltiazem drip. The patient's EKG showed a rate of 103, 2-1 or 3-1 atrial flutter, QTC 466. Telemetry monitoring in the room on interview showed heart rate ranging between 111-128 and blood pressure 98/59. Last night patient converted back to normal sinus rhythm and stayed there. Patient was actually discharged yesterday but then was readmitted because of a presyncopal episode with hypotension. Please see event note. Plan Patient is observed in telemetry for the following: #1 atrial fibrillation/flutter Dr. Daniel following the patient today. He states that we should send patient out on cardizem 120instead of 180 as patient had presyncopal episode yesterday upson leaving with low bp No need for repeat echocardiogram she recently had one. Troponins and EKGs have been negative for ACS Continue patient's Eliquis and metoprolol As patient is on Eliquis, do not give NSAIDs #2 question of seizure/Syncopal episode Consult with Dr. Cosby, he states that patient did not fact have a seizure and will sign off. However now with patient's repeat admission he will again get suggestions as evening Hold off on EEG for now orthostats negative x3 PT eval for safety assessment says patient can go home. #3 nicotine dependence nicotine patch #4 chronic medical problems We will restart patient's PPI, Lyrica and put her on sliding scale NovoLog insulin Accu-Cheks #5 constipation bowel regimin ordered Patient is full code Problem List: 1. A-fib Subjective Subjective: patient feels good and ready to leave today. she denies any chest pain sob dizziness weakness Review of Systems Constitutional: Reports: no symptoms. Objective Last 24 Hrs of Vital Signs/I&O Vital Signs Date Time Temp Pulse Resp B/P B/P Pulse O2 O2 Flow FiO2 Mean Ox Delivery Rate 06/20 0923 82 126/76 06/20 0921 82 126/76 06/20 0848 97.7 74 22 124/72 96 Nasal Cannula 06/20 0800 Nasal 2.0L Cannula 06/20 0510 71 124/72 06/19 2254 76 108/58 06/19 2254 76 108/58 06/19 2159 98.6 78 22 108/70 95 Nasal Cannula Intake & Output 06/20 1600 06/20 0800 06/20 0000 Intake Total 110 300 Output Total Balance 110 300 Intake, IV 10 Intake, Oral 100 300 Number 0 Bowel Movements Physical Exam General Appearance: Alert, Oriented X3, Cooperative, No Acute Distress
== END 2017-06-20 10:50 ==
LOC: DELPENDDIS → ERH 10:41 → ERHI 12:52 → 1NO 12:52 → ENRESERV 16:58 → ENTRNSPT 18:55 → CMPTRNSPT 19:19 → 1NO 19:38 → CMPBEDREQ 06-18 07:08 → ENPENDDIS 06-18 11:28 → ENTRNSPT 06-18 12:15 → EDTRNSPTSTS 06-18 12:26 → CMPTRNSPT 06-18 12:44 → EDPENDDIS 06-18 13:30 → EDPENDDISTM 06-18 13:30 → 1NO 06-20 09:31 → ENPENDDIS 06-20 09:44 → ENTRNSPT 06-20 10:32 → 1NO 06-20 10:50 → EDTRNSPT 06-20 10:58 → EDTRNSPTSTS 06-20 10:58 → CMPTRNSPT 06-20 11:29
PROVIDERS: Emergency Medicine; Hospitalist; Student in an Organized Health Care Education/Training Program
DX: R55 Syncope and collapse (principal); I48.0 Paroxysmal atrial fibrillation; I48.92 Unspecified atrial flutter; E55.9 Vitamin D deficiency, unspecified; D72.829 Elevated white blood cell count, unspecified; E83.42 Hypomagnesemia; I10 Essential (primary) hypertension; I25.10 Atherosclerotic heart disease of native coronary artery without angina pectoris; J44.9 Chronic obstructive pulmonary disease, unspecified; D50.9 Iron deficiency anemia, unspecified; F10.20 Alcohol dependence, uncomplicated; R56.9 Unspecified convulsions; K21.9 Gastro-esophageal reflux disease without esophagitis; E11.9 Type 2 diabetes mellitus without complications; Z79.4 Long term (current) use of insulin; F17.200 Nicotine dependence, unspecified, uncomplicated; F32.9 Major depressive disorder, single episode, unspecified; Z79.84 Long term (current) use of oral hypoglycemic drugs; Z79.01 Long term (current) use of anticoagulants; Z99.81 Dependence on supplemental oxygen; E87.70 Fluid overload, unspecified; Z79.899 Other long term (current) drug therapy
CPT/HCPCS: 1328; 1387; 1530; 1748; 36415; 71045; 82436; 93005; 93010; 94799; 96374; 96375; 96376; 97116-GP; 97161-GP; 97530-GP; 99291; G0378; G8978-GP; G8979-GP; G8980-GP; J3490; J7040